=== PATIENT | male | born 1930 | race Caucasian/White ===

== ENCOUNTER → 2016-09-12 | Outpatient (REF) | payer MEDICARE, OTHER ==
[~2016-09-12] MED LIST: /AMIO20TA PO; /FERG32TA PO; /METO25TAB PO; /MIRT30TA PO; /PANT40TA PO; ACET500T PO; ACET50TA PO; ALLO100T PO; ASPI81CH21 PO; ASPI81TA7 PO; ATOR1TAB19 PO; CLOP75TA2 PO; CORE25TA PO; FOLI1TAB86 PO; IMOD2TAB14 PO; LIPI10TA PO; LISI5TAB PO; METAPKT PO; MULTTAB4 PO; PERC7.5T12 PO; SERT-138 PO; SLOWTAB2 PO; VITA500C24 PO; XARE10TA PO; ZANT150T PO
[2016-09-12 12:13] LABS: MEAN CORPUSCULAR HEMOGLOBIN 29.7 pg (27.0-33.0); MEAN CORPUSCULAR HGB CONC 31.5 g/dl (32.0-36.5); MEAN CORPUSCULAR VOLUME 94.1 fl (80.0-96.0); RED CELL DISTRIBUTION WIDTH 15.1 % (11.5-14.5); WHITE BLOOD COUNT 7.7 K/mm3 (4.0-10.0)
[2016-09-12 12:47] LABS: ALBUMIN 3.5 GM/DL (3.2-5.2); ALBUMIN/GLOBULIN RATIO 1.25 (1.00-1.93); ALKALINE PHOSPHATASE 148 U/L (45-117); ALT/SGPT 27 U/L (12-78); ANION GAP 9 MEQ/L (8-16); AST/SGOT 26 U/L (15-37); BILIRUBIN,TOTAL 0.3 MG/DL (0.2-1.0); BLOOD UREA NITROGEN 22 MG/DL (7-18); CALCIUM LEVEL 8.7 MG/DL (8.8-10.2); CARBON DIOXIDE LEVEL 26 MEQ/L (21-32); CHLORIDE LEVEL 110 MEQ/L (98-107); CHOLESTEROL LEVEL 136 MG/DL (<200); CREATININE FOR GFR 1.07 MG/DL (0.70-1.30); GLOMERULAR FILTRATION RATE > 60.0 (>35); GLUCOSE, FASTING 104 MG/DL (83-110); POTASSIUM SERUM 4.1 MEQ/L (3.5-5.1); SODIUM LEVEL 145 MEQ/L (136-145); TOTAL PROTEIN 6.3 GM/DL (6.4-8.2); TRIGLYCERIDES LEVEL 49 MG/DL (<150)
== END ==
LOC: M SFHCPLAZ 08:05
PROVIDERS: ATTEND Internal Medicine
DX: K21.9 Gastro-esophageal reflux disease without esophagitis (principal); I10 Essential (primary) hypertension; I25.10 Atherosclerotic heart disease of native coronary artery without angina pectoris

== ENCOUNTER → 2016-11-06 | Outpatient (CLI) | payer MEDICARE, OTHER ==
--- NOTE | 2016-11-06 15:10 | REP ---
CHEST X-RAY: Two views. HISTORY: Paroxysmal atrial fibrillation. Comparison radiographs are from June 30, 2015. FINDINGS: The patient is status post prior median sternotomy. Bipolar pacemaker is seen in place. The heart is moderately enlarged with cardiothoracic ratio 17.3 cm/30 2.6 cm. Pulmonary vasculature is not increased. There is calcific pleural plaquing visible on the right as before. Degenerative changes are seen in the thoracic spine. The aorta is somewhat tortuous. No infiltrate is seen. IMPRESSION: Moderate cardiomegaly. This is increased when compared with the June 30, 2015 prior study. Pacemaker, prior sternotomy. Signed by Germán Pozo MD 11/06/2016 03:36 P
[2016-11-06 17:53] LABS: ALBUMIN 3.9 GM/DL (3.2-5.2); ALKALINE PHOSPHATASE 141 U/L (45-117); ALT/SGPT 19 U/L (12-78); ANION GAP 10 MEQ/L (8-16); AST/SGOT 24 U/L (15-37); BILIRUBIN,TOTAL 0.3 MG/DL (0.2-1.0); BLOOD UREA NITROGEN 20 MG/DL (7-18); CALCIUM LEVEL 8.6 MG/DL (8.8-10.2); CARBON DIOXIDE LEVEL 27 MEQ/L (21-32); CHLORIDE LEVEL 106 MEQ/L (98-107); CREATININE FOR GFR 1.04 MG/DL (0.70-1.30); GLOMERULAR FILTRATION RATE > 60.0 (>35); GLUCOSE, FASTING 172 MG/DL (83-110); MAGNESIUM LEVEL 2.1 MG/DL (1.8-2.4); POTASSIUM SERUM 3.9 MEQ/L (3.5-5.1); SODIUM LEVEL 143 MEQ/L (136-145); TOTAL PROTEIN 6.9 GM/DL (6.4-8.2)
== END ==
LOC: M SMT 14:14
PROVIDERS: ATTEND Nurse Practitioner Family
DX: I48.0 Paroxysmal atrial fibrillation (principal); I51.7 Cardiomegaly; Z95.0 Presence of cardiac pacemaker

== ENCOUNTER 2017-01-29 19:57 | Emergency (ER) | payer MEDICARE, OTHER ==
[~2017-01-29] VITALS: Ht 175.3 cm; Wt 68.0 kg
[2017-01-29] MEDS ORDERED: ATOR1TAB19 (20:12)
[2017-01-29] MEDS ORDERED: SERT-138 (20:12)
[2017-01-29] MEDS ORDERED: FLOM5CAP (20:12)
[2017-01-29] MEDS ORDERED: ALLO15TA (20:12)
[2017-01-29] MEDS ORDERED: MIRT30TA3 (20:12)
[2017-01-29] MEDS ORDERED: LEVO100T5 (20:12)
[2017-01-29] MEDS ORDERED: CARV12.5 (20:12)
[2017-01-29] MEDS ORDERED: AMIO20TA (20:12)
[2017-01-29] MEDS ORDERED: RANI300T PO (20:17)
[2017-01-29] MEDS ORDERED: ASPIRIN 81 MG CHEW TABLET PO ONE (20:30)
[2017-01-29 20:32] LABS: EOS # 0.1 K/mm3 (0.0-0.50); EOS % 1.4 % (0.0-3.0); LARGE UNSTAINED CELL # 0.1 K/mm3 (0.0-0.4); LARGE UNSTAINED CELL % 0.9 % (0.0-4.0); MEAN CORPUSCULAR HEMOGLOBIN 30.1 pg (27.0-33.0); MEAN CORPUSCULAR HGB CONC 32.5 g/dl (32.0-36.5); MEAN CORPUSCULAR VOLUME 92.6 fl (80.0-96.0); MONO # 0.5 K/mm3 (0.0-0.8); MONO % 5.6 % (0.0-5.0); NEUTROPHILS # 7.6 K/mm3 (1.8-7.7); PLATELET COUNT, AUTOMATED 241 k/mm3 (150-450); RED CELL DISTRIBUTION WIDTH 14.9 % (11.5-14.5); WHITE BLOOD COUNT 9.2 K/mm3 (4.0-10.0)
[2017-01-29 21:08] LABS: CALCIUM LEVEL 9.1 MG/DL (8.8-10.2); CREATININE FOR GFR 1.35 MG/DL (0.70-1.30); GLOMERULAR FILTRATION RATE 53.5 (>35); POTASSIUM SERUM 4.2 MEQ/L (3.5-5.1)
--- NOTE | 2017-01-29 21:36 | REP ---
Clinical: Chest pain. Comparison: 11/06/2016. Findings: Cardiomegaly is appreciated with evidence for prior sternotomy and pacemaker placement. Lung rodarte demonstrate chronic interstitial changes along with scattered partially calcified pleural plaques. Superimposed atelectasis as well as pulmonary vascular congestion cannot definitively be excluded. No definite effusion. No pneumothorax. Skeletal structures demonstrate age-related changes. Impression: Cardiomegaly and chronic changes. Cannot exclude superimposed atelectasis and/or pulmonary vascular congestion. Signed by Isidro Reyes MD 01/29/2017 09:28 P
--- NOTE | 2017-01-29 21:45 | ECGEPIP ---
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
[2017-01-30 02:01] VITALS: BP 162/78
--- NOTE | 2017-01-31 14:13 | ECGEPIP ---
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
== END 2017-01-30 02:10 | disposition home or self-care (01) ==
LOC: M ED 22:10
DX: R07.89 Other chest pain (principal); I51.7 Cardiomegaly; I25.10 Atherosclerotic heart disease of native coronary artery without angina pectoris; I25.2 Old myocardial infarction; Z82.49 Family history of ischemic heart disease and other diseases of the circulatory system; Z79.82 Long term (current) use of aspirin; Z79.899 Other long term (current) drug therapy; Z88.8 Allergy status to other drugs, medicaments and biological substances

== ENCOUNTER → 2017-03-14 | Outpatient (REF) | payer MEDICARE, OTHER ==
[~2017-03-14] MED LIST changes: +ALLO15TA; +AMIO200T; +ATOR1TAB19; +CARV12.5; +FLOM5CAP; +LEVO100T5; +MIRT30TA3; +RANI300T PO; +SERT-138
[2017-03-14 11:08] LABS: MEAN CORPUSCULAR HEMOGLOBIN 30.2 pg (27.0-33.0); MEAN CORPUSCULAR HGB CONC 32.3 g/dl (32.0-36.5); MEAN CORPUSCULAR VOLUME 93.4 fl (80.0-96.0); RED CELL DISTRIBUTION WIDTH 14.7 % (11.5-14.5)
[2017-03-14 11:37] LABS: ALBUMIN 3.7 GM/DL (3.2-5.2); ALBUMIN/GLOBULIN RATIO 1.23 (1.00-1.93); ALKALINE PHOSPHATASE 131 U/L (45-117); ALT/SGPT 22 U/L (12-78); ANION GAP 7 MEQ/L (8-16); AST/SGOT 24 U/L (15-37); BILIRUBIN,TOTAL 0.5 MG/DL (0.2-1.0); BLOOD UREA NITROGEN 18 MG/DL (7-18); CALCIUM LEVEL 9.2 MG/DL (8.8-10.2); CARBON DIOXIDE LEVEL 27 MEQ/L (21-32); CHLORIDE LEVEL 110 MEQ/L (98-107); CREATININE FOR GFR 0.96 MG/DL (0.70-1.30); GLOMERULAR FILTRATION RATE > 60.0 (>35); GLUCOSE, FASTING 97 MG/DL (83-110); SODIUM LEVEL 144 MEQ/L (136-145); TOTAL PROTEIN 6.7 GM/DL (6.4-8.2)
== END ==
LOC: M SFHCPLAZ 08:15
PROVIDERS: ATTEND Internal Medicine
DX: K21.9 Gastro-esophageal reflux disease without esophagitis (principal); I10 Essential (primary) hypertension; E03.9 Hypothyroidism, unspecified

== ENCOUNTER → 2017-09-12 | Outpatient (REF) | payer MEDICARE, OTHER ==
[2017-09-12 13:57] LABS: HEMATOCRIT 38.6 % (42.0-52.0); HEMOGLOBIN 12.4 g/dl (14.0-18.0); MEAN CORPUSCULAR HEMOGLOBIN 29.7 pg (27.0-33.0); MEAN CORPUSCULAR HGB CONC 32.1 g/dl (32.0-36.5); MEAN CORPUSCULAR VOLUME 92.6 fl (80.0-96.0); RED BLOOD COUNT 4.17 10^6/uL (4.30-6.10); RED CELL DISTRIBUTION WIDTH 14.3 % (11.5-14.5); WHITE BLOOD COUNT 7.5 10^3/uL (4.0-10.0)
[2017-09-12 14:16] LABS: ALBUMIN 3.9 GM/DL (3.2-5.2); ALBUMIN/GLOBULIN RATIO 1.44 (1.00-1.93); ALKALINE PHOSPHATASE 146 U/L (45-117); ALT/SGPT 20 U/L (12-78); ANION GAP 7 MEQ/L (8-16); AST/SGOT 25 U/L (7-37); BILIRUBIN,TOTAL 0.3 MG/DL (0.2-1.0); BLOOD UREA NITROGEN 24 MG/DL (7-18); CALCIUM LEVEL 8.9 MG/DL (8.8-10.2); CARBON DIOXIDE LEVEL 29 MEQ/L (21-32); CHLORIDE LEVEL 107 MEQ/L (98-107); CHOLESTEROL LEVEL 137 MG/DL (<200); CHOLESTEROL RISK RATIO 1.876 (<5); CREATININE FOR GFR 0.98 MG/DL (0.70-1.30); GLOMERULAR FILTRATION RATE > 60.0 (>35); GLUCOSE, FASTING 96 MG/DL (83-110); HDL CHOLESTEROL 73 MG/DL (>40); LDL CHOLESTEROL 54.4 MG/DL (<100); MAGNESIUM LEVEL 2.1 MG/DL (1.8-2.4); NON-HDL-C 64 MG/DL; POTASSIUM SERUM 4.1 MEQ/L (3.5-5.1); SODIUM LEVEL 143 MEQ/L (136-145); TOTAL PROTEIN 6.6 GM/DL (6.4-8.2); TRIGLYCERIDES LEVEL 48 MG/DL (<150)
[2017-09-12 14:35] LABS: PLT CLUMPS? POS FLAG; POS COUNT POS FLAG
[2017-09-12 14:36] LABS: PLATELET COUNT, AUTOMATED 137 10^3/uL (150-450)
== END ==
LOC: M SFHCPLAZ 10:08
DX: K21.9 Gastro-esophageal reflux disease without esophagitis (principal); I10 Essential (primary) hypertension; I25.10 Atherosclerotic heart disease of native coronary artery without angina pectoris; E78.00 Pure hypercholesterolemia, unspecified; E03.9 Hypothyroidism, unspecified
CPT/HCPCS: 83735

== ENCOUNTER 2017-11-15 11:24 | Observation (INO) | payer MEDICARE, OTHER ==
[2017-11-15 11:56] LABS: BASO % 0.2 % (0.0-1.0); EOS # 0.1 10^3/uL (0.0-0.50); EOS % 1.3 % (0.0-3.0); HEMATOCRIT 37.7 % (42.0-52.0); HEMOGLOBIN 12.3 g/dl (14.0-18.0); IMMATURE GRANULOCYTE % 0.5 % (0-3.0); LYMPH # 1.1 10^3/uL (1.5-4.5); LYMPH % 12.7 % (24.0-44.0); MEAN CORPUSCULAR HEMOGLOBIN 29.8 pg (27.0-33.0); MEAN CORPUSCULAR HGB CONC 32.6 g/dl (32.0-36.5); MEAN CORPUSCULAR VOLUME 91.3 fl (80.0-96.0); MONO # 0.7 10^3/uL (0.0-0.8); MONO % 7.8 % (0.0-5.0); NEUTROPHILS # 6.6 10^3/uL (1.8-7.7); NEUTROPHILS % 77.5 % (36.0-66.0); PLATELET COUNT, AUTOMATED 182 10^3/uL (150-450); RED BLOOD COUNT 4.13 10^6/uL (4.30-6.10); RED CELL DISTRIBUTION WIDTH 14.9 % (11.5-14.5); WHITE BLOOD COUNT 8.6 10^3/uL (4.0-10.0)
[2017-11-15 12:09] LABS: INR 1.03; PROTHROMBIN TIME 13.6 SECONDS (12.4-14.5)
[2017-11-15 12:21] LABS: ALBUMIN 3.6 GM/DL (3.2-5.2); ALBUMIN/GLOBULIN RATIO 0.95 (1.00-1.93); ALKALINE PHOSPHATASE 160 U/L (45-117); ALT/SGPT 22 U/L (12-78); ANION GAP 7 MEQ/L (8-16); AST/SGOT 25 U/L (7-37); BILIRUBIN,DIRECT 0.1 MG/DL (0.0-0.2); BILIRUBIN,TOTAL 0.5 MG/DL (0.2-1.0); BLOOD UREA NITROGEN 19 MG/DL (7-18); CALCIUM LEVEL 9.1 MG/DL (8.8-10.2); CARBON DIOXIDE LEVEL 29 MEQ/L (21-32); CHLORIDE LEVEL 105 MEQ/L (98-107); CREATININE FOR GFR 0.91 MG/DL (0.70-1.30); GLOMERULAR FILTRATION RATE > 60.0 (>35); GLUCOSE, FASTING 94 MG/DL (70-100); LIPASE 148 U/L (73-393); POTASSIUM SERUM 4.3 MEQ/L (3.5-5.1); SODIUM LEVEL 141 MEQ/L (136-145); TOTAL PROTEIN 7.4 GM/DL (6.4-8.2)
[2017-11-15] MEDS: PANTOPRAZOLE 40MG INJ (PROTONIX) (C9113) IV ×2 (12:45)
[2017-11-15] MEDS ORDERED: GASTROGRAFIN SOLUTION 30ML (Q9963) As Ordered ×2 (13:41)
[2017-11-15] MEDS ORDERED: PANTOPRAZOLE 40MG TAB (PROTONIX) PO ×2 (13:45)
[2017-11-15] MEDS: GASTROGRAFIN SOLUTION 30ML (Q9963) PO ×4 (13:55→14:25)
[2017-11-15 19:11] LABS: HEMATOCRIT 34.1 % (42.0-52.0); HEMOGLOBIN 11.2 g/dl (14.0-18.0)
[2017-11-15 19:31] LABS: CK-MB VALUE MASS 2.2 NG/ML (0.0-3.6); CPK CREATINE PHOSPHOKINASE 103 U/L (39-308); MB/CK RELATIVE INDEX 2.13 (< OR =4); TROPONIN I < 0.02 NG/ML (< 0.10)
[2017-11-15] MEDS: CARVedilol 6.25 MG TAB PO ×2 (22:04)
[2017-11-15] MEDS: ANUSOL HC 25MG SUPP PR ×2 (22:05)
[2017-11-15] MEDS: MIRTAZAPINE 15 MG TAB PO ×2 (22:05)
[2017-11-16 00:27] LABS: HEMATOCRIT 34.2 % (42.0-52.0); HEMOGLOBIN 11.2 g/dl (14.0-18.0)
[2017-11-16 00:56] LABS: CK-MB VALUE MASS 1.9 NG/ML (0.0-3.6); CPK CREATINE PHOSPHOKINASE 85 U/L (39-308); MB/CK RELATIVE INDEX 2.23 (< OR =4); TROPONIN I < 0.02 NG/ML (< 0.10)
[2017-11-16] MEDS: LEVOTHYROXINE 100MCG TABLET (0.1MG) PO ×2 (05:44)
[2017-11-16 05:53] LABS: BASO % 0.1 % (0.0-1.0); EOS # 0.1 10^3/uL (0.0-0.50); EOS % 1.8 % (0.0-3.0); HEMATOCRIT 34.2 % (42.0-52.0); HEMOGLOBIN 11.2 g/dl (14.0-18.0); IMMATURE GRANULOCYTE % 0.3 % (0-3.0); LYMPH # 0.7 10^3/uL (1.5-4.5); LYMPH % 9.3 % (24.0-44.0); MEAN CORPUSCULAR HEMOGLOBIN 29.7 pg (27.0-33.0); MEAN CORPUSCULAR HGB CONC 32.7 g/dl (32.0-36.5); MEAN CORPUSCULAR VOLUME 90.7 fl (80.0-96.0); MONO # 0.7 10^3/uL (0.0-0.8); MONO % 9.2 % (0.0-5.0); NEUTROPHILS # 5.8 10^3/uL (1.8-7.7); NEUTROPHILS % 79.3 % (36.0-66.0); PLATELET COUNT, AUTOMATED 165 10^3/uL (150-450); RED BLOOD COUNT 3.77 10^6/uL (4.30-6.10); WHITE BLOOD COUNT 7.3 10^3/uL (4.0-10.0)
[2017-11-16 06:13] LABS: ANION GAP 8 MEQ/L (8-16); BLOOD UREA NITROGEN 14 MG/DL (7-18); CALCIUM LEVEL 8.6 MG/DL (8.8-10.2); CARBON DIOXIDE LEVEL 29 MEQ/L (21-32); CHLORIDE LEVEL 108 MEQ/L (98-107); CREATININE FOR GFR 0.79 MG/DL (0.70-1.30); GLOMERULAR FILTRATION RATE > 60.0 (>35); GLUCOSE, FASTING 93 MG/DL (70-100); POTASSIUM SERUM 3.7 MEQ/L (3.5-5.1); SODIUM LEVEL 145 MEQ/L (136-145)
[2017-11-16 06:17] LABS: CK-MB VALUE MASS 1.7 NG/ML (0.0-3.6); CPK CREATINE PHOSPHOKINASE 80 U/L (39-308); MB/CK RELATIVE INDEX 2.12 (< OR =4); TROPONIN I 0.02 NG/ML (< 0.10)
[2017-11-16] MEDS: TAMSULOSIN 0.4 MG CAP PO ×2 (09:06)
[2017-11-16] MEDS: ALLOPURINOL 100 MG TAB PO ×2 (09:06)
[2017-11-16] MEDS: MULTIVITAMINS/MINERALS THERAP 1 TAB PO ×2 (09:06)
[2017-11-16] MEDS: SERTRALINE 100 MG TAB PO ×2 (09:07)
[2017-11-16] MEDS: ATORVASTATIN 10 MG TAB PO ×2 (09:07)
[2017-11-16] MEDS: PANTOPRAZOLE 40MG TAB (PROTONIX) PO ×2 (09:07)
[2017-11-16] MEDS: ANUSOL HC 25MG SUPP PR ×2 (09:07)
[2017-11-16] MEDS: AMIODARONE 200 MG TAB (PACERONE) PO ×2 (09:11)
[2017-11-16] MEDS: CARVedilol 6.25 MG TAB PO ×2 (09:14)
[2017-11-16 10:06] LABS: FREE T4 1.36 NG/DL (0.76-1.46)
[2017-11-16 12:38] LABS: HEMATOCRIT 37.3 % (42.0-52.0); HEMOGLOBIN 12.1 g/dl (14.0-18.0)
[2017-11-16 18:18] LABS: HEMATOCRIT 36.2 % (42.0-52.0); HEMOGLOBIN 11.9 g/dl (14.0-18.0)
[2017-11-16 18:24] LABS: POS COUNT POS FLAG
== END 2017-11-16 18:48 | disposition home or self-care (01) ==
LOC: M ED 11:24 → M ED INP 12:59 → M MSPAV 15:43
DX: K92.2 Gastrointestinal hemorrhage, unspecified (principal); K62.3 Rectal prolapse; I25.10 Atherosclerotic heart disease of native coronary artery without angina pectoris; I48.91 Unspecified atrial fibrillation; I11.9 Hypertensive heart disease without heart failure; E03.9 Hypothyroidism, unspecified; N40.0 Benign prostatic hyperplasia without lower urinary tract symptoms; F41.9 Anxiety disorder, unspecified; F32.9 Major depressive disorder, single episode, unspecified; K21.9 Gastro-esophageal reflux disease without esophagitis; M10.9 Gout, unspecified; I49.5 Sick sinus syndrome; E78.5 Hyperlipidemia, unspecified; R93.5 Abnormal findings on diagnostic imaging of other abdominal regions, including retroperitoneum; K57.30 Diverticulosis of large intestine without perforation or abscess without bleeding; K52.9 Noninfective gastroenteritis and colitis, unspecified; Z95.1 Presence of aortocoronary bypass graft; Z95.0 Presence of cardiac pacemaker; Z79.899 Other long term (current) drug therapy; Z79.82 Long term (current) use of aspirin; Z88.8 Allergy status to other drugs, medicaments and biological substances
CPT/HCPCS: C9113

== ENCOUNTER → 2018-03-14 | Outpatient (REF) | payer MEDICARE, OTHER ==
[2018-03-14 12:37] LABS: ALBUMIN 3.6 GM/DL (3.2-5.2); ALBUMIN/GLOBULIN RATIO 1.24 (1.00-1.93); ALKALINE PHOSPHATASE 150 U/L (45-117); ALT/SGPT 21 U/L (12-78); ANION GAP 7 MEQ/L (8-16); AST/SGOT 25 U/L (7-37); BILIRUBIN,TOTAL 0.3 MG/DL (0.2-1.0); BLOOD UREA NITROGEN 24 MG/DL (7-18); CALCIUM LEVEL 8.5 MG/DL (8.8-10.2); CARBON DIOXIDE LEVEL 27 MEQ/L (21-32); CHLORIDE LEVEL 111 MEQ/L (98-107); CREATININE FOR GFR 1.06 MG/DL (0.70-1.30); GLOMERULAR FILTRATION RATE > 60.0 (>35); GLUCOSE, FASTING 103 MG/DL (70-100); MAGNESIUM LEVEL 2.1 MG/DL (1.8-2.4); POTASSIUM SERUM 4.3 MEQ/L (3.5-5.1); SODIUM LEVEL 145 MEQ/L (136-145); TOTAL PROTEIN 6.5 GM/DL (6.4-8.2)
[2018-03-14 12:38] LABS: HEMATOCRIT 38.3 % (42.0-52.0); HEMOGLOBIN 12.4 g/dl (13.5-17.5); MEAN CORPUSCULAR HGB CONC 32.4 g/dl (32.0-36.5); MEAN CORPUSCULAR VOLUME 92.7 fl (80.0-96.0); RED BLOOD COUNT 4.13 10^6/uL (4.30-6.10); RED CELL DISTRIBUTION WIDTH 15.3 % (11.5-14.5); WHITE BLOOD COUNT 8.4 10^3/uL (4.0-10.0)
[2018-03-14 13:22] LABS: POS COUNT POS FLAG
== END ==
LOC: M SFHCPLAZ 08:54
DX: K21.9 Gastro-esophageal reflux disease without esophagitis (principal); I10 Essential (primary) hypertension; E03.9 Hypothyroidism, unspecified
CPT/HCPCS: 83735

== ENCOUNTER 2018-06-09 16:20 | Inpatient (IN) | payer MEDICARE, OTHER ==
[2018-06-09] MEDS: NS 500 ML IV (16:45)
[2018-06-09] MEDS: IPRATROPIUM 0.5MG/ALBUTEROL 2.5MG INH SOL UD 3ML (DUONEB)(J7620) NEB (16:51)
[2018-06-09] MEDS: LevoFLOXacin IV 750 MG in APPROPRIATE DILUENT 1 EA IV (17:02)
[2018-06-09 17:09] LABS: BASO % 0.1 % (0.0-1.0); EOS # 0.1 10^3/uL (0.0-0.50); EOS % 0.3 % (0.0-3.0); HEMATOCRIT 34.3 % (42.0-52.0); HEMOGLOBIN 11.1 g/dl (13.5-17.5); IMMATURE GRANULOCYTE % 1.1 % (0-3.0); LYMPH # 0.6 10^3/uL (1.5-4.5); LYMPH % 4.1 % (24.0-44.0); MEAN CORPUSCULAR HEMOGLOBIN 30.1 pg (27.0-33.0); MEAN CORPUSCULAR HGB CONC 32.4 g/dl (32.0-36.5); MONO # 0.8 10^3/uL (0.0-0.8); MONO % 5.5 % (0.0-5.0); NEUTROPHILS # 13.2 10^3/uL (1.8-7.7); NEUTROPHILS % 88.9 % (36.0-66.0); PLATELET COUNT, AUTOMATED 297 10^3/uL (150-450); RED BLOOD COUNT 3.69 10^6/uL (4.30-6.10); RED CELL DISTRIBUTION WIDTH 13.9 % (11.5-14.5); WHITE BLOOD COUNT 14.8 10^3/uL (4.0-10.0)
[2018-06-09 17:40] LABS: LACTIC ACID SEPSIS PROTOCOL 1.2 MMOL/L (0.4-2.0)
[2018-06-09 17:42] LABS: INFLUENZA A AMPLIFICATION NEGATIVE (NEGATIVE); INFLUENZA B AMPLIFICATION NEGATIVE (NEGATIVE)
[2018-06-09 17:43] LABS: ABG BASE EXCESS 3.3 (-2.0-2.0); ABG HCO3 28.2 MEQ/L (22.0-26.0); ABG O2 SATURATION 97.4 % (95.0-99.0); ABG PARTIAL PRESSURE CO2 44.6 mmHg (35.0-45.0); ABG PARTIAL PRESSURE O2 93.2 mmHg (75.0-100.0); ABG STANDARD HCO3 27.4 MEQ/L (22.0-26.0); ABG TOTAL CO2 29.6 MEQ/L (23.0-31.0); ABG pH (ARTERIAL) 7.419 UNITS (7.350-7.450)
[2018-06-09 17:45] LABS: ALBUMIN 2.8 GM/DL (3.2-5.2); ALBUMIN/GLOBULIN RATIO 0.68 (1.00-1.93); ALKALINE PHOSPHATASE 121 U/L (45-117); ALT/SGPT 28 U/L (12-78); ANION GAP 10 MEQ/L (8-16); AST/SGOT 24 U/L (7-37); BILIRUBIN,DIRECT 0.3 MG/DL (0.0-0.2); BILIRUBIN,TOTAL 0.5 MG/DL (0.2-1.0); BLOOD UREA NITROGEN 16 MG/DL (7-18); CALCIUM LEVEL 8.6 MG/DL (8.8-10.2); CARBON DIOXIDE LEVEL 28 MEQ/L (21-32); CHLORIDE LEVEL 105 MEQ/L (98-107); CPK CREATINE PHOSPHOKINASE 97 U/L (39-308); CREATININE FOR GFR 0.97 MG/DL (0.70-1.30); GLOMERULAR FILTRATION RATE > 60.0 (>35); GLUCOSE, FASTING 105 MG/DL (70-100); MB/CK RELATIVE INDEX 2.47 (< OR =4); NT-PRO BNP 3041 PG/ML (<450); POTASSIUM SERUM 3.8 MEQ/L (3.5-5.1); SODIUM LEVEL 143 MEQ/L (136-145); THYROXINE (T4) 11.7 UG/DL (4.5-12.0); TOTAL PROTEIN 6.9 GM/DL (6.4-8.2); TROPONIN I 0.04 NG/ML (< 0.10)
[2018-06-09 18:15] LABS: INR 1.11; PROTHROMBIN TIME 14.4 SECONDS (12.1-14.4)
[2018-06-09] MEDS ORDERED: ISOVUE-370 76% 100ML VIAL (Q9967) As Ordered (19:04)
[2018-06-09] MEDS ORDERED: ACETAMINOPHEN TAB 650MG DOSE (2X325MG) PO (20:00)
[2018-06-09] MEDS: FUROSEMIDE 20 MG/2 ML VIAL (J1940) IV (20:05)
[2018-06-09 20:32] LABS: CPK CREATINE PHOSPHOKINASE 82 U/L (39-308); MB/CK RELATIVE INDEX 2.93 (< OR =4); TROPONIN I 0.03 NG/ML (< 0.10)
[2018-06-09] MEDS ORDERED: HEPARIN SOD (PORCINE) 5000 UNITS/ML VIAL SC (22:00)
[2018-06-10] MEDS: guaiFENesin ER 600 MG TAB PO ×3 (00:55→20:58)
[2018-06-10] MEDS: HEPARIN SOD (PORCINE) 5000 UNITS/ML VIAL SC ×3 (00:55→21:04)
[2018-06-10] MEDS: FAMOTIDINE 20 MG TAB PO ×2 (00:55→20:58)
[2018-06-10] MEDS: cefTRIAXone SOD 2 GM in D5W MINI-BAG PLUS 50 ML IV ×2 (00:55→21:05)
[2018-06-10] MEDS: MIRTAZAPINE 15 MG TAB PO ×2 (00:56→20:58)
[2018-06-10] MEDS: CARVedilol 12.5 MG TAB PO ×3 (00:56→20:58)
[2018-06-10] MEDS: IPRATROPIUM 0.5MG/ALBUTEROL 2.5MG INH SOL UD 3ML (DUONEB)(J7620) NEB ×3 (02:00→14:21)
[2018-06-10] MEDS: FLUTICASONE PROP 0.05% NASAL SPRAY 16 GM (FLONASE) ×3 (02:20→20:58)
[2018-06-10] MEDS: DOXYCYCLINE HYCLATE 100 MG in D5W MINI-BAG PLUS 100 ML IV ×3 (02:20→22:29)
[2018-06-10 05:26] LABS: HEMATOCRIT 32.4 % (42.0-52.0); HEMOGLOBIN 10.7 g/dl (13.5-17.5); MEAN CORPUSCULAR HEMOGLOBIN 29.8 pg (27.0-33.0); MEAN CORPUSCULAR VOLUME 90.3 fl (80.0-96.0); PLATELET COUNT, AUTOMATED 267 10^3/uL (150-450); RED BLOOD COUNT 3.59 10^6/uL (4.30-6.10); RED CELL DISTRIBUTION WIDTH 13.6 % (11.5-14.5); WHITE BLOOD COUNT 14.7 10^3/uL (4.0-10.0)
[2018-06-10 05:48] LABS: ALBUMIN 2.6 GM/DL (3.2-5.2); ALBUMIN/GLOBULIN RATIO 0.67 (1.00-1.93); ALKALINE PHOSPHATASE 108 U/L (45-117); ALT/SGPT 23 U/L (12-78); ANION GAP 10 MEQ/L (8-16); AST/SGOT 21 U/L (7-37); BILIRUBIN,TOTAL 0.3 MG/DL (0.2-1.0); BLOOD UREA NITROGEN 15 MG/DL (7-18); CALCIUM LEVEL 8.6 MG/DL (8.8-10.2); CARBON DIOXIDE LEVEL 29 MEQ/L (21-32); CHLORIDE LEVEL 104 MEQ/L (98-107); CREATININE FOR GFR 0.84 MG/DL (0.70-1.30); GLOMERULAR FILTRATION RATE > 60.0 (>35); GLUCOSE, FASTING 103 MG/DL (70-100); MAGNESIUM LEVEL 2.1 MG/DL (1.8-2.4); POTASSIUM SERUM 3.5 MEQ/L (3.5-5.1); SODIUM LEVEL 143 MEQ/L (136-145); TOTAL PROTEIN 6.5 GM/DL (6.4-8.2)
[2018-06-10] MEDS: ALBUTEROL SULFATE 2.5 MG/0.5 ML INH NEB SOLN NEB ×3 (07:16→20:28)
[2018-06-10] MEDS: ATORVASTATIN 10 MG TAB PO (09:37)
[2018-06-10] MEDS: TAMSULOSIN 0.4 MG CAP PO (09:38)
[2018-06-10] MEDS: ALLOPURINOL 300 MG TAB PO (09:38)
[2018-06-10] MEDS: OMEGA-3 1000MG CAPSULE PO (09:38)
[2018-06-10] MEDS: MULTIVITAMINS/MINERALS THERAP 1 TAB PO (09:39)
[2018-06-10] MEDS: SERTRALINE 100 MG TAB PO (09:39)
[2018-06-10] MEDS: LEVOTHYROXINE 100MCG TABLET (0.1MG) PO (09:39)
[2018-06-10] MEDS: AMIODARONE 200 MG TAB (PACERONE) PO (09:39)
[2018-06-10] MEDS: FUROSEMIDE 20 MG/2 ML VIAL (J1940) IV ×2 (09:40→17:01)
[2018-06-10] MEDS: INFLUENZA VIRUS VACCINE HIGH DOSE 0.5 ML SYRINGE (90662) IM (09:43)
[2018-06-10] MEDS ORDERED: PILL CRUSHER/CUTTER 1 EACH XX (11:30)
[2018-06-10] MEDS: ASPIRIN 81 MG ENTERIC TAB PO (20:58)
[2018-06-11] MEDS: ALBUTEROL SULFATE 2.5 MG/0.5 ML INH NEB SOLN NEB ×4 (01:56→20:22)
[2018-06-11 05:36] LABS: HEMATOCRIT 32.3 % (42.0-52.0); HEMOGLOBIN 10.7 g/dl (13.5-17.5); MEAN CORPUSCULAR HEMOGLOBIN 30.7 pg (27.0-33.0); MEAN CORPUSCULAR HGB CONC 33.1 g/dl (32.0-36.5); MEAN CORPUSCULAR VOLUME 92.6 fl (80.0-96.0); PLATELET COUNT, AUTOMATED 256 10^3/uL (150-450); RED BLOOD COUNT 3.49 10^6/uL (4.30-6.10); WHITE BLOOD COUNT 15.7 10^3/uL (4.0-10.0)
[2018-06-11 06:02] LABS: ALBUMIN 2.4 GM/DL (3.2-5.2); ALBUMIN/GLOBULIN RATIO 0.67 (1.00-1.93); ALKALINE PHOSPHATASE 99 U/L (45-117); ALT/SGPT 21 U/L (12-78); ANION GAP 9 MEQ/L (8-16); AST/SGOT 18 U/L (7-37); BILIRUBIN,TOTAL 0.2 MG/DL (0.2-1.0); BLOOD UREA NITROGEN 18 MG/DL (7-18); C REACTIVE PROTEIN QUANTITATIV 9.03 MG/DL (0.00-0.30); CALCIUM LEVEL 8.3 MG/DL (8.8-10.2); CARBON DIOXIDE LEVEL 29 MEQ/L (21-32); CHLORIDE LEVEL 104 MEQ/L (98-107); CREATININE FOR GFR 0.94 MG/DL (0.70-1.30); GLOMERULAR FILTRATION RATE > 60.0 (>35); GLUCOSE, FASTING 112 MG/DL (70-100); MAGNESIUM LEVEL 1.9 MG/DL (1.8-2.4); POTASSIUM SERUM 3.1 MEQ/L (3.5-5.1); SODIUM LEVEL 142 MEQ/L (136-145)
[2018-06-11] MEDS: POTASSIUM CHLORIDE 10 MEQ SR TABLET PO (06:30)
[2018-06-11] MEDS: KCL 10MEQ/100ML SWI (KRUN) 10 MEQ in APPROPRIATE DILUENT 1 EA IV ×2 (06:56→10:02)
[2018-06-11] MEDS: OMEGA-3 1000MG CAPSULE PO (08:42)
[2018-06-11] MEDS: MULTIVITAMINS/MINERALS THERAP 1 TAB PO (08:42)
[2018-06-11] MEDS: ALLOPURINOL 300 MG TAB PO (08:42)
[2018-06-11] MEDS: SERTRALINE 100 MG TAB PO (08:42)
[2018-06-11] MEDS: AMIODARONE 200 MG TAB (PACERONE) PO (08:42)
[2018-06-11] MEDS: guaiFENesin ER 600 MG TAB PO ×2 (08:42→21:33)
[2018-06-11] MEDS: TAMSULOSIN 0.4 MG CAP PO (08:42)
[2018-06-11] MEDS: LEVOTHYROXINE 100MCG TABLET (0.1MG) PO (08:42)
[2018-06-11] MEDS: ATORVASTATIN 10 MG TAB PO (08:42)
[2018-06-11] MEDS: FLUTICASONE PROP 0.05% NASAL SPRAY 16 GM (FLONASE) ×2 (08:43→21:34)
[2018-06-11] MEDS: CARVedilol 12.5 MG TAB PO ×2 (08:46→21:33)
[2018-06-11] MEDS: FUROSEMIDE 20 MG/2 ML VIAL (J1940) IV ×2 (09:19→16:59)
[2018-06-11] MEDS: HEPARIN SOD (PORCINE) 5000 UNITS/ML VIAL SC ×2 (09:20→21:34)
[2018-06-11] MEDS: DOXYCYCLINE HYCLATE 100 MG in D5W MINI-BAG PLUS 100 ML IV (11:16)
[2018-06-11] MEDS: FAMOTIDINE 20 MG TAB PO (21:33)
[2018-06-11] MEDS: ASPIRIN 81 MG ENTERIC TAB PO (21:33)
[2018-06-11] MEDS: MIRTAZAPINE 15 MG TAB PO (21:33)
[2018-06-11] MEDS: cefTRIAXone SOD 2 GM in D5W MINI-BAG PLUS 50 ML IV (21:34)
[2018-06-12] MEDS: ALBUTEROL SULFATE 2.5 MG/0.5 ML INH NEB SOLN NEB ×3 (02:00→13:18)
[2018-06-12 06:00] LABS: HEMATOCRIT 34.5 % (42.0-52.0); MEAN CORPUSCULAR HEMOGLOBIN 30.1 pg (27.0-33.0); MEAN CORPUSCULAR HGB CONC 31.9 g/dl (32.0-36.5); MEAN CORPUSCULAR VOLUME 94.3 fl (80.0-96.0); PLATELET COUNT, AUTOMATED 266 10^3/uL (150-450); RED BLOOD COUNT 3.66 10^6/uL (4.30-6.10); RED CELL DISTRIBUTION WIDTH 13.7 % (11.5-14.5); WHITE BLOOD COUNT 12.6 10^3/uL (4.0-10.0)
[2018-06-12 06:20] LABS: ALBUMIN 2.5 GM/DL (3.2-5.2); ALBUMIN/GLOBULIN RATIO 0.66 (1.00-1.93); ALKALINE PHOSPHATASE 103 U/L (45-117); ALT/SGPT 20 U/L (12-78); ANION GAP 6 MEQ/L (8-16); AST/SGOT 19 U/L (7-37); BILIRUBIN,TOTAL 0.2 MG/DL (0.2-1.0); BLOOD UREA NITROGEN 20 MG/DL (7-18); C REACTIVE PROTEIN QUANTITATIV 6.43 MG/DL (0.00-0.30); CALCIUM LEVEL 8.4 MG/DL (8.8-10.2); CARBON DIOXIDE LEVEL 31 MEQ/L (21-32); CHLORIDE LEVEL 107 MEQ/L (98-107); GLOMERULAR FILTRATION RATE > 60.0 (>35); GLUCOSE, FASTING 115 MG/DL (70-100); POTASSIUM SERUM 3.5 MEQ/L (3.5-5.1); SODIUM LEVEL 144 MEQ/L (136-145); TOTAL PROTEIN 6.3 GM/DL (6.4-8.2)
[2018-06-12] MEDS ORDERED: SLF 3 ML SYR IV ×2 (09:00→14:00)
[2018-06-12] MEDS: FLUTICASONE PROP 0.05% NASAL SPRAY 16 GM (FLONASE) (09:00)
[2018-06-12] MEDS: HEPARIN SOD (PORCINE) 5000 UNITS/ML VIAL SC (09:21)
[2018-06-12] MEDS: FUROSEMIDE 20 MG/2 ML VIAL (J1940) IV (09:21)
[2018-06-12] MEDS: LEVOTHYROXINE 100MCG TABLET (0.1MG) PO (09:21)
[2018-06-12] MEDS: SERTRALINE 100 MG TAB PO (09:22)
[2018-06-12] MEDS: AMIODARONE 200 MG TAB (PACERONE) PO (09:22)
[2018-06-12] MEDS: OMEGA-3 1000MG CAPSULE PO (09:22)
[2018-06-12] MEDS: TAMSULOSIN 0.4 MG CAP PO (09:22)
[2018-06-12] MEDS: ATORVASTATIN 10 MG TAB PO (09:22)
[2018-06-12] MEDS: MULTIVITAMINS/MINERALS THERAP 1 TAB PO (09:22)
[2018-06-12] MEDS: guaiFENesin ER 600 MG TAB PO (09:22)
[2018-06-12] MEDS: ALLOPURINOL 300 MG TAB PO (09:22)
[2018-06-12] MEDS: POTASSIUM CHLORIDE 10 MEQ SR TABLET PO (09:23)
[2018-06-12] MEDS: CARVedilol 12.5 MG TAB PO (09:23)
== END 2018-06-12 14:00 | disposition home or self-care (01) | DRG 193 ==
LOC: M ED 16:20 → M ED INP 19:50 → M PCU 23:26
DX: J15.9 Unspecified bacterial pneumonia (principal); I50.31 Acute diastolic (congestive) heart failure; A04.0 Enteropathogenic Escherichia coli infection; J00 Acute nasopharyngitis [common cold]; I25.10 Atherosclerotic heart disease of native coronary artery without angina pectoris; M10.9 Gout, unspecified; K21.9 Gastro-esophageal reflux disease without esophagitis; I48.0 Paroxysmal atrial fibrillation; H10.9 Unspecified conjunctivitis; I27.20 Pulmonary hypertension, unspecified; I11.0 Hypertensive heart disease with heart failure; I50.810 Right heart failure, unspecified; N40.0 Benign prostatic hyperplasia without lower urinary tract symptoms; E78.5 Hyperlipidemia, unspecified; F41.9 Anxiety disorder, unspecified; F32.9 Major depressive disorder, single episode, unspecified; I49.5 Sick sinus syndrome; Z77.090 Contact with and (suspected) exposure to asbestos; Z88.8 Allergy status to other drugs, medicaments and biological substances; Z96.651 Presence of right artificial knee joint; Z98.42 Cataract extraction status, left eye; Z98.41 Cataract extraction status, right eye; Z95.1 Presence of aortocoronary bypass graft; Z79.82 Long term (current) use of aspirin; Z79.899 Other long term (current) drug therapy; Z95.0 Presence of cardiac pacemaker

== ENCOUNTER → 2018-09-18 | Outpatient (REF) | payer MEDICARE, OTHER ==
[~2018-09-18] MED LIST changes: +AMIO200T PO; +ANUSHCSU PR; +ASPI1TAB PO; +CARV12.5 PO; +CEFD1CAP8 PO; +FISH1000 PO; +FLOM0.4C39; +FLOM0.4C39 PO; -FLOM5CAP; +FLON1SPR; +IMOD2TAB16 PO; +MIRT30TA3 PO; +NITR4TASL SL; +OSTETAB2 PO; +PANT40TA3 PO; +REFR0.5D8 OU; +UNIT1TAB5 PO; +VITMTA PO; +ZYLO300T6 PO
[2018-09-18 12:18] LABS: HEMATOCRIT 36.7 % (42.0-52.0); HEMOGLOBIN 11.5 g/dl (13.5-17.5); MEAN CORPUSCULAR HEMOGLOBIN 28.6 pg (27.0-33.0); MEAN CORPUSCULAR HGB CONC 31.3 g/dl (32.0-36.5); MEAN CORPUSCULAR VOLUME 91.3 fl (80.0-96.0); PLATELET COUNT, AUTOMATED 145 10^3/uL (150-450); RED BLOOD COUNT 4.02 10^6/uL (4.30-6.10); WHITE BLOOD COUNT 7.5 10^3/uL (4.0-10.0)
[2018-09-18 12:28] LABS: ALBUMIN 3.6 GM/DL (3.2-5.2); ALT/SGPT 25 U/L (12-78); BILIRUBIN,TOTAL 0.4 MG/DL (0.2-1.0); BLOOD UREA NITROGEN 17 MG/DL (7-18); CALCIUM LEVEL 8.8 MG/DL (8.8-10.2); CARBON DIOXIDE LEVEL 28 MEQ/L (21-32); CHLORIDE LEVEL 107 MEQ/L (98-107); CHOLESTEROL LEVEL 135 MG/DL (<200); CHOLESTEROL RISK RATIO 1.875 (<5); CREATININE FOR GFR 1.09 MG/DL (0.70-1.30); GLOMERULAR FILTRATION RATE > 60.0 (>35); GLUCOSE, FASTING 99 MG/DL (70-100); HDL CHOLESTEROL 72 MG/DL (>40); LDL CHOLESTEROL 53 MG/DL (<100); MAGNESIUM LEVEL 2.1 MG/DL (1.8-2.4); NON-HDL-C 63 MG/DL; POTASSIUM SERUM 4.5 MEQ/L (3.5-5.1); SODIUM LEVEL 141 MEQ/L (136-145); TOTAL PROTEIN 6.5 GM/DL (6.4-8.2); TRIGLYCERIDES LEVEL 50 MG/DL (<150)
[2018-09-18 12:30] LABS: VITAMIN B12 LEVEL 700 PG/ML
[2018-09-18 12:31] LABS: FOLATE 16.1 NG/ML
== END ==
LOC: M SFHCPLAZ 08:54
PROVIDERS: ATTEND Internal Medicine
DX: E78.00 Pure hypercholesterolemia, unspecified (principal); Z87.19 Personal history of other diseases of the digestive system; I10 Essential (primary) hypertension; E03.9 Hypothyroidism, unspecified; F09 Unspecified mental disorder due to known physiological condition

== ENCOUNTER 2019-03-12 13:11 | Inpatient (IN) | payer MEDICARE, OTHER ==
[2019-03-12] VITALS (8 sets, daily range): BP systolic 149–182; BP diastolic 78–94
[~2019-03-12 13:11] MED LIST changes: -/AMIO20TA PO; -/FERG32TA PO; -/METO25TAB PO; -/MIRT30TA PO; -/PANT40TA PO; -ACET50TA PO; -ALLO15TA; +ALLO300T2; +AMIO1TAB PO; -ASPI1TAB PO; +ASPI81TA26 PO; +FERR1TAB6 PO; +KONS100P4 PO; +MAPA500T17 PO; -METAPKT PO; +METO1TAB87 PO; +MIRT1TAB21 PO; +PROT1TAB2 PO
[2019-03-12] MEDS ORDERED: ASPI81TA26 PO (13:57)
[2019-03-12] MEDS ORDERED: SYST1SOL4 OU (13:57)
[2019-03-12] MEDS ORDERED: ASPI81TA21 PO (13:57)
[2019-03-12 14:26] LABS: BASO % 0.1 % (0.0-1.0); EOS # 0.1 10^3/uL (0.0-0.50); EOS % 0.9 % (0.0-3.0); HEMATOCRIT 29.4 % (42.0-52.0); HEMOGLOBIN 9.5 g/dl (13.5-17.5); LYMPH # 0.6 10^3/uL (1.5-4.5); LYMPH % 9.4 % (24.0-44.0); MEAN CORPUSCULAR HEMOGLOBIN 29.7 pg (27.0-33.0); MEAN CORPUSCULAR HGB CONC 32.3 g/dl (32.0-36.5); MEAN CORPUSCULAR VOLUME 91.9 fl (80.0-96.0); MONO # 0.5 10^3/uL (0.0-0.8); MONO % 7.3 % (0.0-5.0); NEUTROPHILS # 5.5 10^3/uL (1.8-7.7); NEUTROPHILS % 81.9 % (36.0-66.0); PLATELET COUNT, AUTOMATED 194 10^3/uL (150-450); WHITE BLOOD COUNT 6.7 10^3/uL (4.0-10.0)
[2019-03-12 14:51] LABS: BLOOD UREA NITROGEN 21 MG/DL (7-18); CARBON DIOXIDE LEVEL 24 MEQ/L (21-32); CHLORIDE LEVEL 111 MEQ/L (98-107); CREATININE FOR GFR 1.02 MG/DL (0.70-1.30); GLOMERULAR FILTRATION RATE > 60.0 (>35); GLUCOSE, FASTING 175 MG/DL (70-100); POTASSIUM SERUM 3.6 MEQ/L (3.5-5.1); SODIUM LEVEL 144 MEQ/L (136-145)
[2019-03-12 14:52] LABS: CALCIUM LEVEL 8.1 MG/DL (8.8-10.2)
[2019-03-12] MEDS ORDERED: SYNT125T PO (15:42)
[2019-03-12] MEDS ORDERED: LOPE2TAB11 PO (15:42)
[2019-03-12] MEDS ORDERED: REME30TA PO (15:42)
[2019-03-12] MEDS ORDERED: NITROGLYCERIN 0.4 MG SUBL TABLET SL PRN (16:15)
--- NOTE | 2019-03-12 16:19 | HPEPDOC ---
General Date of Admission 03/12/2019 Date of Service: Mar 12, 2019 Chief Complaint The patient is a 89-year-old male Who presented to the emergency room with complaints of rectal bleeding History of Present Illness Patient is an 89-year-old male with a past medical history of CAD, A. fib (not on anticoagulation), Tachybrady syndrome s/p PM, HTN, DLP, BPH, Gout, Hx of Rectal prolapse s/p repair, Hx of rectal bleeding while on Xarelto, Anxiety / Depression, GERD who presented to the emergency room with complaints of rectal bleeding for 1 day duration. Family has noted, that he has been falling more frequently at home. Patient denies any blacking out or losing consciousness. He does report some episode of dizziness. Denies shortness of breath, chest pain, palpitations, cough, nausea, vomiting, abdominal pain or constipation. Patients family does report that he experiences chronic diarrhea. Patient denies any discomfort with urination. Has not expense any fevers or chills in the last 2 weeks. Patients family has also reported that his blood pressure adjusts different positions they have noted that when patient moves from a sitting to a standing position his blood pressure drops. He has followed with his client project coordinator as an outpatient and was advised to stop taking carvedilol. Home Medications Scheduled Allopurinol (Zyloprim) 300 Mg Tab, 150 MG PO DAILY, (Reported) Amiodarone HCl (Amiodarone HCl) 200 Mg Tab, 200 MG PO DAILY, (Reported) Aspirin (Aspirin EC) 81 Mg Tablet.dr, 81 MG PO DAILY, (Reported) Atorvastatin Calcium (Atorvastatin Calcium) 10 Mg Tab, 10 MG PO DAILY, (Reported) Fluticasone Propionate (Flonase Allergy Relief) 50 Mcg/Act Spr, 1 SPRAY NA DAILY, (Reported) Glucosam/Liang-Msm1/C/Tobin/Bosw (Osteo Bi-Flex Caplet) 1 Tab Tab, 1 TAB PO DAILY, (Reported) Levothyroxine Sodium (Synthroid) 125 Mcg Tablet, 125 MCG PO DAILY, (Reported) Mirtazapine (Remeron) 30 Mg Tablet, 30 MG PO QHS, (Reported) Multivitamins (Thera M Plus Tablet) 1 Tab Tab, 1 TAB PO DAILY, (Reported) [place]-3 Fatty Acids/Fish Oil (Fish Oil 1,000 mg Capsule) 1,000 Mg Cap, 1,000 MG PO DAILY, (Reported) Ranitidine HCl (Ranitidine HCl) 300 Mg Tab, 1 TAB PO QHS, (Reported) Sertraline HCl (Sertraline HCl) 100 Mg Tab, 100 MG PO DAILY, (Reported) Tamsulosin HCl (Flomax) 0.4 Mg Cap, 0.4 MG PO DAILY, (Reported) Scheduled PRN Loperamide HCl (Imodium A-D) 2 Mg Tablet, 2 MG PO for DIARRHEA, (Reported) Nitroglycerin (Nitrostat) 0.4 Mg Subl, 0.4 MG SL NITRO PRN for CHEST PAIN, (Reported) Propylene Glycol/Peg 400/Pf (Systane 0.3-0.4% Eye Drop) 1 Each Droperette, 1 DROP OU QID PRN for DRY EYES, (Reported) Allergies Coded Allergies: iron (Verified Allergy, Unknown, 03/12/19) Past Medical History Medical History CAD, A. fib (not on anticoagulation), Tachybrady syndrome s/p PM, HTN, DLP, BPH, Gout, Hx of Rectal prolapse s/p repair, Hx of rectal bleeding while on Xarelto, Anxiety / Depression, GERD Surgical History Left arm fracture 1970 Right inguinal hernia repair 1972 Left inguinal hernia repair 1975 Prostate biopsy 1982 Right knee replacement 2004 Bilateral cataract surgery 2006 Bilateral inguinal hernia repair with mesh 2007 Robotic rectal procedure for rectal prolapse 2010 and 2012 Pacemaker placement 2013 Coronary artery bypass grafting 2013 Right and Left carpal tunnel surgery 2014 Family History - Mother with a history of liver cancer - Father with a history of lung cancer Social History - Denies the use of tobacco or illicit drugs; patient reports that he drinks alcohol socially - Denies recent travel or sick contacts - Lives with - 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; 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 Review of Systems Other systems 10 point review of systems complete, all negative otherwise stated in HPI Vital Signs - Vitals: BP 103/55, HR 74, RR 16, Sat 95%RA, Temp 98.3F - General: Lying in bed, No acute distress, Speaking in full sentences, AAOx3 - HEENT: NC, AT, PERRLA, EOMI - CVS: RRR, +S1S2 - Lungs: Fair air entry bilaterally, No appreciable wheezing / rales / rhonchi - Abdomen: Soft, Non-distended, Non-tender - Extremities: 2+ pitting edema bilaterally, No calf tenderness - Neuro: No focal motor or sensory deficit - Skin: No visible rashes Laboratory Data Labs 24H Laboratory Tests 2 03/12/19 14:09: Immature Granulocyte % (Auto) 0.4, White Blood Count 6.7, Red Blood Count 3.20L, Hemoglobin 9.5L, Hematocrit 29.4L, Mean Corpuscular Volume 91.9, Mean Corpuscular Hemoglobin 29.7, Mean Corpuscular Hemoglobin Concent 32.3, Red Cell Distribution Width 15.4H, Platelet Count 194, Neutrophils (%) (Auto) 81.9H, Lymphocytes (%) (Auto) 9.4L, Monocytes (%) (Auto) 7.3H, Eosinophils (%) (Auto) 0.9, Basophils (%) (Auto) 0.1, Neutrophils # (Auto) 5.5, Lymphocytes # (Auto) 0.6L, Monocytes # (Auto) 0.5, Eosinophils # (Auto) 0.1, Basophils # (Auto) 0.0, Nucleated Red Blood Cells % (auto) 0.0, Anion Gap 9, Glomerular Filtration Rate > 60.0, Blood Urea Nitrogen 21H, Creatinine 1.02, Sodium Level 144, Potassium Level 3.6, Chloride Level 111H, Carbon Dioxide Level 24, Calcium Level 8.1L CBC/BMP Laboratory Tests 03/12/19 14:09 Red Blood Count 3.20 L, Mean Corpuscular Volume 91.9, Mean Corpuscular Hemoglobin 29.7, Mean Corpuscular Hemoglobin Concent 32.3, Red Cell Distribution Width 15.4 H, Neutrophils (%) (Auto) 81.9 H, Lymphocytes (%) (Auto) 9.4 L, Monocytes (%) (Auto) 7.3 H, Eosinophils (%) (Auto) 0.9, Basophils (%) (Auto) 0.1, Neutrophils # (Auto) 5.5, Lymphocytes # (Auto) 0.6 L, Monocytes # (Auto) 0.5, Eosinophils # (Auto) 0.1, Basophils # (Auto) 0.0, Calcium Level 8.1 L Plan / VTE VTE Prophylaxis Ordered?: Yes Plan Plan Painless rectal bleeding - possibly 2/2 lower GI bleeding - Presented to the emergency room with a one-day episode of painless rectal bleeding - Hx of Rectal prolapse s/p repair and rectal bleeding while on Xarelto - Patients hemoglobin baseline is approximately 11. Currently on admission is 19.5 - Will transfuse patient 2 units of PRBC; will provide Furosemide between units - Will check iron panel, B12 / Folate, reticulocyte count - Will hold ASA 81 - Will check H&H q6h - Consult general surgery for possible colonoscopy CAD - Will hold ASA 81 - c/w Atorvastatin A. fib - c/w rhythm control with Amiodarone - Currently not on full anticoagulation; will hold ASA 81 Tachy-asha syndrome s/p PM HTN / Recent history of orthostatic hypotension - s/p Carvedilol; was discontinued by Cardiology for orthostatic hypotension - Will discontinue Tamsulosin for evaluation or orthostatic vital signs DLP - c/w Atorvastatin Hypothyroidism - c/w Levothyroxine BPH - Will hold Tamsulosin Gout - c/w Allopurinol Anxiety / Depression - c/w Sertraline GERD - c/w Ranitidine DVT prophylaxis - Will start ANKIT / SURY Hodge MD Mar 12, 2019 16:19
[2019-03-12] MEDS ORDERED: FUROSEMIDE 20 MG/2 ML VIAL (J1940) IV ONE (16:30)
[2019-03-12 18:25] LABS: HEMATOCRIT 30.6 % (42.0-52.0); HEMOGLOBIN 9.7 g/dl (13.5-17.5)
[2019-03-12 18:47] LABS: PERCENT SATURATION 7.3 % (19.7-50.0)
[2019-03-12 18:55] LABS: FOLATE 20.1 NG/ML (>5.4)
[2019-03-12] MEDS: FAMOTIDINE 20 MG TAB PO SCH (22:09)
[2019-03-12] MEDS: MIRTAZAPINE 15 MG TAB PO SCH (22:09)
[2019-03-12] MEDS: CARVedilol 3.125 MG TAB PO SCH (23:49)
[2019-03-13] VITALS (12 sets, daily range): BP systolic 124–189; BP diastolic 70–102
[2019-03-13 00:42] LABS: HEMATOCRIT 37.1 % (42.0-52.0)
[2019-03-13 00:45] LABS: HEMOGLOBIN 12.3 g/dl (13.5-17.5)
[2019-03-13 06:09] LABS: BASO % 0.1 % (0.0-1.0); EOS # 0.1 10^3/uL (0.0-0.50); EOS % 1.5 % (0.0-3.0); HEMATOCRIT 37.6 % (42.0-52.0); HEMOGLOBIN 12.1 g/dl (13.5-17.5); LYMPH # 0.5 10^3/uL (1.5-4.5); LYMPH % 6.1 % (24.0-44.0); MEAN CORPUSCULAR HEMOGLOBIN 28.5 pg (27.0-33.0); MEAN CORPUSCULAR HGB CONC 32.2 g/dl (32.0-36.5); MEAN CORPUSCULAR VOLUME 88.5 fl (80.0-96.0); MONO # 0.6 10^3/uL (0.0-0.8); MONO % 7.3 % (0.0-5.0); NEUTROPHILS # 6.8 10^3/uL (1.8-7.7); NEUTROPHILS % 84.5 % (36.0-66.0); PLATELET COUNT, AUTOMATED 201 10^3/uL (150-450); RED BLOOD COUNT 4.25 10^6/uL (4.30-6.10); WHITE BLOOD COUNT 8.1 10^3/uL (4.0-10.0)
[2019-03-13] MEDS: LEVOTHYROXINE 125MCG TABLET (0.125MG) PO SCH (06:19)
[2019-03-13 06:24] LABS: BLOOD UREA NITROGEN 17 MG/DL (7-18); CALCIUM LEVEL 8.6 MG/DL (8.8-10.2); CARBON DIOXIDE LEVEL 27 MEQ/L (21-32); CHLORIDE LEVEL 109 MEQ/L (98-107); CREATININE FOR GFR 0.92 MG/DL (0.70-1.30); GLOMERULAR FILTRATION RATE > 60.0 (>35); GLUCOSE, FASTING 101 MG/DL (70-100); MAGNESIUM LEVEL 1.9 MG/DL (1.8-2.4); POTASSIUM SERUM 3.6 MEQ/L (3.5-5.1); SODIUM LEVEL 144 MEQ/L (136-145)
[2019-03-13] MEDS ORDERED: FUROSEMIDE 20 MG/2 ML VIAL (J1940) IV ONE (07:15)
[2019-03-13] MEDS: CARVedilol 3.125 MG TAB PO SCH ×2 (08:22→20:18)
[2019-03-13] MEDS: AMIODARONE 200 MG TAB (PACERONE) PO SCH (08:22)
[2019-03-13] MEDS: ATORVASTATIN 10 MG TAB PO SCH (08:23)
[2019-03-13] MEDS: SERTRALINE 100 MG TAB PO SCH (08:23)
[2019-03-13] MEDS: ALLOPURINOL 300 MG TAB PO SCH (08:23)
--- NOTE | 2019-03-13 10:35 | IPNPDOC ---
Text Note Date of Service The patient was seen on 03/13/19. NOTE No acute events overnight. Denies any more blood or BMs since admission. He has only had the bleeding for one day prior to admission. Denies any nausea, emesis, abd pains, SOB, or weakness. VSSAF NAD abd - soft, nt, nd labs - hgb stable, labs below A) 89y/o male with one day history of rectal bleeding likely due to diverticular bleed vs. hemorrhoids. P) reg diet monitor hgb d/c after a regular BM Ang Maikel DO VS,Fishbone, I+O VS, Fishbone, I+O Laboratory Tests 03/12/19 14:09 Red Blood Count 3.20 L, Mean Corpuscular Volume 91.9, Mean Corpuscular Hemoglobin 29.7, Mean Corpuscular Hemoglobin Concent 32.3, Red Cell Distribution Width 15.4 H, Neutrophils (%) (Auto) 81.9 H, Lymphocytes (%) (Auto) 9.4 L, Monocytes (%) (Auto) 7.3 H, Eosinophils (%) (Auto) 0.9, Basophils (%) (Auto) 0.1, Neutrophils # (Auto) 5.5, Lymphocytes # (Auto) 0.6 L, Monocytes # (Auto) 0.5, Eosinophils # (Auto) 0.1, Basophils # (Auto) 0.0, Calcium Level 8.1 L 03/12/19 18:07 03/13/19 00:31 03/13/19 05:43 Red Blood Count 4.25 L, Mean Corpuscular Volume 88.5, Mean Corpuscular Hemoglobin 28.5, Mean Corpuscular Hemoglobin Concent 32.2, Red Cell Distribution Width 16.0 H, Neutrophils (%) (Auto) 84.5 H, Lymphocytes (%) (Auto) 6.1 L, Monocytes (%) (Auto) 7.3 H, Eosinophils (%) (Auto) 1.5, Basophils (%) (Auto) 0.1, Neutrophils # (Auto) 6.8, Lymphocytes # (Auto) 0.5 L, Monocytes # (Auto) 0.6, Eosinophils # (Auto) 0.1, Basophils # (Auto) 0.0, Calcium Level 8.6 L Vital Signs Date Time Temp Pulse Resp B/P (MAP) Pulse Ox O2 Delivery O2 Flow Rate FiO2 03/13/19 08:22 104 170/96 03/13/19 08:00 96.2 18 95 03/12/19 14:45 Room Air I&O- Last 24 Hours up to 6 AM 03/13/19 06:00 Intake Total 983 ml Output Total 3050 ml Balance -2067 ml GRISELDA GONZALEZ DO Mar 13, 2019 10:35
[2019-03-13] MEDS ORDERED: SLF 3 ML SYR IV PRN (10:45)
--- NOTE | 2019-03-13 11:08 | IPNPDOC ---
Text Note Date of Service The patient was seen on 03/13/19. NOTE Subjective: Patient is an 89-year-old male with a past medical history of CAD, A. fib (not on anticoagulation), Tachybrady syndrome s/p PM, HTN, DLP, BPH, Gout, Hx of Rectal prolapse s/p repair, Hx of rectal bleeding while on Xarelto, Anxiety / Depression, GERD who presented to the emergency room with complaints of rectal bleeding for 1 day duration. Family has noted, that he has been falling more frequently at home. Patient denies any blacking out or losing consciousness. He does report some episode of dizziness. Patient was admitted to hospital service for further evaluation and treatment Patient was seen and examined at the bedside. . Currently, patient reports that he has not had a bowel movement since admission. Patient denies nausea, vom iting, abdominal pain or chest pain, shortness of breath or palpitations. Objective: Vitals (See below) General: Lying in bed, no acute distress, comfortable, AAOx3 HEENT: NC, AT CVS: RRR, +S1S2 Lungs: Fair air entry b/l, auscultation does reveal bilateral rales, no rhonchi or wheezing Abdomen: Soft, ND, nontender Extremities: 2+ pitting edema bilaterally, - Calf tenderness Assessment and plan: Painless rectal bleeding / Symptomatic anemia - possibly 2/2 lower GI bleeding - Presented to the ER with a one-day episode of painless rectal bleeding - Hx of Rectal prolapse s/p repair and rectal bleeding while on Xarelto - Patients hemoglobin baseline is approximately 11, on admission is 9.5 - has improved - s/p 2 units of PRBC - Hg improved appropriately - Iron panel, B12 / Folate, reticulocyte count - noted - Will restart ASA 81 - Will start Ferrous sulfate - General surgery on consultation CAD - Will hold ASA 81 - c/w Atorvastatin A. fib - c/w rhythm control with Amiodarone - Currently not on full anticoagulation; will hold ASA 81 Tachy-asha syndrome s/p PM HTN / Recent history of orthostatic hypotension / Bilateral LE edema - Will check ECHO - Will c/w dosing of Furosemide - c/w Carvedilol - Will discontinue Tamsulosin for evaluation or orthostatic vital signs DLP - c/w Atorvastatin Hypothyroidism - c/w Levothyroxine BPH - Will hold Tamsulosin Gout - c/w Allopurinol Anxiety / Depression - c/w Sertraline GERD - c/w Ranitidine DVT prophylaxis - c/w start ANKIT / Sequentials Disposition: - Will check orthostatic vital signs - Will start physical therapy VS,Fishbone, I+O VS, Fishbone, I+O Laboratory Tests 03/12/19 14:09 Red Blood Count 3.20 L, Mean Corpuscular Volume 91.9, Mean Corpuscular Hemoglobin 29.7, Mean Corpuscular Hemoglobin Concent 32.3, Red Cell Distribution Width 15.4 H, Neutrophils (%) (Auto) 81.9 H, Lymphocytes (%) (Auto) 9.4 L, Monocytes (%) (Auto) 7.3 H, Eosinophils (%) (Auto) 0.9, Basophils (%) (Auto) 0.1, Neutrophils # (Auto) 5.5, Lymphocytes # (Auto) 0.6 L, Monocytes # (Auto) 0.5, Eosinophils # (Auto) 0.1, Basophils # (Auto) 0.0, Calcium Level 8.1 L 03/12/19 18:07 03/13/19 00:31 03/13/19 05:43 Red Blood Count 4.25 L, Mean Corpuscular Volume 88.5, Mean Corpuscular Hemoglo bin 28.5, Mean Corpuscular Hemoglobin Concent 32.2, Red Cell Distribution Width 16.0 H, Neutrophils (%) (Auto) 84.5 H, Lymphocytes (%) (Auto) 6.1 L, Monocytes (%) (Auto) 7.3 H, Eosinophils (%) (Auto) 1.5, Basophils (%) (Auto) 0.1, Neutrophils # (Auto) 6.8, Lymphocytes # (Auto) 0.5 L, Monocytes # (Auto) 0.6, Eosinophils # (Auto) 0.1, Basophils # (Auto) 0.0, Calcium Level 8.6 L Vital Signs Date Time Temp Pulse Resp B/P (MAP) Pulse Ox O2 Delivery O2 Flow Rate FiO2 03/13/19 08:22 104 170/96 03/13/19 08:00 96.2 18 95 03/12/19 14:45 Room Air I&O- Last 24 Hours up to 6 AM 7/4/19 06:00 Intake Total 983 ml Output Total 3050 ml Balance -2067 ml SURY COOK MD Mar 13, 2019 11:08
[2019-03-13] MEDS: SLF 3 ML SYR IV SCH ×2 (11:23→20:19)
[2019-03-13] MEDS: FERROUS SULFATE 325MG TAB PO SCH ×2 (11:23→20:18)
[2019-03-13] MEDS: ASPIRIN 81 MG ENTERIC TAB PO SCH (11:23)
[2019-03-13 12:13] LABS: HEMATOCRIT 41.8 % (42.0-52.0); HEMOGLOBIN 13.4 g/dl (13.5-17.5)
--- NOTE | 2019-03-13 14:47 | ECHO ---
TWO-DIMENSIONAL ECHOCARDIOGRAM REPORT DATE: 03/13/2019 REFERRING PHYSICIAN: Dr. Scott Rice INDICATION: Edema. HEIGHT: 175 cm. WEIGHT: 72 kg. MEASUREMENTS: IVS 1.5 LV 4.6 LVPW 1.3 LA 5.1 Aorta 3.1 RV 4.0 IVC 2.0 Mitral E wave velocity 72 E prime septal 4.5 E prime lateral 9.3 LAUREN 44 FINDINGS: This study is of fair technical quality with rather limited visualization. The patient is in sinus rhythm with wide QRS complex and first degree AV block. Left ventricle is of normal size. Mild to moderate left ventricular hypertrophy is noted. There is a septal wall motion abnormality that I suspect is due to underlying conductive system disease. There is severe hypokinesis to distal septum apex and distal anterior wall. Overall left ventricular ejection fraction (LVEF) was computer calculated as 58%, I would estimate it in 50-55% range. Right ventricle appears grossly normal. Left atrium is severely enlarged, right atrium was poorly visualized. Aortic valve is heavily sclerotic but the visualization was limited and I cannot comment much on the structure. Based on available views I do not estimate worse than mild aortic stenosis. Mitral and tricuspid valves appear normal. Pulmonic valve was not well seen. No pericardial effusion is noted. Inferior vena cava is mildly enlarged. Aortic root is normal. Aortic arch and abdominal aorta were not well seen. Doppler interrogation of aortic valve reveals no insufficiency and mild stenosis with mean gradient only 7 mmHg. There is mild mitral and mild tricuspid insufficiency. Calculated pulmonary artery pressure is in 40s corresponding to moderate pulmonary hypertension. Evaluation of diastolic function is inconclusive because there is fusion of E and A-wave on mitral inflow. Tissue Doppler velocities are markedly reduced indicative of likely at least moderate diastolic dysfunction. CONCLUSIONS: 1. Study is of fair technical quality. 2. Normal left ventricle (LV) size with mild to moderate left ventricular hypertrophy, distal septal anterior and apical wall motion abnormality and overall mildly reduced left ventricular systolic function. 3. Likely at least grade 2 diastolic dysfunction. 4. Aortic sclerosis resulting in mild stenosis. 5. Mild mitral and tricuspid insufficiency. 6. Elevated central venous pressure and at least moderate pulmonary hypertension. COMMENT: Subacute bacterial endocarditis (SBE) prophylaxis is not recommended. Compared to echocardiogram from June 2018 the wall motion abnormality was not appreciated on prior study.
[2019-03-13] MEDS: FUROSEMIDE 20 MG/2 ML VIAL (J1940) IV SCH (16:26)
[2019-03-13 18:46] LABS: HEMATOCRIT 41.5 % (42.0-52.0); HEMOGLOBIN 13.4 g/dl (13.5-17.5)
[2019-03-13] MEDS: FAMOTIDINE 20 MG TAB PO SCH (20:18)
[2019-03-13] MEDS: MIRTAZAPINE 15 MG TAB PO SCH (20:19)
[2019-03-14 00:12] LABS: HEMATOCRIT 41.7 % (42.0-52.0); HEMOGLOBIN 13.7 g/dl (13.5-17.5)
[2019-03-14 04:00] VITALS: BP 159/92
[2019-03-14] MEDS: LEVOTHYROXINE 125MCG TABLET (0.125MG) PO SCH (05:16)
[2019-03-14] MEDS: SLF 3 ML SYR IV SCH ×2 (05:17→14:00)
[2019-03-14 05:19] LABS: BASO % 0.1 % (0.0-1.0); EOS # 0.1 10^3/uL (0.0-0.50); HEMATOCRIT 39.7 % (42.0-52.0); HEMOGLOBIN 12.7 g/dl (13.5-17.5); LYMPH # 0.7 10^3/uL (1.5-4.5); LYMPH % 8.5 % (24.0-44.0); MEAN CORPUSCULAR HEMOGLOBIN 29.1 pg (27.0-33.0); MEAN CORPUSCULAR VOLUME 90.8 fl (80.0-96.0); MONO # 0.6 10^3/uL (0.0-0.8); NEUTROPHILS # 6.3 10^3/uL (1.8-7.7); NEUTROPHILS % 82.1 % (36.0-66.0); PLATELET COUNT, AUTOMATED 212 10^3/uL (150-450); RED BLOOD COUNT 4.37 10^6/uL (4.30-6.10); WHITE BLOOD COUNT 7.7 10^3/uL (4.0-10.0)
[2019-03-14 05:44] LABS: BLOOD UREA NITROGEN 12 MG/DL (7-18); CALCIUM LEVEL 8.4 MG/DL (8.8-10.2); CARBON DIOXIDE LEVEL 30 MEQ/L (21-32); CHLORIDE LEVEL 105 MEQ/L (98-107); CREATININE FOR GFR 0.82 MG/DL (0.70-1.30); GLOMERULAR FILTRATION RATE > 60.0 (>35); GLUCOSE, FASTING 103 MG/DL (70-100); MAGNESIUM LEVEL 1.9 MG/DL (1.8-2.4); POTASSIUM SERUM 3.3 MEQ/L (3.5-5.1); SODIUM LEVEL 142 MEQ/L (136-145)
[2019-03-14] MEDS ORDERED: POTASSIUM CHLORIDE 10 MEQ SR TABLET PO ONE (07:30)
[2019-03-14 08:00] VITALS: BP 164/88
[2019-03-14] MEDS: FUROSEMIDE 20 MG/2 ML VIAL (J1940) IV SCH (09:17)
[2019-03-14] MEDS: ALLOPURINOL 300 MG TAB PO SCH (09:18)
[2019-03-14] MEDS: AMIODARONE 200 MG TAB (PACERONE) PO SCH (09:18)
[2019-03-14] MEDS: SERTRALINE 100 MG TAB PO SCH (09:18)
[2019-03-14] MEDS: ATORVASTATIN 10 MG TAB PO SCH (09:18)
[2019-03-14] MEDS: FERROUS SULFATE 325MG TAB PO SCH (09:18)
[2019-03-14] MEDS: ASPIRIN 81 MG ENTERIC TAB PO SCH (09:18)
[2019-03-14 09:19] VITALS: BP 164/88
[2019-03-14] MEDS: CARVedilol 3.125 MG TAB PO SCH (09:19)
[2019-03-14] MEDS ORDERED: FURO20TA2 PO (09:39)
[2019-03-14] MEDS ORDERED: CARV3.12 PO (09:39)
[2019-03-14] MEDS ORDERED: FERR325T18 PO (09:39)
--- NOTE | 2019-03-14 10:54 | DS.PDOC ---
Discharge Summary General Date of Admission Mar 12, 2019 at 16:09 Date of Discharge 03/14/2019 Discharge Summary PROCEDURES PERFORMED DURING STAY: [None]. ADMITTING DIAGNOSES / DISCHARGE DIAGNOSES: Painless rectal bleeding / Symptomatic anemia / Acute blood loss anemia - possibly 2/2 lower GI bleeding CAD A. fib Tachy-asha syndrome s/p PM HTN / Recent history of orthostatic hypotension / Bilateral LE edema DLP Hypothyroidism BPH Gout Anxiety / Depression GERD DVT prophylaxis COMPLICATIONS/CHIEF COMPLAINT: Shortness of breath / Rectal bleed HISTORY OF PRESENT ILLNESS: Patient is an 89-year-old male with a past medical history of CAD, A. fib (not on anticoagulation), Tachybrady syndrome s/p PM, HTN, DLP, BPH, Gout, Hx of Rectal prolapse s/p repair, Hx of rectal bleeding while on Xarelto, Anxiety / Depression, GERD who presented to the emergency room with complaints of rectal bleeding for 1 day duration. Family has noted, that he has been falling more frequently at home. Patient denies any blacking out or losing consciousness. He does report some episode of dizziness. Patient was admitted to hospital service for further evaluation and treatment HOSPITAL COURSE: Painless rectal bleeding / Symptomatic anemia / Acute blood loss anemia - possibly 2/2 lower GI bleeding - Presented to the ER with a one-day episode of painless rectal bleeding - Hx of Rectal prolapse s/p repair and rectal bleeding while on Xarelto - Patient has not experienced any rectal bleeding and has regular bowel movements - Patients hemoglobin baseline is approximately 11, on admission is 9.5 - has improved appropriately - s/p 2 units of PRBC - Hg improved appropriately - Iron panel, B12 / Folate, reticulocyte count - noted - c/w ASA 81 and Ferrous sulfate - General surgery on consultation - Has cleared physical therapy for discharge home CAD - Will hold ASA 81 - c/w Atorvastatin A. fib - c/w rhythm control with Amiodarone - Currently not on full anticoagulation; will hold ASA 81 Tachy-asha syndrome s/p PM HTN / Recent history of orthostatic hypotension / Bilateral LE edema - ECHO 03/13/2019: G2DD, EF of 50-55%, Mild , Mild DC & TI, Elevated CVP, Moderate Pulmonary HTN - Will c/w Furosemide for 5 days - c/w Carvedilol - Will discontinue Tamsulosin for evaluation or orthostatic vital signs - Will have outpatient follow up with Dr. Rasmussen DLP - c/w Atorvastatin Hypothyroidism - c/w Levothyroxine BPH - Will hold Tamsulosin Gout - c/w Allopurinol Anxiety / Depression - c/w Sertraline GERD - c/w Ranitidine DVT prophylaxis - c/w start ANKIT / Sequentials DISCHARGE MEDICATIONS: Please see below. ALLERGIES: Please see below. PHYSICAL EXAMINATION ON DISCHARGE: Vitals (See below) General: Lying in bed, no acute distress, comfortable, AAOx3 HEENT: NC, AT CVS: RRR, +S1S2 Lungs: Fair air entry b/l, no appreciable wheezing, rhonchi or rales Abdomen: Soft, nondistended and nontender Extremities: 1+ pitting edema bilaterally, - Calf tenderness LABORATORY DATA: Please see below. ACTIVITY: [As tolerated]. DISCHARGE PLAN: Follow up with Dr. Goyo Adams, Dr. Rasmussen and Dr. Ko within 7 days. Remain compliant with treatment plan and medications Return to the ER if you experience any problems DISPOSITION: Home with services DISCHARGE CONDITION: [Stable]. TIME SPENT ON DISCHARGE: 40 minutes Vital Signs/I&Os Vital Signs Date Time Temp Pulse Resp B/P (MAP) Pulse Ox O2 Delivery O2 Flow Rate FiO2 03/14/19 09:19 82 164/88 03/14/19 08:00 96.8 18 96 03/12/19 14:45 Room Air I&O- Last 24 Hours up to 6 AM 03/14/19 06:00 Intake Total 1720 ml Output Total 1600 ml Balance 120 ml Laboratory Data Labs 24H Laboratory Tests 2 03/14/19 05:01: Immature Granulocyte % (Auto) 0.3, White Blood Count 7.7, Red Blood Count 4.37, Hemoglobin 12.7L, Hematocrit 39.7L, Mean Corpuscular Volume 90.8, Mean Dany uscular Hemoglobin 29.1, Mean Corpuscular Hemoglobin Concent 32.0, Red Cell Distribution Width 15.8H, Platelet Count 212, Neutrophils (%) (Auto) 82.1H, Lymphocytes (%) (Auto) 8.5L, Monocytes (%) (Auto) 8.0H, Eosinophils (%) (Auto) 1.0, Basophils (%) (Auto) 0.1, Neutrophils # (Auto) 6.3, Lymphocytes # (Auto) 0.7L, Monocytes # (Auto) 0.6, Eosinophils # (Auto) 0.1, Basophils # (Auto) 0.0, Nucleated Red Blood Cells % (auto) 0.0, Anion Gap 7L, Glomerular Filtration Rate > 60.0, Blood Urea Nitrogen 12, Creatinine 0.82, Sodium Level 142, Potassium Level 3.3L, Chloride Level 105, Carbon Dioxide Level 30, Calcium Level 8.4L, Magnesium Level 1.9 CBC/BMP Laboratory Tests 03/13/19 12:04 03/13/19 18:20 03/14/19 00:06 03/14/19 05:01 Red Blood Count 4.37, Mean Corpuscular Volume 90.8, Mean Corpuscular Hemoglobin 29.1, Mean Corpuscular Hemoglobin Concent 32.0, Red Cell Distribution Width 15.8 H, Neutrophils (%) (Auto) 82.1 H, Lymphocytes (%) (Auto) 8.5 L, Monocytes (%) (Auto) 8.0 H, Eosinophils (%) (Auto) 1.0, Basophils (%) (Auto) 0.1, Neutrophils # (Auto) 6.3, Lymphocytes # (Auto) 0.7 L, Monocytes # (Auto) 0.6, Eosinophils # (Auto) 0.1, Basophils # (Auto) 0.0, Calcium Level 8.4 L Discharge Medications Scheduled Allopurinol (Zyloprim) 300 Mg Tab, 150 MG PO DAILY, (Reported) Amiodarone HCl (Amiodarone HCl) 200 Mg Tab, 200 MG PO DAILY, (Reported) Aspirin (Aspirin EC) 81 Mg Tablet.dr, 81 MG PO DAILY, (Reported) Atorvastatin Calcium (Atorvastatin Calcium) 10 Mg Tab, 10 MG PO DAILY, (Reported) Carvedilol (Carvedilol) 3.125 Mg Tablet, 3.125 MG PO BID Ferrous Sulfate (Ferrous Sulfate) 325 Mg Tablet, 325 MG PO BID Furosemide (Furosemide) 20 Mg Tablet, 1 TAB PO DAILY Levothyroxine Sodium (Synthroid) 125 Mcg Tablet, 125 MCG PO DAILY, (Reported) Mirtazapine (Remeron) 30 Mg Tablet, 30 MG PO QHS, (Reported) Multivitamins (Thera M Plus Tablet) 1 Tab Tab, 1 TAB PO DAILY, (Reported) [place]-3 Fatty Acids/Fish Oil (Fish Oil 1,000 mg Capsule) 1,000 Mg Cap, 2,000 MG PO DAILY, (Reported) Ranitidine HCl (Ranitidine HCl) 300 Mg Tab, 1 TAB PO QHS, (Reported) Sertraline HCl (Sertraline HCl) 100 Mg Tab, 100 MG PO DAILY, (Reported) Scheduled PRN Fluticasone Propionate (Flonase Allergy Relief) 50 Mcg/Act Spr, 1 SPRAY NA DAILY PRN for CONGESTION, (Reported) Loperamide HCl (Imodium A-D) 2 Mg Tablet, 2 MG PO for DIARRHEA, (Reported) Nitroglycerin (Nitrostat) 0.4 Mg Subl, 0.4 MG SL NITRO PRN for CHEST PAIN, (Reported) Propylene Glycol/Peg 400/Pf (Systane 0.3-0.4% Eye Drop) 1 Each Droperette, 1 DROP OU QID PRN for DRY EYES, (Reported) Allergies Coded Allergies: No Known Allergies (Verified Allergy, Unknown, 03/12/19) SURY COOK MD Mar 14, 2019 10:54
[2019-03-14 12:00] VITALS: BP 110/70
--- NOTE | 2019-03-14 13:48 | REP ---
Clinical: Altered mental status and confusion Comparison: 06/24/2013 . Findings: Age-related atrophy and microvascular ischemic changes are appreciated. The ventricles and sulci are symmetric. Peck-white differentiation is maintained. There is no evidence for acute intracranial hemorrhage, mass/mass effect, pathology or infarction. No extra-axial fluid collection. Calvarium is intact. Paranasal sinuses and mastoid air cells are clear. Impression: Age related atrophy and microvascular ischemic changes. No acute intracranial hemorrhage, infarction, or mass/mass effect. Electronically Signed by Isidro Reyes MD 03/14/2019 01:40 P
--- NOTE | 2019-03-18 09:31 | CR ---
DATE OF CONSULTATION: 03/12/2019 CHIEF COMPLAINT: Rectal bleeding. HISTORY OF PRESENT ILLNESS: Who presents to the ER with a 1-day history of bright red rectal bleeding. His main complaint at the time was weakness. In the emergency room, he had a hemoglobin that was 6.7 so he was transfused and admitted to medicine service and I was consulted. He denies any current blood in his stool. He only had a couple episodes of bright red bleeding prior to entering the emergency room and no new symptoms since. No nausea or vomiting. No fevers or chills, recent change in diet. No recent colonoscopy. He is able to tell me exactly when his last one was but he does feel like he has had one before with polyps. No known family history of colon cancer or diseases. No known history of hemorrhoid problems. He has had the blood in his stool but no throwing up any blood or coughing up any blood and no recent bloody noses. Also denies acid reflux or heartburn. No changes in medication and no recent illnesses. PAST MEDICAL HISTORY: Coronary artery disease. Atrial fibrillation. Tachybrady syndrome. Hypertension. Dyslipidemia. Benign prostatic hypertrophy (BPH). Gout. Rectal prolapse status post repair. Anxiety. Depression. Gastroesophageal reflux disease (GERD). PAST SURGICAL HISTORY: Left arm fracture repair. Bilateral inguinal hernias repaired. Prostate biopsies. Right knee replacement. Cataract surgery. Robotic rectal prolapse surgery. Pacemaker placement. Coronary artery bypass graft (CABG). Right and left carpal tunnel. FAMILY HISTORY: Noncontributory. SOCIAL HISTORY: Denies drug, alcohol, tobacco abuse. REVIEW OF SYSTEMS: Pertinent positives and negatives as stated in history of present illness. PHYSICAL EXAMINATION: General: Patient is awake and alert, oriented times three. Vitals: Temperature 97.2, pulse 80, respirations 17, blood pressure 149/78, pulse ox 96. HEENT: Pupils equal, round, react to light and accommodation. Heart: S1, S2, irregularly irregular rate and rhythm. Lungs: Clear to auscultation bilaterally. Abdomen: Soft, nontender, nondistended. Extremities: No clubbing, cyanosis or edema. LABORATORY DATA: Hemoglobin 9.5, hematocrit 29.4, platelets 194. GYNECOLOGIC HISTORY: Potassium 3.6, creatinine 1.02. ASSESSMENT/PLAN: The patient is an 89-year-old male with lower GI bleed and weakness. This is likely secondary to diverticular bleed versus internal hemorrhoids. However, all of the bleeding has ceased at this point. He was slightly weak on admission. He is feeling comfortable now after receiving some IV fluids and he has already been started receiving some blood as well. Recommend continue with transfusions and monitor him overnight, on a clear liquid diet and evaluate for any further bowel movements. If he has a couple bowel movements that are nonbloody, he can be discharged home. Otherwise as long as his hemoglobin remains stable for the next 24-48 hours, he can be discharged and can followup outpatient as needed if the bleeding returns. No indication for urgent endoscopy at this time.
== END 2019-03-14 16:17 | disposition home health service (06) | DRG 378 ==
LOC: EDBD 13:11 → M ED 13:11 → M ED INP 16:09 → M PCU 18:44
PROVIDERS: ADMIT Internal Medicine; ATTEND Internal Medicine
PROC: 30233N1 Transfusion of Nonautologous Red Blood Cells into Peripheral Vein, Percutaneous Approach (ICD-10-PCS; principal; 2019-03-12)
DX: K57.91 Diverticulosis of intestine, part unspecified, without perforation or abscess with bleeding (principal); D62 Acute posthemorrhagic anemia; I25.10 Atherosclerotic heart disease of native coronary artery without angina pectoris; I48.91 Unspecified atrial fibrillation; I10 Essential (primary) hypertension; E78.5 Hyperlipidemia, unspecified; N40.0 Benign prostatic hyperplasia without lower urinary tract symptoms; M10.9 Gout, unspecified; F41.9 Anxiety disorder, unspecified; F32.9 Major depressive disorder, single episode, unspecified; Z95.0 Presence of cardiac pacemaker; Z79.82 Long term (current) use of aspirin; Z88.8 Allergy status to other drugs, medicaments and biological substances; Z96.651 Presence of right artificial knee joint; Z98.41 Cataract extraction status, right eye; Z98.42 Cataract extraction status, left eye; Z95.1 Presence of aortocoronary bypass graft

== ENCOUNTER → 2019-04-02 | Outpatient (REF) | payer MEDICARE, OTHER ==
[~2019-04-02] MED LIST changes: +ASPI81TA21 PO; +CARV3.12 PO; +FERR325T18 PO; +FURO20TA2 PO; +LOPE2TAB11 PO; +REME30TA PO; +SYNT125T PO; +SYST1SOL4 OU
== END ==
LOC: M SFHCPLAZ 10:25
PROVIDERS: ATTEND Internal Medicine
DX: Z53.9 Procedure and treatment not carried out, unspecified reason (principal); J30.9 Allergic rhinitis, unspecified; Z79.899 Other long term (current) drug therapy; I11.9 Hypertensive heart disease without heart failure; E03.9 Hypothyroidism, unspecified; M10.9 Gout, unspecified

== ENCOUNTER → 2019-12-17 | Outpatient (REF) | payer MEDICARE, OTHER ==
[~2019-12-17] MED LIST changes: -LOPE2TAB11 PO; +LOPE2TAB12 PO
[2019-12-17 10:11] LABS: BASO % 0.3 % (0.0-1.0); EOS # 0.2 10^3/uL (0.0-0.5); EOS % 2.1 % (0.0-3.0); HEMATOCRIT 35.3 % (42.0-52.0); HEMOGLOBIN 11.3 g/dl (13.5-17.5); LYMPH # 0.7 10^3/uL (1.5-5.0); LYMPH % 9.8 % (24.0-44.0); MEAN CORPUSCULAR VOLUME 90.5 fl (80.0-96.0); MONO # 0.6 10^3/uL (0.0-0.8); NEUTROPHILS % 79.4 % (36.0-66.0); PLATELET COUNT, AUTOMATED 205 10^3/uL (150-450); WHITE BLOOD COUNT 7.5 10^3/uL (4.0-10.0)
[2019-12-17 10:41] LABS: ALBUMIN 3.2 GM/DL (3.2-5.2); ALT/SGPT 19 U/L (12-78); BILIRUBIN,TOTAL 0.3 MG/DL (0.2-1.0); BLOOD UREA NITROGEN 24 MG/DL (7-18); CALCIUM LEVEL 8.6 MG/DL (8.8-10.2); CARBON DIOXIDE LEVEL 28 MEQ/L (21-32); CHLORIDE LEVEL 107 MEQ/L (98-107); CREATININE FOR GFR 1.04 MG/DL (0.70-1.30); GLOMERULAR FILTRATION RATE > 60.0 (>35); GLUCOSE, FASTING 93 MG/DL (70-100); MAGNESIUM LEVEL 2.4 MG/DL (1.8-2.4); POTASSIUM SERUM 4.4 MEQ/L (3.5-5.1); SODIUM LEVEL 141 MEQ/L (136-145); TOTAL PROTEIN 6.3 GM/DL (6.4-8.2); URIC ACID 4.4 MG/DL (3.5-7.2)
== END ==
PROVIDERS: ATTEND Internal Medicine
DX: I11.9 Hypertensive heart disease without heart failure (principal); E03.9 Hypothyroidism, unspecified; M10.9 Gout, unspecified; J30.9 Allergic rhinitis, unspecified

== ENCOUNTER → 2020-04-12 | Outpatient (REF) | payer MEDICARE, OTHER, MEDICAID ==
[~2020-04-12] MED LIST changes: -AMIO200T; -AMIO200T PO; +AMIO200T3; +AMIO200T3 PO; +FAMO20TA PO; +PANT40TA29 PO; -PANT40TA3 PO
[2020-06-23 13:13] LABS: HEMATOCRIT 36.3 % (42.0-52.0); HEMOGLOBIN 11.3 g/dl (13.5-17.5); MEAN CORPUSCULAR HEMOGLOBIN 28.6 pg (27.0-33.0); MEAN CORPUSCULAR HGB CONC 31.1 g/dl (32.0-36.5); MEAN CORPUSCULAR VOLUME 91.9 fl (80.0-96.0); PLATELET COUNT, AUTOMATED 141 10^3/uL (150-450); RED BLOOD COUNT 3.95 10^6/uL (4.30-6.10); WHITE BLOOD COUNT 7.4 10^3/uL (4.0-10.0)
[2020-07-06 09:31] LABS: ALBUMIN 3.3 GM/DL (3.2-5.2); ALT/SGPT 18 U/L (12-78); BILIRUBIN,TOTAL 0.3 MG/DL (0.2-1.0); BLOOD UREA NITROGEN 24 MG/DL (7-18); CARBON DIOXIDE LEVEL 32 MEQ/L (21-32); CHLORIDE LEVEL 107 MEQ/L (98-107); CREATININE FOR GFR 1.04 MG/DL (0.70-1.30); GLOMERULAR FILTRATION RATE > 60.0 (>35); GLUCOSE, FASTING 88 MG/DL (70-100); MAGNESIUM LEVEL 2.2 MG/DL (1.8-2.4); POTASSIUM SERUM 4.3 MEQ/L (3.5-5.1); SODIUM LEVEL 143 MEQ/L (136-145); TOTAL PROTEIN 6.4 GM/DL (6.4-8.2)
== END ==
PROVIDERS: ATTEND Internal Medicine
DX: I11.9 Hypertensive heart disease without heart failure (principal); Z79.899 Other long term (current) drug therapy

== ENCOUNTER → 2020-05-09 | Outpatient (CLI) | payer MEDICARE, OTHER, MEDICAID | LOC: M LABSMTC 11:18 | PROVIDERS: ATTEND Anesthesiology | DX: Z01.812 Encounter for preprocedural laboratory examination (principal); Z20.828 Contact with and (suspected) exposure to other viral communicable diseases | CPT/HCPCS: C9803; U0003 ==

== ENCOUNTER 2020-05-14 06:14 | Day surgery (SDC) | payer MEDICARE, OTHER, MEDICAID ==
[~2020-05-14] VITALS: Ht 160 cm; Wt 73.5 kg
[2020-05-14] MEDS ORDERED: ceFAZolin SOD 2 GM in IV 1 EA IV ONE (06:30)
[2020-05-14] MEDS ORDERED: MIDAZOLAM INJ 2MG/2ML VIAL (J2250 PER 1MG) As Ordered ONE (06:57)
[2020-05-14] MEDS ORDERED: fentaNYL 100 MCG/2 ML INJECTION (J3010) As Ordered ONE (06:58)
[2020-05-14] MEDS ORDERED: propofoL 500 MG/50 ML VIAL As Ordered ONE (06:58)
[2020-05-14] MEDS ORDERED: dexameTHASONE 4 MG/ML 1ML VIAL (J1100 PER 1MG) As Ordered ONE (07:14)
[2020-05-14] MEDS ORDERED: BUPIVACAINE HCL 0.5% 10ML VIAL As Ordered ONE (07:14)
[2020-05-14] MEDS ORDERED: LIDOCAINE 2% MDV 20ML VIAL As Ordered ONE (07:15)
[2020-05-14] MEDS ORDERED: LIDOCAINE 2% 100MG/5ML SDV (FOR ANES.) As Ordered ONE (07:15)
[2020-05-14] MEDS ORDERED: NEOSPORIN GU IRRIG 20 ML VIAL As Ordered ONE (07:48)
[2020-05-14] MEDS ORDERED: BACITRACIN PWD 50,000 UNITS VIAL As Ordered ONE (07:48)
[2020-05-14] MEDS: NEOSPORIN GU IRRIG 20 ML VIAL As Ordered ONE (08:00)
[2020-05-14] MEDS: BACITRACIN PWD 50,000 UNITS VIAL As Ordered ONE (08:00)
[2020-05-14 09:20] VITALS: BP 171/85
--- NOTE | 2020-06-03 16:09 | RO ---
DATE OF OPERATION: 05/14/2020 PREOPERATIVE DIAGNOSIS: Severe hammertoe deformity with stage IV ulceration, proximal interphalangeal joint, second toe right foot. POSTOPERATIVE DIAGNOSIS: Severe hammertoe deformity with stage IV ulceration, proximal interphalangeal joint, second toe right foot. SURGERY PERFORMED: Second toe amputation, second toe right foot. IRRIGATION: Dilute bacitracin, neomycin, and polymyxin B solution. HEMOSTASIS: None. ESTIMATED BLOOD LOSS: 2 mL. IMPLANTABLES: None. ANESTHESIA: Local monitored anesthesia care (MAC). SURGEON: Fox Williamson DPM DESCRIPTION OF OPERATION PROCEDURE: On 05/14/2020, this 89-year-old white male was taken from his hospital room to the operating room and placed in the supine position. Following the induction of IV sedation, local and regional anesthesia, the right lower extremity was prepped and draped in the usual aseptic manner. Attention was directed to the patient's second toe. There was noted to be a stage IV ulceration at the proximal interphalangeal joint. A fishmouth incision was placed proximal to the ulcer at the base of the second toe. Incision was carried straight to bone. All bleeders encountered were electrocoagulated. Utilizing a power saw, an osteotomy was performed at the proximal metaphyseal- diaphyseal junction of the proximal phalanx from [id number], [id number]. The toe was removed. Any remaining bleeders were electrocoagulated. The wound was flushed with copious amounts of dilute Bacitracin, neomycin, and polymyxin B solution. The wound was closed with 3-0 nylon in a simple interrupted type fashion. Compressive sterile dressing was applied consisting of Adaptic, 4 x 4's, 4 x 4 sponge, Mary, Kerlix, and Coban. The patient, having apparently tolerated the surgical procedure well, was taken from the OR to the recovery room for further monitoring by the anesthesia department. Postoperative instructions were given upon discharge. FRANKY
--- NOTE | 2020-06-07 11:47 | REP ---
RIGHT FOOT RADIOGRAPHS CLINICAL: Status post second toe amputation. TECHNIQUE: AP, lateral, and oblique views of the right foot. FINDINGS: Amputation noted at the MTP (metatarsophalangeal) level. Osseous structures demonstrate osteopenia and age-related degenerative changes. Evidence for peripheral vascular disease noted. IMPRESSION: Advanced osteopenia and degenerative changes with peripheral vascular disease. 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 [facility]
== END 2020-05-14 09:23 | disposition home or self-care (01) ==
LOC: M SDC 06:14
PROVIDERS: ATTEND Podiatrist
DX: M86.9 Osteomyelitis, unspecified (principal)
CPT/HCPCS: 28820; 73630; 88305; 88311; J0690; J3010

== ENCOUNTER → 2020-08-20 | Outpatient (REF) | payer MEDICARE, OTHER, MEDICAID ==
[~2020-08-20] MED LIST changes: +MIRT-60 PO; -REME30TA PO
== END ==
PROVIDERS: ATTEND Internal Medicine
DX: Z20.828 Contact with and (suspected) exposure to other viral communicable diseases (principal)

== ENCOUNTER → 2020-08-25 | Outpatient (REF) | payer MEDICARE, OTHER, MEDICAID ==
[2020-08-25 17:28] LABS: INFLUENZA A AMPLIFICATION NEGATIVE (NEGATIVE); INFLUENZA B AMPLIFICATION NEGATIVE (NEGATIVE)
== END ==
PROVIDERS: ATTEND Internal Medicine
DX: Z20.828 Contact with and (suspected) exposure to other viral communicable diseases (principal)
CPT/HCPCS: 87502; U0003

== ENCOUNTER 2020-08-29 11:15 | Outpatient (CLI) | payer MEDICARE, OTHER, MEDICAID ==
[~2020-08-29 11:15] MED LIST changes: +ACETAMINOPHEN TAB 650MG DOSE (2X325MG) PO ONE; +ALBUTEROL SULFATE 2.5 MG/0.5 ML INH NEB SOLN INH PRN; +EPINEPHrine INJ 1 MG/ML 1ML AMP IM PRN; +NS 1,000 ML IV SCH; +diphenhydrAMINE 50MG/ML VIAL (J1200) IV PRN; +methylPREDNISolone 125MG 2ML VIAL IV ONE; +methylPREDNISolone 125MG 2ML VIAL IV PRN
[2020-08-29 11:30] VITALS: BP 118/82
[2020-08-29 12:00] VITALS: BP 120/82
[2020-08-29] MEDS ORDERED: BAMLANIVIMAB 700 MG in NS 180 ML IV ONE (12:00)
[2020-08-29 12:02] VITALS: BP 120/82
[2020-08-29 12:30] VITALS: BP 120/82
[2020-08-29 13:20] VITALS: BP 116/88
[2020-08-29 14:28] VITALS: BP 116/78
== END 2020-08-29 14:30 ==
LOC: M ICU 11:15 → M OPCLIICU 11:15
PROVIDERS: ATTEND Internal Medicine
DX: U07.1 COVID-19 (principal)
CPT/HCPCS: 96374; J2930; M0239

== ENCOUNTER → 2020-08-30 | Outpatient (REF) | payer MEDICARE, OTHER, MEDICAID ==
[~2020-08-30] MED LIST changes: -ACETAMINOPHEN TAB 650MG DOSE (2X325MG) PO ONE; -ALBUTEROL SULFATE 2.5 MG/0.5 ML INH NEB SOLN INH PRN; -EPINEPHrine INJ 1 MG/ML 1ML AMP IM PRN; -NS 1,000 ML IV SCH; -diphenhydrAMINE 50MG/ML VIAL (J1200) IV PRN; -methylPREDNISolone 125MG 2ML VIAL IV ONE; -methylPREDNISolone 125MG 2ML VIAL IV PRN
== END ==
PROVIDERS: ATTEND Internal Medicine
DX: Z20.828 Contact with and (suspected) exposure to other viral communicable diseases (principal)

== ENCOUNTER → 2020-09-06 | Outpatient (REF) | payer MEDICARE, OTHER, MEDICAID | PROVIDERS: ATTEND Internal Medicine | DX: Z20.828 Contact with and (suspected) exposure to other viral communicable diseases (principal) ==

== ENCOUNTER → 2020-09-13 | Outpatient (REF) | payer MEDICARE, OTHER, MEDICAID | PROVIDERS: ATTEND Internal Medicine | DX: Z11.52 Encounter for screening for COVID-19 (principal) ==

== ENCOUNTER → 2020-09-20 | Outpatient (REF) | payer MEDICARE, OTHER, MEDICAID | PROVIDERS: ATTEND Internal Medicine | DX: Z20.822 Contact with and (suspected) exposure to COVID-19 (principal) ==

== ENCOUNTER → 2020-09-27 | Outpatient (REF) | payer MEDICARE, OTHER, MEDICAID | PROVIDERS: ATTEND Internal Medicine | DX: Z53.9 Procedure and treatment not carried out, unspecified reason (principal) ==

== ENCOUNTER → 2020-10-04 | Outpatient (REF) | payer MEDICARE, OTHER, MEDICAID | PROVIDERS: ATTEND Internal Medicine | DX: Z53.9 Procedure and treatment not carried out, unspecified reason (principal) ==

== ENCOUNTER → 2020-10-18 | Outpatient (REF) | payer MEDICARE, OTHER, MEDICAID | PROVIDERS: ATTEND Internal Medicine | DX: Z20.822 Contact with and (suspected) exposure to COVID-19 (principal) ==

== ENCOUNTER → 2020-10-27 | Outpatient (REF) | payer MEDICAID, MEDICARE, OTHER ==
[~2020-10-27] MED LIST changes: +ACET-897 PO; +AMMO12CR7 TOP; +BISA10SU4 PR; +ECOT81TA5 PO; +ENSU1LIQ36 PO; +FERR1TAB8 PO; +FLEEENE12 PR; +LORA-622 PO; +MOM30SS PO; +ZOLO100T PO
== END ==
PROVIDERS: ATTEND Internal Medicine
DX: Z20.822 Contact with and (suspected) exposure to COVID-19 (principal)

== ENCOUNTER → 2020-11-02 | Outpatient (REF) ==
[~2020-11-02] MED LIST changes: -ACET-897 PO; -AMMO12CR7 TOP; -BISA10SU4 PR; -ECOT81TA5 PO; -ENSU1LIQ36 PO; -FERR1TAB8 PO; -FLEEENE12 PR; -LORA-622 PO; -MOM30SS PO; -ZOLO100T PO
[2020-11-02 11:33] LABS: HEMATOCRIT 39.7 % (42.0-52.0); HEMOGLOBIN 12.3 g/dl (13.5-17.5); MEAN CORPUSCULAR HEMOGLOBIN 29.6 pg (27.0-33.0); MEAN CORPUSCULAR VOLUME 95.4 fl (80.0-96.0); RED BLOOD COUNT 4.16 10^6/uL (4.30-6.10); WHITE BLOOD COUNT 8.1 10^3/uL (4.0-10.0)
[2020-11-02 12:26] LABS: BLOOD UREA NITROGEN 35 MG/DL (7-18); CALCIUM LEVEL 9.3 MG/DL (8.8-10.2); CARBON DIOXIDE LEVEL 28 MEQ/L (21-32); CHLORIDE LEVEL 103 MEQ/L (98-107); CREATININE FOR GFR 0.93 MG/DL (0.70-1.30); GLOMERULAR FILTRATION RATE > 60.0 (>35); GLUCOSE, FASTING 95 MG/DL (70-100); POTASSIUM SERUM 4.1 MEQ/L (3.5-5.1); SODIUM LEVEL 140 MEQ/L (136-145)
== END ==
PROVIDERS: ATTEND Internal Medicine
DX: I10 Essential (primary) hypertension (principal)

== ENCOUNTER → 2020-11-03 | Outpatient (REF) | payer MEDICARE, OTHER, MEDICAID | PROVIDERS: ATTEND Internal Medicine | DX: Z20.822 Contact with and (suspected) exposure to COVID-19 (principal) ==

== ENCOUNTER → 2020-11-10 | Outpatient (REF) | payer MEDICARE, OTHER, MEDICAID | PROVIDERS: ATTEND Internal Medicine | DX: Z20.822 Contact with and (suspected) exposure to COVID-19 (principal) ==

== ENCOUNTER → 2020-11-17 | Outpatient (REF) ==
[~2020-11-17] MED LIST changes: +ACET-897 PO; +AMMO12CR7 TOP; +BISA10SU4 PR; +ENSU1LIQ36 PO; +FERR1TAB8 PO; +FLEEENE12 PR; +LORA-622 PO; +MOM30SS PO; +ZOLO100T PO
== END ==
PROVIDERS: ATTEND Internal Medicine
DX: E03.9 Hypothyroidism, unspecified (principal); Z20.822 Contact with and (suspected) exposure to COVID-19

== ENCOUNTER 2020-11-19 00:30 | Inpatient (IN) | payer MEDICARE, OTHER, MEDICAID ==
[2020-11-19] VITALS (9 sets, daily range): BP systolic 101–148; BP diastolic 66–92; O2SAT 93
[~2020-11-19 00:30] MED LIST changes: -ACET-897 PO; -AMMO12CR7 TOP; -BISA10SU4 PR; -ENSU1LIQ36 PO; -FERR1TAB8 PO; -FLEEENE12 PR; -LORA-622 PO; -MOM30SS PO; -ZOLO100T PO
[2020-11-19 00:51] LABS: BASO % 0.1 % (0.0-1.0); EOS # 0.1 10^3/uL (0.0-0.5); EOS % 0.5 % (0.0-3.0); HEMATOCRIT 38.7 % (42.0-52.0); LYMPH # 0.5 10^3/uL (1.5-5.0); LYMPH % 4.7 % (24.0-44.0); MEAN CORPUSCULAR HEMOGLOBIN 29.9 pg (27.0-33.0); MEAN CORPUSCULAR VOLUME 96.3 fl (80.0-96.0); MONO # 0.6 10^3/uL (0.0-0.8); MONO % 5.4 % (2.0-8.0); NEUTROPHILS # 8.9 10^3/uL (1.5-8.5); NEUTROPHILS % 88.5 % (36.0-66.0); PLATELET COUNT, AUTOMATED 193 10^3/uL (150-450); RED BLOOD COUNT 4.02 10^6/uL (4.30-6.10); WHITE BLOOD COUNT 10.1 10^3/uL (4.0-10.0)
[2020-11-19 01:06] LABS: PROTHROMBIN TIME 13.4 SECONDS (12.5-14.3)
[2020-11-19 01:10] LABS: PARTIAL THROMBOPLASTIN TIME 28.4 SECONDS (24.2-38.5)
[2020-11-19] MEDS ORDERED: ACET-897 PO (01:19)
[2020-11-19] MEDS ORDERED: LORA-622 PO (01:19)
[2020-11-19] MEDS ORDERED: BISA10SU4 PR (01:19)
[2020-11-19] MEDS ORDERED: CARV3.12 PO (01:19)
[2020-11-19] MEDS ORDERED: MOM30SS PO (01:19)
[2020-11-19] MEDS ORDERED: FLEEENE12 PR (01:19)
[2020-11-19] MEDS ORDERED: FERR1TAB8 PO (01:19)
[2020-11-19] MEDS ORDERED: ENSU1LIQ36 PO (01:19)
[2020-11-19] MEDS ORDERED: FURO20TA2 PO (01:19)
[2020-11-19] MEDS ORDERED: AMMO12CR7 TOP (01:19)
[2020-11-19] MEDS ORDERED: ZOLO100T PO (01:19)
[2020-11-19 01:24] LABS: ALBUMIN 3.3 GM/DL (3.2-5.2); BILIRUBIN,DIRECT 0.1 MG/DL (0.0-0.2); BILIRUBIN,TOTAL 0.2 MG/DL (0.2-1.0); CALCIUM LEVEL 9.2 MG/DL (8.8-10.2); CK-MB VALUE MASS 1.7 NG/ML (<3.6); CREATININE FOR GFR 1.23 MG/DL (0.70-1.30); FREE T4 1.37 NG/DL (0.76-1.46); MB/CK RELATIVE INDEX 2.79 (< OR =4); POTASSIUM SERUM 4.7 MEQ/L (3.5-5.1); THYROID STIMULATING HORMONE 3.94 uIU/ML (0.358-3.740); TOTAL PROTEIN 6.5 GM/DL (6.4-8.2); TROPONIN I 0.02 NG/ML (< 0.10)
--- NOTE | 2020-11-19 01:31 | REPVR ---
PROCEDURE INFORMATION: Exam: CT Head Without Contrast Exam date and time: 11/19/2020 12:36 AM Age: 89 years old Clinical indication: Injury or trauma; Fall; Concussion/head injury TECHNIQUE: Imaging protocol: Computed tomography of the head without contrast. Radiation optimization: All CT scans at this facility use at least one of these dose optimization techniques: automated exposure control; mA and/or kV adjustment per patient size (includes targeted exams where dose is matched to clinical indication); or iterative reconstruction. COMPARISON: CT Head without contrast 2019-03-14 13:23 FINDINGS: Brain: Severe anterior temporal lobe volume loss. Question Alzheimer's disease. No midline shift, mass, fluid collection, or evidence of acute hemorrhage. Couple small right MCA cerebral sulci vascular calcifications. Adjacent small chronic cortical infarcts. Cerebral ventricles: Ventricular enlargement proportional to volume loss. Bones/joints: Unremarkable. No acute fracture. Paranasal sinuses: Visualized sinuses are unremarkable. No fluid levels. Mastoid air cells: Visualized mastoid air cells are well aerated. Soft tissues: Unremarkable. IMPRESSION: 1. No acute intracranial abnormality. 2. Severe anterior temporal lobe volume loss. Question Alzheimer's disease. 3. Couple small right MCA cerebral sulci vascular calcifications. Adjacent small chronic cortical infarcts. Electronically signed by: Casey Landin On 11/19/2020 01:31:58 AM
--- NOTE | 2020-11-19 01:32 | REPVR ---
PROCEDURE INFORMATION: Exam: CT Cervical Spine Without Contrast Exam date and time: 11/19/2020 12:36 AM Age: 89 years old Clinical indication: Neck pain; Additional info: Trauma TECHNIQUE: Imaging protocol: Computed tomography images of the cervical spine without contrast. Radiation optimization: All CT scans at this facility use at least one of these dose optimization techniques: automated exposure control; mA and/or kV adjustment per patient size (includes targeted exams where dose is matched to clinical indication); or iterative reconstruction. COMPARISON: No relevant prior studies available. FINDINGS: Bones/joints: Minimal degenerative multilevel subluxations. Discs/Spinal canal/Neural foramina: Diffuse degenerative disc space loss with degenerative disc osteophyte complexes, facet arthropathy, and ligamentum flavum thickening causes up to moderate spinal and foraminal stenosis greatest at C4-C6. Thyroid: 1 cm hypodense right thyroid lobe nodule. Lungs: Lung apices are normal. Vasculature: There is mild atherosclerotic calcification of the carotid arteries. Moderate left carotid calcifications. Soft tissues: Unremarkable. IMPRESSION: No acute findings. COMMENTS: Consistent with the [employer]'s Incidental Findings Committee white paper (J Am Benji Radiol 2015): In patients aged 35 years and older with an incidental thyroid nodule equal to or greater than 1.[address], MRI or extrathyroidal US, further evaluation with dedicated thyroid US is recommended for patients with normal life expectancy and without comorbidities. For smaller nodules without suspicious features, no further evaluation or follow up is recommended. Electronically signed by: Casey Landin On 11/19/2020 01:33:28 AM
--- NOTE | 2020-11-19 01:53 | REPVR ---
PROCEDURE INFORMATION: Exam: XR Chest Exam date and time: 11/19/2020 1:43 AM Age: 89 years old Clinical indication: Other: Trauma TECHNIQUE: Imaging protocol: XR of the chest Views: 1 view. COMPARISON: 1. CR Chest, 2 view PA, Lat 2018-06-09 16:[address] ANGIO CHEST 2018-06-09 19:12 3. CR PORTABLE CHEST X-RAY 2017-01-29 20:33 FINDINGS: Tubes, catheters and devices: ICD. Lungs: Suboptimal technique, lungs are washed out and nondiagnostic. Pleural spaces: Unremarkable. No pleural effusion. No pneumothorax. Heart/Mediastinum: Unremarkable. No cardiomegaly. Bones/joints: Sternotomy. IMPRESSION: Suboptimal technique, lungs are washed out and nondiagnostic. Recommend assessing food quality tester, and repeating. Electronically signed by: Casey Landin On 11/19/2020 01:54:15 AM
--- NOTE | 2020-11-19 01:56 | REPVR ---
PROCEDURE INFORMATION: Exam: XR Right Hip Exam date and time: 11/19/2020 1:43 AM Age: 89 years old Clinical indication: Other: Trauma TECHNIQUE: Imaging protocol: XR Right hip. Views: 2 or 3 views hip with pelvis when performed. COMPARISON: CT ABD/PEL W/PO CONTRAST ONLY 2017-11-15 15:06 FINDINGS: Bones/joints: Acute displaced right femoral neck fracture. Moderate degenerative joint disease throughout. Soft tissues: Unremarkable. IMPRESSION: Acute displaced right femoral neck fracture. Electronically signed by: Casey Landin On 11/19/2020 01:57:34 AM
--- NOTE | 2020-11-19 02:06 | REPVR ---
PROCEDURE INFORMATION: Exam: XR Right Femur Exam date and time: 11/19/2020 1:43 AM Age: 89 years old Clinical indication: Other: Trauma TECHNIQUE: Imaging protocol: XR Right femur. Views: 2 views. COMPARISON: No relevant prior studies available. FINDINGS: Bones/joints: Knee arthroplasty hardware. Chronic patellar deformity. Soft tissues: Unremarkable. Vasculature: Mild arterial calcifications. IMPRESSION: No acute abnormality. Electronically signed by: Casey Landin On 11/19/2020 02:06:34 AM
[2020-11-19] MEDS ORDERED: NS 1,000 ML IV SCH (02:54)
[2020-11-19] MEDS ORDERED: MORPHINE 2 MG/ML 1ML VIAL (J2270) IV ONE (02:55)
[2020-11-19] MEDS ORDERED: PERCOCET 5MG/325MG TAB PO ONE (02:55)
--- NOTE | 2020-11-19 03:14 | HPEPDOC ---
[facility] Medical History & Physical Date of Admission Nov 19, 2020 Date of Service: Nov 19, 2020 Attending Physician: ESTRELLITA THOMPSON MD History and Physical CHIEF COMPLAINT: R hip pain after fall HISTORY OF PRESENT ILLNESS: 89 year old male with PMHx detailed below presented to the ED after an unwitnessed fall at [facility] where the patient resides. Patient states he was walking in the [place] with his walker and went to turn around. He states that he fell while turning. He states he tried to get himself up but could not get up due to the pain in his right hip. He denies hitting his head. He denies loss of consciousness. He states he had been feeling well in the past few days leading up to this event. He denies lightheadedness or dizziness prior to the fall. He denies any feeling of nausea, vomiting, abdominal discomfort, feeling cold, sweating, or blurred vision before falling. During my interview with the patient, he does have some difficulty answering my questions and recalling recent events. Patient is a poor historian and most of the history is obtain by chart review. PAST MEDICAL HISTORY: CAD CHF with grade 2 diastolic dysfunction A. fib (not on anticoagulation) Tachybrady syndrome s/p PM HTN DLP BPH Gout Hx of Rectal prolapse s/p repair Hx of rectal bleeding while on Xarelto Anxiety/Depression GERD PAST SURGICAL HISTORY: Left arm fracture 1971 Right inguinal hernia repair 1973 Left inguinal hernia repair 1976 Prostate biopsy 1982 Right knee replacement 2005 Bilateral cataract surgery 2007 Bilateral inguinal hernia repair with mesh 2007 Robotic rectal procedure for rectal prolapse 2010 and 2011 Pacemaker placement 2012 Coronary artery bypass grafting 2012 Right and Left carpal tunnel surgery 2013 SOCIAL HISTORY: No history of tobacco use. No alcohol use. 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 REVIEW OF SYSTEMS: CONSTITUTIONAL: Denies fevers, chills, night sweats, fatigue, unexpected change in weight. HEENT: Denies change in vision, change in hearing. CARDIOVASCULAR: Denies chest pain, palpitations, lightheadedness. RESPIRATORY: Denies dyspnea, cough, wheezing. GASTROINTESTINAL: Denies nausea, vomiting, abdominal pain, diarrhea, constipation, blood in stool. GENITOURINARY: Denies dysuria, urinary frequency, urinary urgency. SKIN: Denies rash, lesions. MUSCULOSKELETAL: Positive per HPI. NEUROLOGICAL: Denies headache, dizziness. PSYCHIATRIC: Denies change in mood. HOME MEDICATIONS: Please see below. PHYSICAL EXAMINATION: VITAL SIGNS: See below GENERAL: Alert, somewhat uncomfortable, in no acute distress HEENT: Normocephalic, atraumatic, sclera anicteric, moist mucous membranes NECK: Supple, trachea midline, JVP does not appear elevated CARDIOVASCULAR: Regular rate and rhythm, normal S1 and S2. RESPIRATORY: Clear to auscultation bilaterally with equal air entry bilaterally. No wheezing, rhonchi, or rales ABDOMEN: Soft, nontender, nondistended, bowel sounds present EXTREMITIES: Trace edema in bilateral lower extremities Pulses 2+/4 in bilateral upper and lower extremities SKIN: [place], warm, dry NEUROLOGIC: Alert and oriented x1 to person. He is not oriented to place or time. He has some difficulty with answering questions due to his memory. No focal deficits appreciated PSYCHIATRIC: Mood and affect appropriate LABORATORY DATA: See below. IMAGING: (impression per radiologist report) - R Hip/pelvis XR Acute displaced right femoral neck fracture. - R Femur XR No acute abnormality. - CXR Suboptimal technique, lungs are washed out and nondiagnostic. Recommend assessing fiberglass quality technician, and repeating. - Head CT 1. No acute intracranial abnormality. 2. Severe anterior temporal lobe volume loss. Question Alzheimer's disease. 3. Couple small right MCA cerebral sulci vascular calcifications. Adjacent small chronic cortical infarcts. - CT cervical spine No acute findings. MICROBIOLOGY: Please see below. ASSESSMENT: 89 year old male with PMHx of CAD, atrial fibrillation not on antic oagulation, tachybrady syndrome s/p pacemaker, and CHF, who presented to the ED after an unwitnessed fall at [facility] found to have right femoral neck fracture on xray admitted for further evaluation by orthopedic surgery. PLAN: 1. Right femoral neck fracture secondary to mechanical fall - Orthopedic surgery to evaluate the patient for possible surgical intervention - Will keep patient NPO overnight in case of surgery - plan for PT/OT eval at some point during admission - Pain control currently with IV morphine 2. Fall, likely mechanical - Pt denies any symptoms preceding the fall - Workup shows mild elevation in WBC, H/H at baseline, elevated alk phos, and mildly elevated TSH - pt is hypoxic and requiring supplemental oxygen, discussed below 3. Hypoxia - Unclear why patient is requiring supplemental oxygen - may be secondary to pain causing respiratory splinting, although this would be less likely as his fracture is in his hip - exacerbation of CHF possible, but patient does not look fluid overloaded on exam - will repeat CXR due to poor quality. if hypoxia does not improve consider c hest CT 4. Dementia - Unclear if this is his baseline. May also be worse due to his acute pain. - Head CT shows no acute changes 5. Atrial fibrillation with tachy-asha syndrome s/p pacemaker - hold amiodarone while npo - Currently not on full anticoagulation due to hx of GI bleedsr - EKG shows ventricular pacing 6. Diastolic CHF - hold carvedilol and furosemide while NPO - hold off on maintenance fluid for now to avoid fluid overload 7. CAD - hold atorvastatin while NPO 8. Hypothyroidism - hold levothyroxine while NPO 9. BPH - hold tamsulosin while NPO 10. Gout - hold allopurinol while NPO 11. Anxiety/Depression - hold sertraline and mirtazapine while NPO 12. GERD - hold ranitidine while NPO DVT prophylaxis: TEDs/Sequentials while pending possible surgery Disposition: admitted inpatient to med/surg, expect greater than two midnights stay Vital Signs Vital Signs Date Time Temp Pulse Resp B/P (MAP) Pulse Ox O2 Delivery O2 Flow Rate FiO2 11/19/20 01:40 97.7 11/19/20 00:54 80 20 140/77 (98) 97 Nasal Cannula 3.0 Laboratory Data Labs 24H Laboratory Tests 2 11/19/20 00:41: Prothrombin Time 13.4, Prothromb Time International Ratio 1.00, Activated Partial Thromboplast Time 28.4 11/19/20 00:42: Immature Granulocyte % (Auto) 0.8, Neutrophils (%) (Auto) 88.5H, Lymphocytes (%) (Auto) 4.7L, Monocytes (%) (Auto) 5.4, Eosinophils (%) (Auto) 0.5, Basophils (%) (Auto) 0.1, Neutrophils # (Auto) 8.9H, Lymphocytes # (Auto) 0.5L, Monocytes # (Auto) 0.6, Eosinophils # (Auto) 0.1, Basophils # (Auto) 0.0, Nucleated Red Blood Cells % (auto) 0.0, Anion Gap 7L, Glomerular Filtration Rate 59.0, Calcium Level 9.2, Total Bilirubin 0.2, Direct Bilirubin 0.1, Aspartate Amino Transf (AST/SGOT) 37, Alanine Aminotransferase (ALT/SGPT) 37, Alkaline Phosphatase 175H, Total Creatine Kinase 61, Creatine Kinase MB 1.7, Creatine Kinase MB Relative Index 2.79, Troponin I 0.02, Total Protein 6.5, Albumin 3.3, Albumin/Globulin Ratio 1.0, Thyroid Stimulating Hormone (TSH) 3.940H, Free Thyroxine 1.37 CBC/BMP Laboratory Tests 11/19/20 00:42 Home Medications Scheduled Allopurinol (Zyloprim) 300 Mg Tab, 150 MG PO DAILY Amiodarone HCl (Amiodarone HCl) 200 Mg Tab, 200 MG PO DAILY Atorvastatin Calcium (Atorvastatin Calcium) 10 Mg Tab, 10 MG PO QHS Carvedilol (Carvedilol) 3.125 Mg Tablet, 3.125 MG PO BID Famotidine (Famotidine) 20 Mg Tablet, 40 MG PO DAILY Ferrous Sulfate (Ferrous Sulfate) 325 Mg Tablet, 325 MG PO DAILY Furosemide (Furosemide) 20 Mg Tablet, 20 MG PO DAILY Lactose-Reduced Food (Ensure Enlive) 237 Ml Liquid, 120 ML PO BID Levothyroxine Sodium (Synthroid) 125 Mcg Tablet, 125 MCG PO DAILY Loratadine (Loratadine) 10 Mg Tablet, 10 MG PO QHS Mirtazapine (Remeron) 30 Mg Tablet, 30 MG PO DAILY Multivitamins (Thera M Plus Tablet) 1 Tab Tab, 1 TAB PO DAILY Propylene Glycol/Peg 400/Pf (Systane 0.3-0.4% Eye Drop) 1 Each Droperette, 1 DROP OU QID Sertraline Hcl (Zoloft) 100 Mg Tablet, 100 MG PO DAILY Tamsulosin HCl (Flomax) 0.4 Mg Capsule, 0.4 MG PO QHS Scheduled PRN Acetaminophen (Tylenol Extra Strength) 500 Mg Tablet, 1,000 MG PO Q8H PRN for PAIN Ammonium Lactate (Ammonium Lactate) 12% Cream..g., 1 DOSE TOP BID PRN for RASH Bisacodyl (Bisacodyl) 10 Mg Supp.rect, 10 MG IA DAILY PRN for CONSTIPATION Fluticasone Propionate (Flonase Allergy Relief) 50 Mcg/Act Spr, 1 SPRAY NA DAILY PRN for RHINITIS Loperamide HCl (Imodium A-D) 2 Mg Tablet, 2 MG PO QID PRN for DIARRHEA Milk Of Magnesia (Milk of Magnesia) 2,400 Mg/10 Ml Oral.susp, 10 ML PO DAILY PRN for CONSTIPATION Nitroglycerin (Nitrostat) 0.4 Mg Subl, 0.4 MG SL NITRO PRN for CHEST PAIN Sodium Phosphate,[place]-Dibasic (Fleet Enema) 133 Ml Enema, 1 BERNABE IA DAILY PRN for CONSTIPATION Allergies Coded Allergies: No Known Allergies (Verified Allergy, Unknown, 03/12/19) A-FIB/CHADSVASC A-FIB History Current/History of A-Fib/PAF?: Yes Current PO Anticoag Therapy: No Treatment Treatment ordered: NONE Other reason anticoagulant not: Hx GI bleeding causing symptomatic anemia GME ATTESTATION GME ATTESTATION My faculty preceptor for this patient encounter was physically present during the encounter and was fully available. All aspects of the patient interview, ex amination, medical decision making process, and medical care plan development were reviewed and approved by the faculty preceptor. The faculty preceptor is aware and concurs with the plan as stated in the body of this note and will attest to such by his/her cosignature. ATTENDING NOTE IMamta, have independently examined this patient and performed my own physical exam, as well as reviewed the documentation and edited where necessary. I have discussed in detail with the resident / student the findings and plan of treatment as documented by the resident / student and edited their note. I agree with their findings and treatment plan and have edited their documentation. I will continue to follow the patient during this hospital stay. YESY MCCULLOUGH D.O. Nov 19, 2020 03:14 ESTRELLITA THOMPSON MD Nov 20, 2020 05:55
[2020-11-19] MEDS ORDERED: MORPHINE 2 MG/ML 1ML VIAL (J2270) IV PRN ×2 (03:15→23:55)
--- NOTE | 2020-11-19 04:06 | REPVR ---
PROCEDURE INFORMATION: Exam: XR Chest Exam date and time: 11/19/2020 3:47 AM Age: 89 years old Clinical indication: Other: Hypoxia TECHNIQUE: Imaging protocol: XR of the chest Views: 1 view. COMPARISON: 1. CR Chest, 1 view 2020-11-19 00:57 2. CR Chest, 2 view PA, Lat 2018-06-09 16:[address] ANGIO CHEST 2018-06-09 19:12 4. CR PORTABLE CHEST X-RAY 2017-01-29 20:33 FINDINGS: Tubes, catheters and devices: AICD/Pacemaker device is present, and its leads are in appropriate position. There are sternal wires consistent with a previous sternotomy incision. Lungs: Dependent subsegmental pulmonary atelectasis. Bibasilar atelectasis or infiltrate. Pleural spaces: Numerous regions of a spasticity related pleural plaques. Heart/Mediastinum: Cardiomegaly. Cardiomegaly. Bones/joints: Unremarkable. IMPRESSION: 1. Numerous regions of a spasticity related pleural plaques. 2. Bibasilar atelectasis or infiltrate. Electronically signed by: Casey Landin On 11/19/2020 04:07:24 AM
[2020-11-19] MEDS: MORPHINE 2 MG/ML 1ML VIAL (J2270) IV PRN ×4 (04:23→22:14)
[2020-11-19] MEDS: FERROUS SULFATE 325MG TAB PO SCH (09:00)
[2020-11-19] MEDS: MIRTAZAPINE 15 MG TAB PO SCH (09:00)
[2020-11-19] MEDS: AMIODARONE 200 MG TAB (PACERONE) PO SCH (09:00)
[2020-11-19] MEDS: MULTIVITAMINS/MINERALS THERAP 1 TAB PO SCH (09:00)
[2020-11-19] MEDS: FAMOTIDINE 20 MG TAB PO SCH (09:00)
[2020-11-19] MEDS ORDERED: KETAMINE HCL 200 MG/20 ML VIAL As Ordered ONE (14:09)
[2020-11-19] MEDS ORDERED: fentaNYL 100 MCG/2 ML INJECTION (J3010) As Ordered ONE (14:10)
[2020-11-19] MEDS ORDERED: propofoL 500 MG/50 ML VIAL As Ordered ONE (14:10)
[2020-11-19] MEDS ORDERED: MIDAZOLAM INJ 2MG/2ML VIAL (J2250 PER 1MG) As Ordered ONE (14:10)
[2020-11-19] MEDS ORDERED: ceFAZolin 1GM VIAL (J0690 PER 500MG) As Ordered ONE (14:10)
[2020-11-19] MEDS ORDERED: ONDANSETRON 4MG/2ML VIAL As Ordered ONE (14:15)
[2020-11-19] MEDS ORDERED: PHENYLEPHRINE 10MG/ML 1ML VIAL (J2370 PER 1) As Ordered ONE (14:16)
--- NOTE | 2020-11-19 14:51 | IPNPDOC ---
Subjective Date Seen The patient was seen on 11/19/20. Subjective Chief Complaint/HPI Mr. Orozco is an 89 year old male from [facility] who had a mechanical fall and had subsequent right femoral neck fracture. He was seen this morning prior to going down to surgery. He is a mouth breather and was put on a Ventimask. Denies dyspnea, chest pain, or abdominal pain. Planning to go down to the OR today. Objective Physical Examination General Exam: Positive: Cooperative Eye Exam: Positive: EOMI; Negative: Sclera icteric ENT Exam: Positive: Atraumatic Chest Exam: Positive: Clear to auscultation Heart Exam: Positive: Rate Normal, Regular Rhythm Abdomen Exam: Positive: Normal bowel sounds, Soft; Negative: Tenderness Extremity Exam: Positive: Edema (mild bilateral pitting edema) Neuro Exam: Positive: Normal Speech Psych Exam: Positive: Mental status NL, Mood NL Assessment /Plan Assessment Mr. Orozco is an 89 year old male from [facility] who had a mechanical fall and had subsequent right femoral neck fracture. Orthopedic surgery, Dr. Connelly was contacted downstairs in the ED. Planning to go to the OR today. Plan/VTE VTE Prophylaxis Ordered?: Yes Plan 1. Right femoral neck fracture -Secondary to mechanical fall -Orthopedic surgery consulted, recommendations appreciated -Planning to go to the OR today 2. Atrial fibrillation, tachy asha syndrome s/p pacemaker -Amiodarone held, restart after surgery -Not on anticoagulation due to GI bleed 3. Diastolic CHF -Not grossly fluid overloaded at this time -Restart diuretics after surgery 4. CAD s/p CABG -Restart Coreg and atorvastatin after surgery 5. Hypothyroidism -Restart levothyroxine after surgery 6. BPH -Restart tamsulosin after surgery 7. Gout -Restart allopurinol after surgery 8. Anxiety/depression -Mirtazapine and Sertraline after surgery 9. GERD -Restart famotidine after surgery 10. DVT ppx -SCD and TEDs Disposition: Pending surgery and subsequent PT/OT evaluation VS, I&O, 24H, Fishbone Vital Signs/I&O Vital Signs Date Time Temp Pulse Resp B/P (MAP) Pulse Ox O2 Delivery O2 Flow Rate FiO2 11/19/20 12:35 16 11/19/20 08:39 94 Venturi Mask 6.0 28 11/19/20 06:00 96.8 80 137/86 (103) I&O- Last 24 Hours up to 6 AM 11/19/20 06:00 Intake Total 0 ml Output Total 200 ml Balance -200 ml Laboratory Data 24H LABS Laboratory Tests 2 11/19/20 00:41: Prothrombin Time 13.4, Prothromb Time International Ratio 1.00, Activated Partial Thromboplast Time 28.4 11/19/20 00:42: Immature Granulocyte % (Auto) 0.8, Neutrophils (%) (Auto) 88.5H, Lymphocytes (%) (Auto) 4.7L, Monocytes (%) (Auto) 5.4, Eosinophils (%) (Auto) 0.5, Basophils (%) (Auto) 0.1, Neutrophils # (Auto) 8.9H, Lymphocytes # (Auto) 0.5L, Monocytes # (Auto) 0.6, Eosinophils # (Auto) 0.1, Basophils # (Auto) 0.0, Nucleated Red Blood Cells % (auto) 0.0, Anion Gap 7L, Glomerular Filtration Rate 59.0, Calcium Level 9.2, Total Bilirubin 0.2, Direct Bilirubin 0.1, Aspartate Amino Transf (AST/SGOT) 37, Alanine Aminotransferase (ALT/SGPT) 37, Alkaline Phosphatase 175H, Total Creatine Kinase 61, Creatine Kinase MB 1.7, Creatine Kinase MB Relative Index 2.79, Troponin I 0.02, Total Protein 6.5, Albumin 3.3, Albumin/Globulin Ratio 1.0, Thyroid Stimulating Hormone (TSH) 3.940H, Free Thy roxine 1.37 11/19/20 05:45: Bedside Glucose (Misc Panel) 125H 11/19/20 11:53: Bedside Glucose (Misc Panel) 114H CBC/BMP Laboratory Tests 11/19/20 00:42 SAMMI MANCERA 12, 2021 14:51
[2020-11-19] MEDS ORDERED: ceFAZolin 2 GM/D5W 50 ML IV BAG (J0690 PER 500MG) As Ordered ONE (15:50)
--- NOTE | 2020-11-19 16:19 | CR ---
CONSULTATION DATE: 11/19/2020 CHIEF COMPLAINT: Right femoral neck fracture. HISTORY OF PRESENT ILLNESS: This 89-year-old [place] [address]. He had a fall while walking with his walker. These details are from the hospitalist consultation. The patient is confused at baseline and a poor historian. He denied loss of consciousness. PAST MEDICAL HISTORY: Includes: 1. Coronary artery disease (CAD). 2. Congestive heart failure (CHF). 3. Atrial fibrillation. 4. Tachycardia/bradycardia syndrome. 5. Hypertension. 6. Dyslipidemia (DLP). 7. Benign prostatic hypertrophy (BPH). 8. Gout. 9. Rectal prolapse. 10. Rectal bleeding while on Xarelto. 11. Anxiety/depression. 12. Gastroesophageal reflux disease (GERD). MEDICATIONS: - allopurinol - amiodarone - atorvastatin - carvedilol - famotidine - ferrous sulfate - furosemide - Ensure - Synthroid - loratadine - Remeron - multivitamins - percutaneous endoscopic gastrostomy (PEG) - sertraline - tamsulosin ALLERGIES: No known drug allergies. SURGICAL HISTORY: 1. Left arm fracture. 2. Right inguinal hernia. 3. Left inguinal hernia. 4. Prostate biopsy. 5. Right total knee arthroplasty. 6. Bilateral cataract surgeries. 7. Inguinal hernia repair. 8. Rectal prolapse. 9. Pacemaker. 10. Coronary artery bypass graft. 11. Right and left carpal tunnel surgery. SOCIAL HISTORY: No history of tobacco use. Uses a walker. 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 PHYSICAL EXAMINATION: This is an 89-year-old man. Thin overall. He is a little bit confused. He has difficulty answering my questions. VITAL SIGNS: His vital signs appear stable; however, he is in oxygen, nasal cannula at 6 liters. RIGHT LOWER EXTREMITY: Closed injury. No obvious overlying skin lesions or tears. He is able to dorsiflex and plantarflex. He states there is normal sensation in his foot, although he is a difficult historian. Foot is warm and well-perfused. Reasonable posterior tibialis pulse. IMAGING DATA: Radiographs were reviewed. This showed displaced right femoral neck fracture. No obvious abnormalities of the femur on x-ray. There is a total knee arthroplasty in situ. LABORATORY DATA: Hemoglobin 12. Normal coagulation studies. COVID negative. ASSESSMENT AND PLAN: This is an 89-year-old man with a displaced right femoral neck fracture with baseline confusion, I have spoken to his healthcare proxy on the phone this morning at approximately 7:15 a.m. This was Matthew Orozco and his . I discussed the pros and cons, risks and benefits of no treatment versus surgical management of this problem, which would be hemiarthroplasty. Pros and cons, risks and benefits of surgical management were discussed which include, but not limited to infection, pain, stiffness, weakness, limb instability, fracture, component disassociation, dislocation, component problems, component wear, osteoarthritis, neurovascular injury, damage to surrounding structures, need for further surgery or revision, as well as anesthetic complications, blood clots, and other risks not listed. They wished to go ahead, and we did two person consent witnessed by nurse, who was also present. They also signed consent form for possible need for blood products and risks for that include, but are not to limited to fever, allergic reaction, transmission of bacteria or viruses. They signed tenderness consent form for that as well, two person over the phone consent. We marked the right lower extremity and we will keep the patient nothing by mouth in preparation for surgery within the next 48 hours, ideally. It will be controversial as to after surgery what anticoagulation to choose, as the patient does have a history of rectal bleeding while placed on Xarelto for atrial fibrillation, so that will have to be a discussion made with myself and the hospitalist service to come unremarkable with the most ideal deep venous thrombosis (DVT) prophylaxis post surgery for this patient.
[2020-11-19] MEDS ORDERED: TRANEXAMIC ACID 100 MG/ML 10ML VIAL As Ordered ONE (16:22)
[2020-11-19] MEDS: EPINEPHrine INJ 1 MG/ML 1ML AMP As Ordered ONE ×2 (16:43→17:45)
[2020-11-19] MEDS ORDERED: ACETAMINOPHEN 1000MG 100ML IV BTL (OFIRMEV) (J0131 PER 10MG) As Ordered ONE (17:45)
--- NOTE | 2020-11-19 18:39 | REP ---
INDICATION: POST OP EVAL IN PACU COMPARISON: None. TECHNIQUE: Single portable AP view of the right hip. FINDINGS: Patient is status post satisfactory right hip replacement for fracture. Normal appearance to the orthopedic hardware. Overlying postsurgical changes noted. IMPRESSION: Status post right hip replacement. <Electronically signed by Isidro Reyes > 11/19/20 [id number]
--- NOTE | 2020-11-19 18:47 | ECGEPIP ---
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
--- NOTE | 2020-11-19 19:01 | ROOPDOC ---
[facility] Report Of Operation Report of Operation DATE OF PROCEDURE: 11/19/20 PREPROCEDURE DIAGNOSES: Right femoral neck fracture. POSTPROCEDURE DIAGNOSES: Right femoral neck fracture. PROCEDURE: Right hip cemented hemiarthroplasty. SURGEON: Jluis Parmar MD CLIENT SOLUTIONS DIRECTOR: Not applicable ANESTHESIA: Spinal anesthetic Dr Gage. ESTIMATED BLOOD LOSS: Approximately 100 mL. COMPLICATIONS: None. REMARKS: Patient had a rectal prolapse after the spinal went in PROCEDURE NOTE: This 89-year-old man had a fall and sustained a displaced right femoral neck fracture. I talked to his medical decision maker and they consented for right hip hemiarthroplasty. I marked the right lower extremity and we proceeded to surgery. DESCRIPTION OF PROCEDURE: Patient was brought to the operating theater. They were administered a spinal anesthetic. Placed right lateral decubitus with the [facility]. All bony prominences were padded. Axillary roll was used. SCD used on the down leg. Limb was prepped and draped in the usual sterile fashion with chlorhexidine-based prep solution allowing over 3 minutes preparatory solution drying time prior to draping. 2 g of IV Ancef was administered prior to the start of the case as well as 1 g of IV tranexamic acid. Preoperative timeout was performed confirming the site the patient and the surgery. Began by making a standard lateral incision over the proximal femur. I carried this dissection down through skin and subcutaneous tissue achieved meticulous hemostasis. I incised the tensor fascia shon in line with the skin incision. I sharply excised the anterior one third of the abductors off the greater trochanter. I made a T-shaped capsulotomy. I tagged each limb with #1 Vicryl sutures. I delivered the femoral head through the incision using the corkscrew instrument. I made my femoral neck cut approximately 1 cm above the level of the lesser trochanter. I used the lateralizing instruments and then sequentially broached up to a size 6. I trialed with a -3 mm taper with a size 50 mm head. This appeared stable and solid in flexion and internal rotation as well as extension and external rotation. Leg lengths are equal. Shuck test was normal. I removed the trial components. I prepared the femoral canal using pulse lavage. I placed a #4 distal cement restrictor. I tapped this into place. I mixed cement using third-generation cement mixing techniques. I pressurize the canal with the cement. Patient was stable through cement pressurization. I inserted the size 6 Synthes Otoe stem. I allowed the cement to fully cure. I cleaned the trunnion with the pulse lavage followed by application of the -3 mm taper size 50 mm final head. I tapped this into place Romero taper was stable. I reduced the hip. Again stability was checked and found to be normal. No impingement. Leg lengths equal. I closed the capsule with #1 Vicryl sutures. I repaired the abductors using transosseous holes with #2 FiberWire suture. I repaired the tensor fascia shon with running #1 strata fix suture. I closed the subcutaneous tissue with 2-0 Vicryl sutures after thoroughly irrigating the wounds. I then placed Prineo wo und care dressing with Dermabond allowed this to fully dry. Patient was transferred out of the hip positioner off the operating room table and taken to postanesthetic care unit in stable condition. All sponge, needle, instrument counts were correct. No complications. Estimated blood loss 100 mL. The patient is to be weightbearing as tolerated. VTE prophylaxis I will further discuss with the hospitalist service as the patient did have bleeding complications after being on Xarelto for atrial fibrillation in the past. I will order Ancef IV 2 g every 8 hours for 2 doses postoperatively for antibiotic prophylaxis. X-ray of the right hip in the postanesthetic care unit. Follow-up in the clinic in 2 weeks' time. I spoke with the patient's family after the surgery as well. JLUIS PARMAR MD Nov 19, 2020 19:01
[2020-11-19] MEDS: ATORVASTATIN 10 MG TAB PO SCH (21:00)
[2020-11-19] MEDS: TAMSULOSIN 0.4 MG CAP PO SCH (21:00)
[2020-11-19] MEDS: CARVedilol 3.125 MG TAB PO SCH (21:00)
[2020-11-19] MEDS: POLYVINYL ALCOHOL OPHTH SOLN 15 ML(LIQUITEARS) OU SCH (21:00)
[2020-11-19] MEDS: LORATADINE 10 MG TAB PO SCH (21:00)
[2020-11-19] MEDS: ONDANSETRON 4MG/2ML VIAL IV PRN (22:13)
[2020-11-19] MEDS ORDERED: LR 1,000 ML IV SCH (23:55)
[2020-11-20] VITALS (9 sets, daily range): BP systolic 95–130; BP diastolic 57–89; O2SAT 93–98
[2020-11-20] MEDS: ceFAZolin SOD 2 GM in IV 1 EA IV SCH ×2 (00:14→08:39)
[2020-11-20] MEDS: PERCOCET 5MG/325MG TAB PO PRN ×3 (01:48→15:36)
[2020-11-20] MEDS: LEVOTHYROXINE 125MCG TABLET (0.125MG) PO SCH (05:36)
[2020-11-20] MEDS: ONDANSETRON 4MG/2ML VIAL IV PRN (05:37)
[2020-11-20 06:41] LABS: HEMATOCRIT 36.7 % (42.0-52.0); HEMOGLOBIN 11.3 g/dl (13.5-17.5); MEAN CORPUSCULAR HEMOGLOBIN 30.5 pg (27.0-33.0); MEAN CORPUSCULAR HGB CONC 30.8 g/dl (32.0-36.5); MEAN CORPUSCULAR VOLUME 98.9 fl (80.0-96.0); PLATELET COUNT, AUTOMATED 165 10^3/uL (150-450); RED BLOOD COUNT 3.71 10^6/uL (4.30-6.10); WHITE BLOOD COUNT 13.1 10^3/uL (4.0-10.0)
[2020-11-20 06:58] LABS: BLOOD UREA NITROGEN 23 MG/DL (7-18); CALCIUM LEVEL 8.4 MG/DL (8.8-10.2); CARBON DIOXIDE LEVEL 26 MEQ/L (21-32); CHLORIDE LEVEL 109 MEQ/L (98-107); CREATININE FOR GFR 0.93 MG/DL (0.70-1.30); GLOMERULAR FILTRATION RATE > 60.0 (>35); GLUCOSE, FASTING 124 MG/DL (70-100); POTASSIUM SERUM 4.1 MEQ/L (3.5-5.1); SODIUM LEVEL 141 MEQ/L (136-145)
[2020-11-20] MEDS: FERROUS SULFATE 325MG TAB PO SCH (08:39)
[2020-11-20] MEDS: SERTRALINE 100 MG TAB PO SCH (08:39)
[2020-11-20] MEDS: AMIODARONE 200 MG TAB (PACERONE) PO SCH (08:39)
[2020-11-20] MEDS: FAMOTIDINE 20 MG TAB PO SCH (08:39)
[2020-11-20] MEDS: allopurinoL 300 MG TAB PO SCH (08:39)
[2020-11-20] MEDS: MULTIVITAMINS/MINERALS THERAP 1 TAB PO SCH (08:39)
[2020-11-20] MEDS: POLYVINYL ALCOHOL OPHTH SOLN 15 ML(LIQUITEARS) OU SCH ×3 (08:40→22:09)
[2020-11-20] MEDS: MIRTAZAPINE 15 MG TAB PO SCH (08:41)
--- NOTE | 2020-11-20 10:24 | IPN ---
PROGRESS NOTE DATE: 11/20/2020 CHIEF COMPLAINT: Postoperative day 1 right hip hemiarthroplasty for femoral neck fracture. SUBJECTIVE: This 89-year-old male had a mechanical fall. I performed right hip cemented hemiarthroplasty for him last evening. He is doing well this morning. No overnight concerns from nursing staff. OBJECTIVE: Well appearing 89-year-old man. He has confusion at baseline but he appears brighter this morning. He answers questions reasonably well but is not oriented to time or place. His vital signs are stable. He is still on oxygen. The wound appears normal. Clean and dry, no drainage. Normal sensation and motor function, the foot is warm and well perfused. Postop radiograph taken of the right hip reveals the implant to be well fixed, well positioned, appropriate size with joint well reduced. Laboratory examination reveals hemoglobin 11.3 from 12.0 preoperatively. ASSESSMENT/PLAN: This 89-year-old man is doing well postoperative day 1 from right hip hemiarthroplasty. He will be mobilized as tolerated. For VTE prophylaxis I will discuss this with the Hospitalist as the patient has history of bleeding on Xarelto in the past.
--- NOTE | 2020-11-20 13:33 | IPNPDOC ---
Subjective Date Seen The patient was seen on 11/20/20. Subjective Chief Complaint/HPI Mr. Orozco is an 89 year old male from [facility] who had a mechanical fall and had subsequent right femoral neck fracture. He was taken to the OR for right hip hemiarthroplasty on 11/19/2020. He was seen this morning. Denies chest pain or dyspnea. He has dementia and poor memory, currently at baseline per nursing. Spoke with Orthopedic surgery. Recommended speaking with General surgery about rectal prolapse. Spoke with General surgery, recommending outpatient follow up. In the mean time, I will start the patient on short term Xarelto and plan to switch to Aspirin on discharge. Unable to do senior living Xarelto due to rectal bleeding. Will need to monitor for bleeding here. Otherwise, nursing noted he had trouble taking his pills and had trouble using utensils. Placed speech therapy eval and OT eval. Objective Physical Examination General Exam: Positive: Cooperative Eye Exam: Positive: EOMI; Negative: Sclera icteric ENT Exam: Positive: Atraumatic Chest Exam: Positive: Clear to auscultation Heart Exam: Positive: Rate Normal, Regular Rhythm Abdomen Exam: Positive: Normal bowel sounds, Soft; Negative: Tenderness Extremity Exam: Positive: Edema (mild bilateral pitting edema) Neuro Exam: Positive: Normal Speech Psych Exam: Positive: Mental status NL, Mood NL Assessment /Plan Assessment Mr. Orozco is an 89 year old male from [facility] who had a mechanical fall and had subsequent right femoral neck fracture. Orthopedic surgery, Dr. Connelly was contacted downstairs in the ED. Patient went to the OR on 11/19/2020 for right hip hemiarthroplasty. Will do short term Xarelto here and then switch to aspirin on discharge. Will need to monitor for GI bleed while here. Otherwise, spoke with General surgery about rectal prolapse. Recommending outpatient follow up. Plan/VTE VTE Prophylaxis Ordered?: Yes Plan 1. Right femoral neck fracture -Secondary to mechanical fall -Orthopedic surgery consulted, recommendations appreciated -Went to OR for right hip hemiarthroplasty on 11/19/2020 2. Atrial fibrillation, tachy asha syndrome s/p pacemaker -Amiodarone held, restart after surgery -Not on intermission coordinator anticoagulation due to GI bleed -Short term Xarelto while here, then transition to aspirin 3. Diastolic CHF -Not grossly fluid overloaded at this time -Holding diuretics due to poor oral intake and low blood pressure 4. CAD s/p CABG -Restart Coreg and atorvastatin after surgery 5. Hypothyroidism -Restart levothyroxine after surgery 6. BPH -Restart tamsulosin after surgery 7. Gout -Restart allopurinol after surgery 8. Anxiety/depression -Mirtazapine and Sertraline after surgery 9. GERD -Restart famotidine after surgery 10. DVT ppx -SCD and TEDs Disposition: Pending PT/OT evaluation VS, I&O, 24H, Fishbone Vital Signs/I&O Vital Signs Date Time Temp Pulse Resp B/P (MAP) Pulse Ox O2 Delivery O2 Flow Rate FiO2 11/20/20 10:00 98.3 80 17 107/58 (74) 97 Nasal Cannula 4.0 11/20/20 06:00 31 I&O- Last 24 Hours up to 6 AM 11/20/20 05:59 Intake Total 2402 ml Output Total 775 ml Balance 1627 ml Laboratory Data 24H LABS Laboratory Tests 2 11/20/20 06:22: Nucleated Red Blood Cells % (auto) 0.0, Anion Gap 6L, Glomerular Filtration Rate > 60.0, Calcium Level 8.4L CBC/BMP Laboratory Tests 11/20/20 06:22 SAMMI MANCERA 13, 2021 13:33
[2020-11-20] MEDS: RIVAROXABAN 10 MG TAB (XARELTO) PO SCH (17:11)
[2020-11-20] MEDS: ATORVASTATIN 10 MG TAB PO SCH (22:09)
[2020-11-20] MEDS: LORATADINE 10 MG TAB PO SCH (22:09)
[2020-11-20] MEDS: TAMSULOSIN 0.4 MG CAP PO SCH (22:09)
[2020-11-21] VITALS (7 sets, daily range): BP systolic 115–121; BP diastolic 64–66; O2SAT 93–97
[2020-11-21] MEDS: PERCOCET 5MG/325MG TAB PO PRN ×3 (04:08→17:28)
[2020-11-21] MEDS: LEVOTHYROXINE 125MCG TABLET (0.125MG) PO SCH (05:28)
[2020-11-21 06:57] LABS: HEMATOCRIT 34.3 % (42.0-52.0); MEAN CORPUSCULAR HEMOGLOBIN 30.8 pg (27.0-33.0); MEAN CORPUSCULAR HGB CONC 32.1 g/dl (32.0-36.5); MEAN CORPUSCULAR VOLUME 96.1 fl (80.0-96.0); RED BLOOD COUNT 3.57 10^6/uL (4.30-6.10); WHITE BLOOD COUNT 14.6 10^3/uL (4.0-10.0)
[2020-11-21 07:18] LABS: BLOOD UREA NITROGEN 29 MG/DL (7-18); CALCIUM LEVEL 8.8 MG/DL (8.8-10.2); CARBON DIOXIDE LEVEL 26 MEQ/L (21-32); CHLORIDE LEVEL 106 MEQ/L (98-107); CREATININE FOR GFR 1.01 MG/DL (0.70-1.30); GLOMERULAR FILTRATION RATE > 60.0 (>35); GLUCOSE, FASTING 148 MG/DL (70-100); POTASSIUM SERUM 4.5 MEQ/L (3.5-5.1); SODIUM LEVEL 139 MEQ/L (136-145)
[2020-11-21] MEDS: CARVedilol 3.125 MG TAB PO SCH ×2 (09:02→20:27)
[2020-11-21] MEDS: POLYVINYL ALCOHOL OPHTH SOLN 15 ML(LIQUITEARS) OU SCH ×3 (09:02→20:27)
[2020-11-21] MEDS: FAMOTIDINE 20 MG TAB PO SCH (09:03)
[2020-11-21] MEDS: AMIODARONE 200 MG TAB (PACERONE) PO SCH (09:03)
[2020-11-21] MEDS: SERTRALINE 100 MG TAB PO SCH (09:03)
[2020-11-21] MEDS: MULTIVITAMINS/MINERALS THERAP 1 TAB PO SCH (09:03)
[2020-11-21] MEDS: MIRTAZAPINE 15 MG TAB PO SCH (09:03)
[2020-11-21] MEDS: FERROUS SULFATE 325MG TAB PO SCH (09:03)
[2020-11-21] MEDS: allopurinoL 300 MG TAB PO SCH (09:03)
[2020-11-21] MEDS ORDERED: MIRALAX *UNIT DOSE* 17GM PACKET PO PRN (11:05)
[2020-11-21] MEDS ORDERED: MOM 30ML SUSPENSION UDC PO PRN (11:05)
[2020-11-21] MEDS: DOCUSATE SODIUM 100MG CAPSULE PO SCH ×2 (11:39→20:26)
--- NOTE | 2020-11-21 12:05 | IPNPDOC ---
Subjective Date Seen The patient was seen on 11/21/20. Subjective Chief Complaint/HPI Mr. Orozco is an 89 year old male from [facility] who had a mechanical fall and had subsequent right femoral neck fracture. He was taken to the OR for right hip hemiarthroplasty on 11/19/2020. This morning, he denies any chest pain or dyspnea. He was interested in sitting up for lunch. Nurse and physical therapy working to have him sit up for lunch. Objective Physical Examination General Exam: Positive: Cooperative Eye Exam: Positive: EOMI; Negative: Sclera icteric ENT Exam: Positive: Atraumatic Chest Exam: Positive: Clear to auscultation Heart Exam: Positive: Rate Normal, Regular Rhythm Abdomen Exam: Positive: Normal bowel sounds, Soft; Negative: Tenderness Extremity Exam: Positive: Edema (mild bilateral pitting edema) Neuro Exam: Positive: Normal Speech Psych Exam: Positive: Mental status NL, Mood NL Assessment /Plan Assessment Mr. Orozco is an 89 year old male from [facility] who had a mechanical fall and had subsequent right femoral neck fracture. Orthopedic surgery, Dr. Connelly was contacted downstairs in the ED. Patient went to the OR on 11/19/2020 for right hip hemiarthroplasty. Will do short term Xarelto here and then switch to aspirin on discharge. Will need to monitor for GI bleed while here. Otherwise, spoke with General surgery about rectal prolapse. Recommending outpatient follow up. Plan/VTE VTE Prophylaxis Ordered?: Yes Plan 1. Right femoral neck fracture -Secondary to mechanical fall -Orthopedic surgery consulted, recommendations appreciated -Went to OR for right hip hemiarthroplasty on 11/19/2020 2. Atrial fibrillation, tachy asha syndrome s/p pacemaker -Amiodarone held, restart after surgery -Not on assisted anticoagulation due to GI bleed -Short term Xarelto while here, then transition to aspirin 3. Diastolic CHF -Not grossly fluid overloaded at this time -Holding diuretics due to poor oral intake and low blood pressure 4. CAD s/p CABG -Restart Coreg and atorvastatin after surgery 5. Hypothyroidism -Restart levothyroxine after surgery 6. BPH -Restart tamsulosin after surgery 7. Gout -Restart allopurinol after surgery 8. Anxiety/depression -Mirtazapine and Sertraline after surgery 9. GERD -Restart famotidine after surgery 10. DVT ppx -SCD and TEDs Disposition: Possible return back to [facility] on Sunday VS, I&O, 24H, Fishbone Vital Signs/I&O Vital Signs Date Time Temp Pulse Resp B/P (MAP) Pulse Ox O2 Delivery O2 Flow Rate FiO2 11/21/20 11:23 16 11/21/20 09:02 83 118/65 11/21/20 09:00 3.0 11/21/20 09:00 96 Nasal Cannula 11/21/20 06:00 97.7 31 I&O- Last 24 Hours up to 6 AM 11/21/20 06:00 Intake Total 1700 ml Output Total 850 ml Balance 850 ml Laboratory Data 24H LABS Laboratory Tests 2 11/21/20 06:12: Nucleated Red Blood Cells % (auto) 0.0, Anion Gap 7L, Glomerular Filtration Rate > 60.0, Calcium Level 8.8 CBC/BMP Laboratory Tests 11/21/20 06:12 SAMMI MANCERA 14, 2021 12:05
[2020-11-21] MEDS: RIVAROXABAN 10 MG TAB (XARELTO) PO SCH (17:28)
[2020-11-21] MEDS: ACETAMINOPHEN TAB 650MG DOSE (2X325MG) PO PRN (20:26)
[2020-11-21] MEDS: LORATADINE 10 MG TAB PO SCH (20:27)
[2020-11-21] MEDS: TAMSULOSIN 0.4 MG CAP PO SCH (20:27)
[2020-11-21] MEDS: ATORVASTATIN 10 MG TAB PO SCH (20:27)
[2020-11-22] VITALS (7 sets, daily range): BP systolic 106–129; BP diastolic 57–69; O2SAT 94–96
[2020-11-22] MEDS: LEVOTHYROXINE 125MCG TABLET (0.125MG) PO SCH (05:33)
[2020-11-22 06:51] LABS: HEMATOCRIT 34.5 % (42.0-52.0); HEMOGLOBIN 11.1 g/dl (13.5-17.5); MEAN CORPUSCULAR HEMOGLOBIN 30.6 pg (27.0-33.0); MEAN CORPUSCULAR HGB CONC 32.2 g/dl (32.0-36.5); RED BLOOD COUNT 3.63 10^6/uL (4.30-6.10); WHITE BLOOD COUNT 12.6 10^3/uL (4.0-10.0)
[2020-11-22 07:17] LABS: BLOOD UREA NITROGEN 42 MG/DL (7-18); CALCIUM LEVEL 9.3 MG/DL (8.8-10.2); CARBON DIOXIDE LEVEL 31 MEQ/L (21-32); CHLORIDE LEVEL 101 MEQ/L (98-107); CREATININE FOR GFR 1.07 MG/DL (0.70-1.30); GLOMERULAR FILTRATION RATE > 60.0 (>35); GLUCOSE, FASTING 130 MG/DL (70-100); POTASSIUM SERUM 4.2 MEQ/L (3.5-5.1); SODIUM LEVEL 137 MEQ/L (136-145)
[2020-11-22] MEDS: PERCOCET 5MG/325MG TAB PO PRN (09:29)
[2020-11-22] MEDS: MULTIVITAMINS/MINERALS THERAP 1 TAB PO SCH (09:29)
[2020-11-22] MEDS: MIRTAZAPINE 15 MG TAB PO SCH (09:29)
[2020-11-22] MEDS: DOCUSATE SODIUM 100MG CAPSULE PO SCH ×2 (09:29→20:33)
[2020-11-22] MEDS: SERTRALINE 100 MG TAB PO SCH (09:29)
[2020-11-22] MEDS: AMIODARONE 200 MG TAB (PACERONE) PO SCH (09:29)
[2020-11-22] MEDS: POLYVINYL ALCOHOL OPHTH SOLN 15 ML(LIQUITEARS) OU SCH ×3 (09:30→20:35)
[2020-11-22] MEDS: CARVedilol 3.125 MG TAB PO SCH ×2 (09:30→20:34)
[2020-11-22] MEDS: FERROUS SULFATE 325MG TAB PO SCH (09:30)
[2020-11-22] MEDS: FAMOTIDINE 20 MG TAB PO SCH (09:30)
[2020-11-22] MEDS: MOM 30ML SUSPENSION UDC PO SCH (09:30)
[2020-11-22] MEDS: allopurinoL 300 MG TAB PO SCH (09:31)
--- NOTE | 2020-11-22 10:14 | IPN ---
PROGRESS NOTE DATE: 11/21/2020 CHIEF COMPLAINT: Post update to right hip hemiarthroplasty. HISTORY OF PRESENT ILLNESS: This 89-year-old man underwent right hip cemented hemiarthroplasty two days ago. [place] staying [place], [address]. No concerns from the nursing staff overnight. PHYSICAL EXAMINATION: Well-appearing 89-year-old man sitting upright. He appears well. No drainage from the wound. Dressing is in situ. The Prineo dressing. The wound edges look clean, dry, well-opposed. There is some slight ecchymosis. No warmth to the area. ASSESSMENT AND PLAN: This is an 89-year-old man can be weightbearing as tolerated. OK to shower over the top of the incision. Otherwise, keep it clean and dry. Dr. Good, the hospitalist, decided on Xarelto for now. Elected transitioning to a more mild anticoagulant in the long run due to history of rectal bleeding. In terms of the rectal prolapse, rectal surgery has recommended outpatient followup. Will continue to follow the patient while in hospital and appreciate the hospitalist service for their care and guidance. FRANKY
[2020-11-22] MEDS ORDERED: ISOVUE-370 76% 100ML VIAL As Ordered ONE (10:43)
--- NOTE | 2020-11-22 12:06 | REP ---
INDICATION: Hypoxia, recent hip surgery. COMPARISON: None. Chest CT with IV contrast dated 06/09/2018. TECHNIQUE: Chest CT with IV contrast, pulmonary artery CT angiography. FINDINGS: There are no emboli in the pulmonary trunk or central pulmonary arteries. There are no emboli in the pulmonary artery lobar segment branches. There are moderate bilateral pleural effusions. There is compression atelectasis in the lower lobes adjacent to the pleural effusions. Cardiac size is enlarged. There is no pericardial effusion. The thoracic aorta is unremarkable except for occasional calcified atheroma. There are bilateral pleural calcified plaques, as previously, compatible with asbestosis. There are ground-glass densities posteriorly in the right middle lobe and in the lingula compatible with atelectasis/infiltrate. The visualized upper abdominal contents are unremarkable. The 1.9 cm cyst identified laterally in the dome of the liver previously has decreased in size today measuring 0.8 cm. Sternotomy wires are again identified. IMPRESSION: No pulmonary emboli are identified. Moderate bilateral pleural effusions. Compression atelectasis of the lower lobes adjacent to the pleural effusions. Atelectasis posteriorly right middle lobe and lingula. Cardiomegaly. No pericardial effusion. The small hepatic cyst noted in the dome of the liver previously has decreased in size. Bilateral calcified pleural plaques, unchanged, compatible with asbestosis. <Electronically signed by Vladislav Jara > 11/22/20 [id number]
[2020-11-22] MEDS: RIVAROXABAN 10 MG TAB (XARELTO) PO SCH (16:50)
[2020-11-22] MEDS: ACETAMINOPHEN TAB 650MG DOSE (2X325MG) PO PRN (16:50)
[2020-11-22] MEDS ORDERED: FUROSEMIDE 40MG/4ML VIAL (J1940) IV SCH (17:00)
[2020-11-22 17:31] LABS: NT-PRO BNP 7673 PG/ML (<450)
--- NOTE | 2020-11-22 17:47 | IPNPDOC ---
Subjective Date Seen The patient was seen on 11/22/20. Subjective Chief Complaint/HPI Mr. Orozco is an 89 year old male from [facility] who had a mechanical fall and had subsequent right femoral neck fracture. He was taken to the OR for right hip hemiarthroplasty on 11/19/2020. This morning, he denies any chest pain or dyspnea, but he is requiring 3L of oxygen. Ordered CT angio since he had surgery. No PE, but did demonstrate pleural effusions. His lungs sound clear despite the pleural effusions. Ordered BNP which was elevated. Will start diuresis and ordered an echocardiogram. Objective Physical Examination General Exam: Positive: Cooperative Eye Exam: Positive: EOMI; Negative: Sclera icteric ENT Exam: Positive: Atraumatic Chest Exam: Positive: Clear to auscultation Heart Exam: Positive: Rate Normal, Regular Rhythm Abdomen Exam: Positive: Normal bowel sounds, Soft; Negative: Tenderness Extremity Exam: Positive: Edema (mild bilateral pitting edema) Neuro Exam: Positive: Normal Speech Psych Exam: Positive: Mental status NL, Mood NL Assessment /Plan Assessment Mr. Orozco is an 89 year old male from [facility] who had a mechanical fall and had subsequent right femoral neck fracture. Orthopedic surgery, Dr. Connelly was contacted downstairs in the ED. Patient went to the OR on 11/19/2020 for right hip hemiarthroplasty. Will do short term Xarelto here and then switch to aspirin on discharge. Will need to monitor for GI bleed while here. Otherwise, spoke with General surgery about rectal prolapse. Recommending outpatient follow up. Otherwise, patient has hypoxia requiring oxygen. CT chest demonstrates bilateral pleural effusions. Pro BNP elevated. Will start IV Lasix 40mg BID and order an echocardiogram. Plan/VTE VTE Prophylaxis Ordered?: Yes Plan 1. Right femoral neck fracture -Secondary to mechanical fall -Orthopedic surgery consulted, recommendations appreciated -Went to OR for right hip hemiarthroplasty on 11/19/2020 2. Acute decompensated diastolic CHF -Lungs sound clear, but patient requires 3L of oxygen -CT angio negative for clots, but demonstrates pleural effusions -Pro-BNP elevated -Start IV Lasix 40mg BID and ordered for echocardiogram 3. Atrial fibrillation, tachy asha syndrome s/p pacemaker -Continue Amiodarone -Not on long term acute care registered nurse anticoagulation due to GI bleed -Short term Xarelto while here, then transition to aspirin 4. CAD s/p CABG -Continue Coreg and atorvastatin 5. Hypothyroidism -Continue levothyroxine 6. BPH -Continue tamsulosin 7. Gout -Continue allopurinol 8. Anxiety/depression -Continue Mirtazapine and Sertraline 9. GERD -Continue famotidine 10. DVT ppx -Xarelto, then switch to Aspirin on discharge Disposition: Pending clinical improvement and weaning off oxygen. VS, I&O, 24H, Fishbone Vital Signs/I&O Vital Signs Date Time Temp Pulse Resp B/P (MAP) Pulse Ox O2 Delivery O2 Flow Rate FiO2 11/22/20 14:00 97.5 80 22 121/64 (83) 95 Nasal Cannula 2.5 11/21/20 06:00 31 I&O- Last 24 Hours up to 6 AM 11/22/20 06:00 Intake Total 3050 ml Output Total 300 ml Balance 2750 ml Laboratory Data 24H LABS Laboratory Tests 2 11/22/20 06:14: Nucleated Red Blood Cells % (auto) 0.0, Anion Gap 5L, Glomerular Filtration Rate > 60.0, Calcium Level 9.3, UD-Fkx-[id number]-Type Natriuretic Peptide 7673H CBC/BMP Laboratory Tests 11/22/20 06:14 Microbiology Microbiology 11/22/20 Respiratory Virus Panel (PCR) ([facility]) - Final, Complete SAMMI MANCERA 15, 2021 17:47
[2020-11-22] MEDS: TAMSULOSIN 0.4 MG CAP PO SCH (20:33)
[2020-11-22] MEDS: ATORVASTATIN 10 MG TAB PO SCH (20:33)
[2020-11-22] MEDS: LORATADINE 10 MG TAB PO SCH (20:34)
[2020-11-23] MEDS: LEVOTHYROXINE 125MCG TABLET (0.125MG) PO SCH (05:43)
[2020-11-23 06:00] VITALS: BP 112/63
[2020-11-23 06:03] LABS: HEMATOCRIT 31.1 % (42.0-52.0); HEMOGLOBIN 9.9 g/dl (13.5-17.5); MEAN CORPUSCULAR HGB CONC 31.8 g/dl (32.0-36.5); MEAN CORPUSCULAR VOLUME 94.2 fl (80.0-96.0); PLATELET COUNT, AUTOMATED 153 10^3/uL (150-450); WHITE BLOOD COUNT 11.8 10^3/uL (4.0-10.0)
[2020-11-23 06:25] LABS: BLOOD UREA NITROGEN 44 MG/DL (7-18); CALCIUM LEVEL 8.7 MG/DL (8.8-10.2); CARBON DIOXIDE LEVEL 30 MEQ/L (21-32); CHLORIDE LEVEL 100 MEQ/L (98-107); GLOMERULAR FILTRATION RATE > 60.0 (>35); GLUCOSE, FASTING 127 MG/DL (70-100); POTASSIUM SERUM 4.5 MEQ/L (3.5-5.1); SODIUM LEVEL 136 MEQ/L (136-145)
[2020-11-23] MEDS: MOM 30ML SUSPENSION UDC PO SCH (08:35)
[2020-11-23] MEDS: DOCUSATE SODIUM 100MG CAPSULE PO SCH ×2 (08:36→20:22)
[2020-11-23] MEDS: SERTRALINE 100 MG TAB PO SCH (08:36)
[2020-11-23] MEDS: FERROUS SULFATE 325MG TAB PO SCH (08:36)
[2020-11-23] MEDS: MULTIVITAMINS/MINERALS THERAP 1 TAB PO SCH (08:36)
[2020-11-23] MEDS: FAMOTIDINE 20 MG TAB PO SCH (08:36)
[2020-11-23] MEDS: allopurinoL 300 MG TAB PO SCH (08:36)
[2020-11-23] MEDS: MIRTAZAPINE 15 MG TAB PO SCH (08:37)
[2020-11-23] MEDS: POLYVINYL ALCOHOL OPHTH SOLN 15 ML(LIQUITEARS) OU SCH ×3 (08:38→20:22)
[2020-11-23] MEDS: AMIODARONE 200 MG TAB (PACERONE) PO SCH (08:38)
[2020-11-23] MEDS: CARVedilol 3.125 MG TAB PO SCH ×2 (08:40→20:23)
--- NOTE | 2020-11-23 08:52 | IPNPDOC ---
Date Seen The patient was seen on 11/23/20. Progress Note HOSPITALIST PROGRESS NOTE DICTATED If note is needed urgently, pls have community aide call hypertype to stat transcribe Dr. Torres's progress note job #[id number] VS, I&O, 24H, Fishbone Vital Signs/I&O Vital Signs Date Time Temp Pulse Resp B/P (MAP) Pulse Ox O2 Delivery O2 Flow Rate FiO2 11/23/20 06:00 98.4 84 18 112/63 (79) 94 Nasal Cannula 3.0 11/21/20 06:00 31 I&O- Last 24 Hours up to 6 AM 11/23/20 06:00 Intake Total 1000 ml Output Total 1320 ml Balance -320 ml Laboratory Data 24H LABS Laboratory Tests 2 11/23/20 05:45: Nucleated Red Blood Cells % (auto) 0.2H, Anion Gap 6L, Glomerular Filtration Rate > 60.0, Calcium Level 8.7L CBC/BMP Laboratory Tests 11/23/20 05:45 Microbiology Microbiology 11/22/20 Respiratory Virus Panel (PCR) ([facility]) - Final, Complete MEGAN TORRES MD Nov 23, 2020 08:00
[2020-11-23] MEDS: FUROSEMIDE 20MG/2ML VIAL (J1940) IV SCH ×2 (08:53→18:27)
[2020-11-23] MEDS ORDERED: PERCOCET 5MG/325MG TAB PO ONE (09:00)
--- NOTE | 2020-11-23 09:55 | IPN ---
PROGRESS NOTE DATE: 11/23/2020 SUBJECTIVE: Patient complains of pain this morning, but could not give a pain scale. He complains of shortness of breath especially when he takes a deep breath. Without fever or chills or cough, no nausea or vomiting, epigastric pain, feeling of impending doom. He denies any chest tightness, heaviness, pressure. Has not been ambulating yet this morning. No other issues overnight. Patient was on Lasix twice a day, but had been positive balance. Weight has not been checked daily. Admission weight was 70.9 kg and current weight is 72.2 kg. OBJECTIVE: Vitals: Temperature 98.4, pulse 84, respiratory rate 18, blood pressure 112/63, 94% on 3 liters nasal cannula. General: Patient is awake, alert, oriented to self, answers questions appropriately. HEENT: No use of respiratory accessory muscles, no pursed lips, currently at 45 degree angle on head of bed elevation. Anicteric, no jaundice. Slight pallor. Lungs: Clear to auscultation, no wheezing or rales. Heart: S1 and S2 regular rate and rhythm. Abdomen: Soft, nontender, nondistended. Extremities: Post-op right hip, extremities trace edema. LABORATORY DATA: White count 11.8, hemoglobin 9.9, hematocrit 30, platelet count 153. Sodium 136, potassium 4.5, chloride 100, bicarb 30, BUN 44, creatinine 1, glucose 127. Respiratory panel negative for Coronavirus 19. IMAGING STUDIES: CT angio 11/22/2020: No pulmonary embolism, moderate bilateral pleural effusions, compressive atelectasis of the lower lobes adjacent to pleural effusions, atelectasis posteriorly right middle lobe and lingula, cardiomegaly, no pericardial effusion, decreased small hepatic cyst noted in the dome of the liver, bilateral calcified pleural plaques unchanged, compatible with asbestosis. ASSESSMENT AND PLAN: This is an 89-year-old male with history of asbestosis, congestive heart failure, diastolic dysfunction grade 2, CAD, chronic atrial fibrillation was not on anticoagulation, tachybrady syndrome status post pacemaker, rectal prolapse status post repair with rectal bleeding while he had been on Xarelto previously, anxiety/depression, reflux, hypertension, dyslipidemia, BPH and gout admitted on November 19, 2020 after an unwitnessed fall at [facility] where he resides while walking in the hallway with his walker turned around and fell while turning. Patient was found to have a right femoral fracture status post mechanical fall. Active issues are as follows: 1. Mechanical fall status post right femoral fracture, status post right hemiarthroplasty on 11/19/2020, currently on Xarelto despite history of rectal bleeding and rectal prolapse: He does appear to be slightly anemic, but no overt GI bleed. We will transition to aspirin once he is ready for discharge back to the halfway. Patient does not currently require RBC transfusion, but he has been typed and crossed and is A-. He currently does not have symptomatic anemia. 2. Acute decompensated congestive heart failure, diastolic dysfunction with preserved systolic function: Patient has not been on fluid restriction or daily weights. He has been positive balance since admission. His current weight is 72.2 kg from admission weight of 70.91 kg. Patient's Lasix will be changed to 20 mg I.V. q8h with 1.8 liter fluid restriction as well as daily weights to monitor patient's fluid status. Echocardiogram has already been ordered. He does not complain of any signs of acute coronary syndrome. Troponin was 0.02. Patient will be kept on strict I's&O's for now, daily weights. 3. History of chronic atrial fibrillation: Had not been on anticoagulation prior to coming into the hospital. He is status post pacemaker placement. Patient is currently sinus rhythm while on amiodarone, was not on any termite inspector anticoagulation due to history of rectal prolapse and rectal bleed, currently on short term Xarelto to prevent DVT post-operatively and will transition to aspirin after 5 days. After hospital transfer back to the halfway. 4. CAD status post CABG: Continued on atorvastatin and Coreg. Due to current Lasix been used for diuresis his Coreg will be held for systolic pressure less than 140. His amiodarone is continued for chronic atrial fibrillation and currently in sinus rhythm. 5. Hypothyroidism: Stable on Synthroid which has been resumed. 6. History of BPH: On tamsulosin. 7. History of gout: On chronic allopurinol. 8. Anxiety/depression: On mirtazapine and sertraline. 9. History of GERD: On famotidine. 10. History of rectal bleeding and rectal prolapse, currently with slight anemia: We will continue to monitor on Xarelto. May need to discontinue Xarelto and just keep on aspirin if patient continues to be anemic. 11. Disposition: Patient needs to be net negative balance with decreasing weight. We will repeat chest x-ray after diuresis. MTDD
[2020-11-23 14:00] VITALS: BP 111/67
[2020-11-23] MEDS: PERCOCET 5MG/325MG TAB PO PRN (16:09)
[2020-11-23] MEDS: RIVAROXABAN 10 MG TAB (XARELTO) PO SCH (18:27)
[2020-11-23] MEDS: TAMSULOSIN 0.4 MG CAP PO SCH (20:22)
[2020-11-23] MEDS: ATORVASTATIN 10 MG TAB PO SCH (20:22)
[2020-11-23] MEDS: LORATADINE 10 MG TAB PO SCH (20:23)
[2020-11-23 22:00] VITALS: BP 141/70
[2020-11-23 22:10] VITALS: O2SAT 96
[2020-11-23] MEDS: ACETAMINOPHEN TAB 650MG DOSE (2X325MG) PO PRN (23:09)
[2020-11-24] MEDS: FUROSEMIDE 20MG/2ML VIAL (J1940) IV SCH ×3 (01:00→14:03)
[2020-11-24] MEDS: LEVOTHYROXINE 125MCG TABLET (0.125MG) PO SCH (05:52)
[2020-11-24 06:00] VITALS: BP 139/81
[2020-11-24] MEDS ORDERED: PERCOCET 5MG/325MG TAB PO ONE (08:20)
--- NOTE | 2020-11-24 08:46 | REP ---
INDICATION: SOB. COMPARISON: Chest CT dated 11/22/2020 and portable chest dated 11/19/2020. TECHNIQUE: Portable AP chest with the patient semi upright. FINDINGS: There are bilateral pleural effusions. There is mild interstitial coarsening. Cardiac size is upper normal. There are sternotomy wires and dual chamber pacemaker. These are unchanged. The myrtle, mediastinum, and skeletal structures are unremarkable. There are calcific pleural plaques on the right, unchanged. IMPRESSION: Bilateral pleural effusions. Mild interstitial coarsening. Cardiac size upper normal. Sternotomy wires and pacemaker are unchanged. <Electronically signed by Vladislav Jara > 11/24/20 0804
[2020-11-24] MEDS: MULTIVITAMINS/MINERALS THERAP 1 TAB PO SCH (08:48)
[2020-11-24] MEDS: FERROUS SULFATE 325MG TAB PO SCH (08:48)
[2020-11-24] MEDS: allopurinoL 300 MG TAB PO SCH (08:48)
[2020-11-24] MEDS: DOCUSATE SODIUM 100MG CAPSULE PO SCH ×2 (08:48→21:32)
[2020-11-24] MEDS: SERTRALINE 100 MG TAB PO SCH (08:48)
[2020-11-24 08:49] VITALS: BP 93/67
[2020-11-24] MEDS: FAMOTIDINE 20 MG TAB PO SCH (08:49)
[2020-11-24] MEDS: MIRTAZAPINE 15 MG TAB PO SCH (08:49)
[2020-11-24] MEDS: CARVedilol 3.125 MG TAB PO SCH (08:49)
[2020-11-24] MEDS: POLYVINYL ALCOHOL OPHTH SOLN 15 ML(LIQUITEARS) OU SCH ×3 (08:49→21:32)
[2020-11-24] MEDS: AMIODARONE 200 MG TAB (PACERONE) PO SCH (08:49)
[2020-11-24] MEDS: MOM 30ML SUSPENSION UDC PO SCH (08:49)
--- NOTE | 2020-11-24 10:09 | IPNPDOC ---
Date Seen The patient was seen on 11/24/20. Progress Note Hospitalist progress note dictated If needed urgently, pls call hypertype at [phone] to STAT transcribe progress note dictated by Dr. Torres, job #[id number]. VS, I&O, 24H, Fishbone Vital Signs/I&O Vital Signs Date Time Temp Pulse Resp B/P (MAP) Pulse Ox O2 Delivery O2 Flow Rate FiO2 11/24/20 09:21 20 94 Nasal Cannula 2.0 11/24/20 08:49 82 93/67 11/24/20 06:00 98.4 11/21/20 06:00 31 I&O- Last 24 Hours up to 6 AM 11/24/20 06:00 Intake Total 1260 ml Output Total 1250 ml Balance 10 ml Laboratory Data Microbiology Microbiology 11/22/20 Respiratory Virus Panel (PCR) ([facility]) - Final, Complete MEGAN TORRES MD Nov 24, 2020 10:09
--- NOTE | 2020-11-24 10:48 | ECHO ---
DATE OF PROCEDURE: 11/23/2020 Age: 89 Gender: Male Height: 175 cm Weight: 72 kg REFERRING PHYSICIAN: Merlin Good DO. INDICATION: Congestive heart failure. MEASUREMENTS: IVS 1.6 cm LV 4.3 cm LVPW 1.3 cm LA 4.6 cm Aorta 3.3 cm IVC 2.7 cm Mitral E wave velocity 81 A wave 28 E prime septal 3.3 E prime lateral 7.1 FINDINGS: This study is of very limited technical quality with difficult visualization. It appears that patient is in sinus rhythm with wide QRS complex, I cannot rule out ventricular pacing. Left ventricle is normal size. Moderate left ventricular hypertrophy is noted. Overall likely normal systolic function with estimated EF around 60%. I do not appreciate distinct segmental wall motion abnormalities based on limited views. Right ventricle appears at least mildly dilated. There is severe biatrial enlargement. Aortic valve is heavily sclerotic, and there is some restriction of cusp mobility. There are mild degenerative abnormalities of mitral valve with mitral annular calcifications. Tricuspid valve appears normal. Pulmonic valve was also reasonably well seen and appeared normal. There is an echo artifact in the right-sided heart chambers corresponding to pacemaker lead. No pericardial effusion is noted. Inferior vena cava is markedly dilated, and there is no appreciable collapse with inspiration indicative of very high central venous pressure. Doppler interrogation reveals no aortic insufficiency and mild stenosis with mean gradient 12 mmHg. There is mild mitral insufficiency and mild tricuspid insufficiency. Calculated pulmonary artery pressure is minimum in the mid 50s corresponding to moderate to moderately severe pulmonary hypertension. Mild pulmonic insufficiency is seen. Mitral inflow pattern and tissue Doppler imaging of mitral annulus reveals pseudonormal filling pattern indicative of high LVEDP. CONCLUSIONS: 1. Study is of limited technical quality with difficult visualization. Underlying sinus rhythm with wide QRS complex, suspect ventricular pacing. 2. Normal LV size with moderate LVH and grossly preserved LV systolic function. Grade 2 diastolic dysfunction. 3. Dilated right ventricle. 4. Aortic sclerosis resulting in mild stenosis. 5. Mild mitral and tricuspid insufficiency. 6. Very high central venous pressure and at least moderate and probably moderately severe pulmonary hypertension. MTDD
[2020-11-24 11:00] LABS: HEMATOCRIT 32.1 % (42.0-52.0); HEMOGLOBIN 10.1 g/dl (13.5-17.5); MEAN CORPUSCULAR HEMOGLOBIN 29.9 pg (27.0-33.0); MEAN CORPUSCULAR HGB CONC 31.5 g/dl (32.0-36.5); PLATELET COUNT, AUTOMATED 196 10^3/uL (150-450); RED BLOOD COUNT 3.38 10^6/uL (4.30-6.10); WHITE BLOOD COUNT 9.5 10^3/uL (4.0-10.0)
[2020-11-24 11:30] LABS: BLOOD UREA NITROGEN 41 MG/DL (7-18); CALCIUM LEVEL 8.6 MG/DL (8.8-10.2); CARBON DIOXIDE LEVEL 34 MEQ/L (21-32); CHLORIDE LEVEL 100 MEQ/L (98-107); GLOMERULAR FILTRATION RATE > 60.0 (>35); GLUCOSE, FASTING 116 MG/DL (70-100); POTASSIUM SERUM 4.4 MEQ/L (3.5-5.1); SODIUM LEVEL 137 MEQ/L (136-145)
--- NOTE | 2020-11-24 13:11 | IPN ---
PROGRESS NOTE DATE: 11/24/2020 SUBJECTIVE: Patient was seen and examined at the bedside. Chart has been reviewed. Patient says "I don't feel well." Complains of some shortness of breath without chest pain, pressure or tightness, lightheadedness or dizziness. Complains of pain at the right hip status post replacement, generalized weakness. No chest pain, pressure or tightness, lightheadedness or dizziness. Has not ambulated out of bed this morning yet, eating his breakfast at the bedside with no signs of coughing or worsening aspiration. OBJECTIVE: Vital signs: Temperature 98.4, pulse 80, respiratory 20, blood pressure 139/81, 80% on 2 liters nasal cannula. General: Awake, alert, oriented to person and place, able to speak in full sentences, very slow to speak and [id number]. No use of respiratory accessory muscles. HEENT: Moist mucous membranes. Neck: Positive JVD. No cervical lymphadenopathy or thyromegaly. No carotid bruits. Lungs: Diminished, bibasilar crackles at the bases. Heart: S1 and S2 sinus rhythm, no murmurs, rubs or gallops. Abdomen: Soft, nontender, nondistended, positive bowel sounds. Extremities: Trace edema bilateral lower extremities, post-op right hip. Input and output overnight: Input 1320, output 1450, negative 130; from midnight 60 in, output 200, negative 140. LABORATORY DATA: White count 11.8, hemoglobin 9.9, hematocrit 31, platelet count 153 from yesterday; today's labs are still pending. Creatinine is pending. ASSESSMENT: This 89-year-old male with history of chronic afib, diastolic heart failure, CAD, CABG, BPH, hypothyroidism, gout, anxiety/depression, reflux, history of rectal prolapse with rectal bleed presented after a mechanical fall with a right femoral fracture. IMPRESSIONS/PLANS: 1. Right femoral fracture status post right hemiarthroplasty on 11/19/2020, on Xarelto despite history of rectal bleed and rectal prolapse, slightly anemic, but no overt GI bleed: Would change to oral aspirin once patient is ready for hospital discharge. Recheck CBC serially. If continued drop in hemoglobin and requires RBC transfusion we will discontinue patient's Xarelto and start on aspirin. Transfuse as needed. Post-op management per orthopedic surgery. PT/OT has been consulted. Activity as tolerated, fall precautions. 2. Acute decompensated congestive heart failure, diastolic dysfunction with preserved systolic function: Patient had been net negative until yesterday. He is now being transitioned to every 4 hours Lasix with holding parameters for elevated creatinine and hypotension. He remained positive fluid balance previously now we will keep on a fluid restriction, strict I's and O's and monitor for worsening azotemia. Echocardiogram has been completed, but there is currently no report. 3. Chronic atrial fibrillation: Not on anticoagulation due to history of rectal bleed from rectal prolapse. Currently on Xarelto as an inpatient and will transition to aspirin as outpatient. Rate controlled and sinus rhythm on amiodarone. 4. History of CAD, CABG currently with acute decompensate diastolic heart failure: Troponins were unremarkable. No acute ischemic cause for patient's sudden decompensation. Continue on home medications with holding parameters. 5. Hypothyroidism: On Synthroid. 6. BPH: On tamsulosin. 7. Gout: On allopurinol. 8. Anxiety/depression: On mirtazapine and sertraline. 9. Gastroesophageal reflux: On famotidine. 10. History of rectal bleed and rectal prolapse with slight anemia: Monitor for GI bleed. We will need to hold off on Xarelto if patient continues to be anemic with overt GI bleed and transition to aspirin for DVT prophylaxis. 11. Disposition: Patient remains fluid overloaded, will need further diuresis over the next 1-2 days. MTDD
[2020-11-24 14:00] VITALS: BP 146/87
[2020-11-24] MEDS: PERCOCET 5MG/325MG TAB PO PRN (14:48)
[2020-11-24 16:18] LABS: BLOOD UREA NITROGEN 41 MG/DL (7-18); CALCIUM LEVEL 8.6 MG/DL (8.8-10.2); CARBON DIOXIDE LEVEL 31 MEQ/L (21-32); CHLORIDE LEVEL 101 MEQ/L (98-107); CREATININE FOR GFR 0.93 MG/DL (0.70-1.30); GLOMERULAR FILTRATION RATE > 60.0 (>35); GLUCOSE, FASTING 126 MG/DL (70-100); SODIUM LEVEL 138 MEQ/L (136-145)
[2020-11-24] MEDS: FUROSEMIDE injection 250 MG in D5W 225 ML IV SCH (17:13)
[2020-11-24] MEDS: RIVAROXABAN 10 MG TAB (XARELTO) PO SCH (17:13)
[2020-11-24] MEDS: TAMSULOSIN 0.4 MG CAP PO SCH (21:31)
[2020-11-24] MEDS: LORATADINE 10 MG TAB PO SCH (21:32)
[2020-11-24] MEDS: ATORVASTATIN 10 MG TAB PO SCH (21:32)
[2020-11-24 22:00] VITALS: BP 119/67
[2020-11-25] MEDS: LEVOTHYROXINE 125MCG TABLET (0.125MG) PO SCH (05:38)
[2020-11-25 06:00] VITALS: BP 128/62
--- NOTE | 2020-11-25 08:08 | IPNPDOC ---
Date Seen The patient was seen on 11/25/20. Progress Note Hospitalist progress note dictated. If note is needed urgently, pls call medical records and have hypertype STAT transcribe Dr. Torres's Progress note . VS, I&O, 24H, Fishbone Vital Signs/I&O Vital Signs Date Time Temp Pulse Resp B/P (MAP) Pulse Ox O2 Delivery O2 Flow Rate FiO2 11/25/20 06:00 97.6 82 20 128/62 (84) 97 Nasal Cannula 2.0 11/21/20 06:00 31 I&O- Last 24 Hours up to 6 AM 11/25/20 06:00 Intake Total 1540 ml Output Total 2175 ml Balance -635 ml Laboratory Data 24H LABS Laboratory Tests 2 11/24/20 10:37: Nucleated Red Blood Cells % (auto) 0.0, Anion Gap 3L, Glomerular Filtration Rate > 60.0, Calcium Level 8.6L 11/24/20 15:38: Anion Gap 6L, Glomerular Filtration Rate > 60.0, Calcium Level 8.6L CBC/BMP Laboratory Tests 11/24/20 10:37 11/24/20 15:38 Microbiology Microbiology 11/22/20 Respiratory Virus Panel (PCR) ([facility]) - Final, Complete MEGAN TORRES MD Nov 25, 2020 08:08
[2020-11-25 08:38] LABS: HEMATOCRIT 33.8 % (42.0-52.0); HEMOGLOBIN 10.7 g/dl (13.5-17.5); MEAN CORPUSCULAR HEMOGLOBIN 29.6 pg (27.0-33.0); MEAN CORPUSCULAR HGB CONC 31.7 g/dl (32.0-36.5); MEAN CORPUSCULAR VOLUME 93.6 fl (80.0-96.0); PLATELET COUNT, AUTOMATED 220 10^3/uL (150-450); RED BLOOD COUNT 3.61 10^6/uL (4.30-6.10); WHITE BLOOD COUNT 10.7 10^3/uL (4.0-10.0)
[2020-11-25 08:53] LABS: BLOOD UREA NITROGEN 36 MG/DL (7-18); CALCIUM LEVEL 8.2 MG/DL (8.8-10.2); CARBON DIOXIDE LEVEL 35 MEQ/L (21-32); CHLORIDE LEVEL 98 MEQ/L (98-107); CREATININE FOR GFR 0.99 MG/DL (0.70-1.30); GLOMERULAR FILTRATION RATE > 60.0 (>35); GLUCOSE, FASTING 153 MG/DL (70-100); MAGNESIUM LEVEL 2.3 MG/DL (1.8-2.4); POTASSIUM SERUM 3.7 MEQ/L (3.5-5.1); SODIUM LEVEL 139 MEQ/L (136-145)
[2020-11-25] MEDS: MOM 30ML SUSPENSION UDC PO SCH (10:09)
[2020-11-25] MEDS: allopurinoL 300 MG TAB PO SCH (10:09)
[2020-11-25] MEDS: SERTRALINE 100 MG TAB PO SCH (10:09)
[2020-11-25] MEDS: FAMOTIDINE 20 MG TAB PO SCH (10:10)
[2020-11-25] MEDS: AMIODARONE 200 MG TAB (PACERONE) PO SCH (10:10)
[2020-11-25] MEDS: MIRTAZAPINE 15 MG TAB PO SCH (10:10)
[2020-11-25] MEDS: DOCUSATE SODIUM 100MG CAPSULE PO SCH ×2 (10:10→20:11)
[2020-11-25] MEDS: ACETAMINOPHEN TAB 650MG DOSE (2X325MG) PO PRN (10:10)
[2020-11-25] MEDS: POLYVINYL ALCOHOL OPHTH SOLN 15 ML(LIQUITEARS) OU SCH ×3 (10:11→20:12)
[2020-11-25] MEDS: FERROUS SULFATE 325MG TAB PO SCH (10:11)
[2020-11-25] MEDS: MULTIVITAMINS/MINERALS THERAP 1 TAB PO SCH (10:11)
--- NOTE | 2020-11-25 10:28 | REP ---
INDICATION: chf check resolution. COMPARISON: Comparison portable chest x-ray November 24, 2020. TECHNIQUE: Portable upright AP chest radiograph. FINDINGS: Patient is status post prior median sternotomy. Bipolar pacemaker remains in the enlarged heart unchanged. Oxygen delivery tubing and monitoring electrodes are present. Flow relatively low level of inspiration with bibasilar discoid atelectatic changes. No significant pleural effusion is evident.. IMPRESSION: Cardiomegaly with pacemaker. Bibasilar platelike atelectasis. No evidence of pleural effusion or pulmonary edema.. <Electronically signed by Antonio Pozo > 11/25/20 1022
--- NOTE | 2020-11-25 12:28 | IPN ---
PROGRESS NOTE DATE: 11/25/2020 SUBJECTIVE: Patient seen and examined at the bedside. Chart has been reviewed. Overnight, the patient diuresed 1.5 liters out and was negative 100 mL. Current weight is 76.2 kg, admission weight was 70.91 kg. He denies any chest pain, pressure, tightness, or shortness of breath. This morning, he appears to be much more comfortable, eating his breakfast with associate director of nursing at the bedside. No signs of choking or aspiration. No fever or chills. No cough overnight. The patient continues to have discomfort at the right hip, but evaluated by orthopedic surgeon Dr. Connelly felt to be stable. The patient continues to have lower extremity edema, but slightly improved from yesterday. OBJECTIVE: VITAL SIGNS: Temperature 97.6, pulse 82, respiratory rate 20, blood pressure 128/62, 97% on 2 liters nasal cannula. GENERAL: Awake, alert, and oriented to himself. Answers questions slowly. Very hard of hearing, but appropriate. No use of respiratory accessory muscles. Slight JVD. No thyromegaly. No cervical lymphadenopathy. Moist mucous membranes. LUNGS: Diminished, but fine crackles at the bases. HEART: S1, S2. Sinus rhythm. ABDOMEN: Soft, nontender, and nondistended. Positive bowel sounds x4 quadrants. EXTREMITIES: Positive pitting edema to the sacrum. Right hip postop changes. LABORATORY DATA: On 11/25/2020, CBC, metabolic panel, ionized calcium, and magnesium are all still pending. Respiratory panel is negative. IMAGING STUDIES: Chest x-ray 11/24/2020, bilateral pleural effusions. Mild interstitial coarsening. Cardiac size is upper normal. Sternotomy wires and pacemaker are unchanged. ASSESSMENT/PLAN: This is an 89-year-old male with history of chronic AFib, diastolic heart failure, coronary artery disease (CAD), coronary artery bypass grafting (CABG), BPH, hypothyroidism, gout, anxiety, depression, reflux, rectal prolapse with rectal bleed who presented to [facility] after a mechanical fall with a new right femoral fracture. IMPRESSION: 1. Right femoral fracture status post right hemiarthroplasty on 11/19/2020, on Xarelto despite history of rectal bleed and rectal prolapse. Slightly anemic, but no indication for red blood cells (RBC) transfusion. We are checking CBC serially. Transfuse as needed if hemoglobin is less than 8 or becomes symptomatic. Postoperative management per orthopedic surgery. The patient is to be transitioned to aspirin at hospital discharge. 2. Acute decompensated congestive heart failure (CHF), diastolic dysfunction with preserved systolic ejection fraction. The patient was net negative, has been changed to Lasix intravenous drip due to episodes of low blood pressure with boluses of Lasix. Patient still remains in positive fluid balance with a 2 kg weight gain from admission until now. Echo has been reviewed. He is kept on strict I&Os (intake and output) daily with a 1.8 liter fluid restriction. 3. Chronic atrial fibrillation not on anticoagulation due to history of rectal bleed from rectal prolapse. Currently on Xarelto as inpatient. Will transition to aspirin once the patient is discharged from the hospital. He is currently rate controlled in sinus rhythm on amiodarone. 4. History of coronary artery disease (CAD) and coronary artery bypass grafting (CABG) with acute decompensated diastolic heart failure. Troponins are unremarkable with no acute ischemia. Continue on home medications with holding parameters. 5. Hypothyroidism on Synthroid. 6. BPH on Tamsulosin. 7. Gout on allopurinol. 8. Anxiety and depression on mirtazapine and sertraline. 9. Reflux on famotidine. 10. History of rectal bleed and rectal prolapse with anemia not requiring red blood cells (RBC) transfusion. DISPOSITION: He remains fluid overloaded. We will continue with Lasix drip for now. May increase to 10 mL/hour if the patient's creatinine is stable to a net negative goal daily. Continue with daily weight. MTDD
[2020-11-25 14:00] VITALS: BP 116/65
[2020-11-25] MEDS: PERCOCET 5MG/325MG TAB PO PRN (15:20)
--- NOTE | 2020-11-25 16:29 | IPN ---
PROGRESS NOTE DATE: 11/25/2020 CHIEF COMPLAINT: Postop day approximately six right hip hemiarthroplasty. HISTORY OF PRESENT ILLNESS: This 89-year-old man underwent right hip hemiarthroplasty. He is doing well [facility] the [facility] [address] [facility] I was called yesterday evening due to concern from the nurse on that day due to redness around the incision, no drainage, and no need for dressing changes. No constitutional symptoms. No fevers. The nursing staff on this morning has reported no overnight drainage, fever, chills, constitutional symptoms, spreading redness, or concern at the incision. PHYSICAL EXAMINATION: Well-appearing 89-year-old man. He is able to follow commands. He is a little bit hard of hearing. In terms of the right hip incision, it appears clean and dry. Prineo dressing was in situ. There was no drainage. Wound edges appear well opposed. There is very mild erythema that has been present since the surgery. Normal sensation and motor function of the foot. The foot is warm and well perfused. LABORATORY DATA: His white blood cell count appears to be trending downwards over the last few days. ASSESSMENT AND PLAN: This 89-year-old man postop from right hip hemiarthroplasty is doing reasonably well. I am not concerned that he has developed a postop wound infection, although this is certainly in the differential. Will continue to monitor him, but appears stable since surgery with trending downward white count and no other symptoms.
[2020-11-25] MEDS: FUROSEMIDE injection 250 MG in D5W 225 ML IV SCH (16:51)
[2020-11-25] MEDS: RIVAROXABAN 10 MG TAB (XARELTO) PO SCH (17:53)
[2020-11-25] MEDS: TAMSULOSIN 0.4 MG CAP PO SCH (20:11)
[2020-11-25] MEDS: ATORVASTATIN 10 MG TAB PO SCH (20:12)
[2020-11-25] MEDS: LORATADINE 10 MG TAB PO SCH (20:12)
[2020-11-25 22:00] VITALS: BP 117/67
[2020-11-26] MEDS: PERCOCET 5MG/325MG TAB PO PRN (00:13)
[2020-11-26] MEDS: LEVOTHYROXINE 125MCG TABLET (0.125MG) PO SCH (05:50)
[2020-11-26] MEDS ORDERED: ECOT81TA5 PO (07:19)
[2020-11-26 07:43] LABS: HEMATOCRIT 34.1 % (42.0-52.0); HEMOGLOBIN 11.1 g/dl (13.5-17.5); MEAN CORPUSCULAR HEMOGLOBIN 30.4 pg (27.0-33.0); MEAN CORPUSCULAR HGB CONC 32.6 g/dl (32.0-36.5); MEAN CORPUSCULAR VOLUME 93.4 fl (80.0-96.0); PLATELET COUNT, AUTOMATED 257 10^3/uL (150-450); RED BLOOD COUNT 3.65 10^6/uL (4.30-6.10); WHITE BLOOD COUNT 10.2 10^3/uL (4.0-10.0)
[2020-11-26 08:22] LABS: BLOOD UREA NITROGEN 34 MG/DL (7-18); CALCIUM LEVEL 8.3 MG/DL (8.8-10.2); CARBON DIOXIDE LEVEL 37 MEQ/L (21-32); CHLORIDE LEVEL 97 MEQ/L (98-107); CREATININE FOR GFR 0.95 MG/DL (0.70-1.30); GLOMERULAR FILTRATION RATE > 60.0 (>35); GLUCOSE, FASTING 109 MG/DL (70-100); MAGNESIUM LEVEL 2.3 MG/DL (1.8-2.4); NT-PRO BNP 2025 PG/ML (<450); POTASSIUM SERUM 3.5 MEQ/L (3.5-5.1); SODIUM LEVEL 139 MEQ/L (136-145)
--- NOTE | 2020-11-26 09:25 | DS.PDOC ---
Discharge Summary General Date of Admission Nov 19, 2020 at 02:24 Date of Discharge 11/26/20 discharged to [facility] Discharge Summary Hospitalist discharge summary dictated job #[id number]. If urgently needed, pls call vinodype at [phone] for STAT technologist development. Vital Signs/I&Os Vital Signs Date Time Temp Pulse Resp B/P (MAP) Pulse Ox O2 Delivery O2 Flow Rate FiO2 11/26/20 00:43 18 95 Nasal Cannula 2.0 11/25/20 22:00 97.8 80 117/67 (84) 11/21/20 06:00 31 I&O- Last 24 Hours up to 6 AM 11/26/20 06:00 Intake Total 1920 ml Output Total 1401 ml Balance 519 ml Laboratory Data Labs 24H Laboratory Tests 2 11/26/20 07:32: Nucleated Red Blood Cells % (auto) 0.0, Anion Gap 5L, Glomerular Filtration Rate > 60.0, Calcium Level 8.3L, Whole Blood Ionized Calcium 4.1L, Magnesium Level 2.3, HA-Tdo-N-Type Natriuretic Peptide CBC/BMP Laboratory Tests 11/26/20 07:32 Microbiology Microbiology 11/22/20 Respiratory Virus Panel (PCR) (WILLIAM) - Final, Complete Discharge Medications Scheduled Allopurinol (Zyloprim) 300 Mg Tab, 150 MG PO DAILY, (Reported) Amiodarone HCl (Amiodarone HCl) 200 Mg Tab, 200 MG PO DAILY, (Reported) Aspirin (Ecotrin) 81 Mg Tablet.dr, 81 MG PO DAILY for pain Atorvastatin Calcium (Atorvastatin Calcium) 10 Mg Tab, 10 MG PO QHS, (Reported) Carvedilol (Carvedilol) 3.125 Mg Tablet, 3.125 MG PO BID, (Reported) Famotidine (Famotidine) 20 Mg Tablet, 40 MG PO DAILY, (Reported) Ferrous Sulfate (Ferrous Sulfate) 325 Mg Tablet, 325 MG PO DAILY, (Reported) Furosemide (Furosemide) 20 Mg Tablet, 20 MG PO DAILY, (Reported) Lactose-Reduced Food (Ensure Enlive) 237 Ml Liquid, 120 ML PO BID, (Reported) Levothyroxine Sodium (Synthroid) 125 Mcg Tablet, 125 MCG PO DAILY, (Reported) Loratadine (Loratadine) 10 Mg Tablet, 10 MG PO QHS, (Reported) Mirtazapine (Remeron) 30 Mg Tablet, 30 MG PO DAILY, (Reported) Multivitamins (Thera M Plus Tablet) 1 Tab Tab, 1 TAB PO DAILY, (Reported) Propylene Glycol/Peg 400/Pf (Systane 0.3-0.4% Eye Drop) 1 Each Droperette, 1 DROP OU QID, (Reported) Sertraline Hcl (Zoloft) 100 Mg Tablet, 100 MG PO DAILY, (Reported) Tamsulosin HCl (Flomax) 0.4 Mg Capsule, 0.4 MG PO QHS, (Reported) Scheduled PRN Acetaminophen (Tylenol Extra Strength) 500 Mg Tablet, 1,000 MG PO Q8H PRN for PAIN, (Reported) Ammonium Lactate (Ammonium Lactate) 12% Cream..g., 1 DOSE TOP BID PRN for RASH, (Reported) Bisacodyl (Bisacodyl) 10 Mg Supp.rect, [address] DAILY PRN for CONSTIPATION, (Reported) Fluticasone Propionate (Flonase Allergy Relief) 50 Mcg/Act Spr, 1 SPRAY NA DAILY PRN for RHINITIS, (Reported) Loperamide HCl (Imodium A-D) 2 Mg Tablet, 2 MG PO QID PRN for DIARRHEA, (Reported) Milk Of Magnesia (Milk of Magnesia) 2,400 Mg/10 Ml Oral.susp, 10 ML PO DAILY PRN for CONSTIPATION, (Reported) Nitroglycerin (Nitrostat) 0.4 Mg Subl, 0.4 MG SL NITRO PRN for CHEST PAIN, (Reported) Sodium Phosphate,Weld-Dibasic (Fleet Enema) 133 Ml Enema, [address] DAILY PRN for CONSTIPATION, (Reported) Allergies Coded Allergies: No Known Allergies (Verified Allergy, Unknown, 03/12/19) MEGAN BROOKE MD Nov 26, 2020 09:18
[2020-11-26] MEDS: MOM 30ML SUSPENSION UDC PO SCH (09:45)
[2020-11-26] MEDS: DOCUSATE SODIUM 100MG CAPSULE PO SCH (09:46)
[2020-11-26] MEDS: allopurinoL 300 MG TAB PO SCH (09:46)
[2020-11-26] MEDS: SERTRALINE 100 MG TAB PO SCH (09:46)
[2020-11-26] MEDS: FERROUS SULFATE 325MG TAB PO SCH (09:46)
[2020-11-26] MEDS: MIRTAZAPINE 15 MG TAB PO SCH (09:46)
[2020-11-26] MEDS: AMIODARONE 200 MG TAB (PACERONE) PO SCH (09:46)
[2020-11-26] MEDS: MULTIVITAMINS/MINERALS THERAP 1 TAB PO SCH (09:47)
[2020-11-26] MEDS: POLYVINYL ALCOHOL OPHTH SOLN 15 ML(LIQUITEARS) OU SCH (09:47)
[2020-11-26] MEDS: FAMOTIDINE 20 MG TAB PO SCH (09:47)
--- NOTE | 2020-11-26 13:12 | DSES ---
DISCHARGE SUMMARY DATE OF ADMISSION: 11/19/2020 DATE OF ANTICIPATED DISCHARGE: 11/26/2020 CONSULTANTS IN THIS ADMISSION: Orthopaedic surgeon, Dr. Jluis Connelly, Dr. Ruma Lenz read the echocardiogram on 11/22/2020. PROCEDURES DURING THIS ADMISSION: 11/19/2020, right hip cemented hemiarthroplasty. PRIMARY DISCHARGE DIAGNOSES: 1. Mechanical fall. 2. Right hip fracture status post right cemented hemiarthroplasty. 3. Acute on chronic diastolic congestive heart failure exacerbation. 4. Paroxysmal atrial fibrillation, not on anticoagulation. 5. History of tachybrady syndrome status post pacemaker. 6. History of coronary artery disease (CAD). 7. History of hypertension. 8. Dyslipidemia. 9. BPH. 10. Gout. 11. History of rectal prolapse status post repair. 12. History of rectal bleeding while on Xarelto. 13. Anxiety/depression. 14. Gastroesophageal reflux disease (GERD). 15. Anemia of chronic disease. 16. Moderately severe pulmonary hypertension with pulmonary artery (PA) pressure of 50 mmHg. DISCHARGE MEDICATIONS: - aspirin 81 mg daily - acetaminophen 1 gram every 8 hours as needed - Zyloprim 150 daily - amiodarone 200 daily - ammonia lactate topically twice a day as needed - atorvastatin 10 mg nightly - bisacodyl 10 mg as needed for constipation - Coreg 3.125 twice a day - famotidine 40 daily - ferrous sulfate 325 daily - Flonase one spray inhaled as needed - Lasix 20 daily - lactose reduced Ensure Enlive 120 mL by mouth twice a day - Synthroid 125 mcg daily - loperamide 2 mg four times a day as needed - loratadine 10 mg nightly - milk of magnesium 10 mL daily as needed - mirtazapine 30 mg daily - multivitamin one tablet daily - nitroglycerin 0.4 as needed - Systane one drop both eyes four times a day - Zoloft 100 daily - Fleet enema as needed daily - Flomax 0.4 mg nightly DISCHARGE INSTRUCTIONS: Postoperative management per Dr. Connelly, orthopaedic surgeon. Followup in the office within 1 week of discharge. Followup with primary care and heel builder machine within 1 week of discharge. 1.8 liter fluid restriction, weight daily, call heel builder machine if two pound or more weight gain. HOSPITAL COURSE: This is an 89-year-old male, had a mechanical fall, and presented with right hip fracture on 11/19/2020, medically optimized by hospitalist, and underwent right cemented hemiarthroplasty by Dr. Connelly. Patient developed postoperative fluid overload, found to be in acute decompensated diastolic congestive heart failure, was diuresed with Lasix 40 mg IV every 8 hours but remained in positive balance. Patient's admission weight was 70.91 kg, peaked at 76.4 kg. Patient had shortness of breath. Chest x-ray showed bilateral pleural effusions. Echocardiogram showed diastolic dysfunction with ejection fraction of 65%, grade 2 ventricular paced, mild mitral and tricuspid insufficiency with at least moderately severe pulmonary hypertension with PA pressure of 50 mmHg. Patient was diuresed and was net negative on 11/23/2020 and 11/24/2020. Despite being positive balance patient says his breathing is improved. Repeat chest x-ray on 11/25/2020 shows atelectasis with no evidence of pleural edema or effusion. Patient initially did not do well with boluses of Lasix with blood pressure dropping down to systolic of 93/67. He was then changed over to IV Lasix drip of 5 mL/hour with improvement of his shortness of breath. Was found to have clearance of the pleural effusions on repeat chest x-ray. Patient is resumed back on his home medications with holding parameters for systolic pressure less than 130 mmHg. Despite having some redness at the hip site, Dr. Connelly did not want any changes in the plan. He was not concerned about any postoperative infection at this time. Patient had not had a fever and had a white count of 10.1. Patient is otherwise medically stable for hospital discharge back to [facility]), postoperative management and followup per orthopaedic surgery. PHYSICAL EXAMINATION ON DISCHARGE: Temperature 97.8, pulse 80, respiratory rate 18, blood pressure 117/67, 95% on 2 liters nasal cannula. Generally: Patient is very hard of hearing. No jugular venous distension (JVD), no thyromegaly. Moist mucous membranes. Lungs are clear to auscultation. Fine crepitations at bilateral bases. Heart: S1, S2, sinus rhythm. Abdomen is soft, nontender, nondistended, positive bowel sounds. Postoperative right hip. Extremities: No cyanosis, clubbing, or any pitting edema. LABORATORY DATA: White count 10, hemoglobin 11, hematocrit 34, platelet count 257, sodium 139, potassium 3.5, chloride 97, bicarbonate 37, BUN 34, creatinine 0.95, glucose of 109. Microbiology: Respiratory panel negative. IMAGING STUDIES: 11/19/2020 femoral x-ray no acute abnormality. Hip x-ray 11/19/2020, acute displaced right femoral neck fracture. CT cervical spine 11/19/2020, no acute findings. CT chest 11/22/2020, moderate bilateral effusions, atelectasis, cardiomegaly, small hepatic cyst previously has decreased in size. Repeat chest x-ray 11/25/2020, no evidence of pleural effusion or pulmonary edema, bibasilar platelike atelectasis, cardiomegaly with pacemaker. TIME SPENT ON DISCHARGE: 30 minutes. HELEND
== END 2020-11-26 11:47 | DRG 521 ==
LOC: M ED 00:30 → M ED INP 02:24 → ENRESERV 03:15 → M MSPAV 04:14 → M MS5PR 16:01 → M MSPAV 11-22 18:25
PROVIDERS: ADMIT Family Medicine; ATTEND General Practice
PROC: 0SRR0J9 Replacement of Right Hip Joint, Femoral Surface with Synthetic Substitute, Cemented, Open Approach (ICD-10-PCS; principal; 2020-11-19 15:00)
DX: S72.001A Fracture of unspecified part of neck of right femur, initial encounter for closed fracture (principal); I50.33 Acute on chronic diastolic (congestive) heart failure; I48.20 Chronic atrial fibrillation, unspecified; W18.30XA Fall on same level, unspecified, initial encounter; Y92.128 Other place in nursing home as the place of occurrence of the external cause; Y93.01 Activity, walking, marching and hiking; Y99.8 Other external cause status; I25.10 Atherosclerotic heart disease of native coronary artery without angina pectoris; I49.5 Sick sinus syndrome; I11.0 Hypertensive heart disease with heart failure; E78.5 Hyperlipidemia, unspecified; E03.9 Hypothyroidism, unspecified; Z66 Do not resuscitate; F03.90 Unspecified dementia, unspecified severity, without behavioral disturbance, psychotic disturbance, mood disturbance, and anxiety; N40.0 Benign prostatic hyperplasia without lower urinary tract symptoms; R09.02 Hypoxemia; M10.9 Gout, unspecified; F41.9 Anxiety disorder, unspecified; I27.20 Pulmonary hypertension, unspecified; D63.8 Anemia in other chronic diseases classified elsewhere; K21.9 Gastro-esophageal reflux disease without esophagitis; F32.9 Major depressive disorder, single episode, unspecified; Z96.651 Presence of right artificial knee joint; Z98.41 Cataract extraction status, right eye; Z98.42 Cataract extraction status, left eye; Z95.5 Presence of coronary angioplasty implant and graft; Z95.0 Presence of cardiac pacemaker; Z79.899 Other long term (current) drug therapy; Z87.19 Personal history of other diseases of the digestive system

== ENCOUNTER → 2020-11-30 | Outpatient (REF) | payer MEDICARE, OTHER, MEDICAID ==
[~2020-11-30] MED LIST changes: +ACET-897 PO; +AMMO12CR7 TOP; +BISA10SU4 PR; +ECOT81TA5 PO; +ENSU1LIQ36 PO; +FERR1TAB8 PO; +FLEEENE12 PR; +LORA-622 PO; +MOM30SS PO; +ZOLO100T PO
[2020-11-30 10:40] LABS: HEMATOCRIT 32.3 % (42.0-52.0); HEMOGLOBIN 10.2 g/dl (13.5-17.5); MEAN CORPUSCULAR HEMOGLOBIN 29.5 pg (27.0-33.0); MEAN CORPUSCULAR HGB CONC 31.6 g/dl (32.0-36.5); MEAN CORPUSCULAR VOLUME 93.4 fl (80.0-96.0); PLATELET COUNT, AUTOMATED 212 10^3/uL (150-450); RED BLOOD COUNT 3.46 10^6/uL (4.30-6.10); WHITE BLOOD COUNT 20.4 10^3/uL (4.0-10.0)
[2020-11-30 10:55] LABS: BLOOD UREA NITROGEN 38 MG/DL (7-18); CALCIUM LEVEL 8.7 MG/DL (8.8-10.2); CARBON DIOXIDE LEVEL 31 MEQ/L (21-32); CHLORIDE LEVEL 99 MEQ/L (98-107); CREATININE FOR GFR 1.08 MG/DL (0.70-1.30); GLOMERULAR FILTRATION RATE > 60.0 (>35); GLUCOSE, FASTING 138 MG/DL (70-100); POTASSIUM SERUM 3.9 MEQ/L (3.5-5.1); SODIUM LEVEL 138 MEQ/L (136-145)
--- NOTE | 2020-11-30 16:30 | REPPI ---
INDICATION: RIGHT FEMER }S/P FALL ROOM S261-2. COMPARISON: None. TECHNIQUE: Four views of the right femur are obtained portably. FINDINGS: Four views of the right femur demonstrate right knee arthroplasty and right hip hemiarthroplasty components in good position. No femur fracture is seen. Vascular calcification is noted and there are surgical clips in the popliteal soft tissues. There is a surgical clip in the right inguinal soft tissues as well.. No fracture or subluxation is seen. No opaque foreign body noted. IMPRESSION: Status post right knee arthroplasty and right hip hemiarthroplasty. No traumatic abnormality noted.. <Electronically signed by Antonio Pozo > 11/30/20 [id number]
--- NOTE | 2020-11-30 16:31 | REPPI ---
INDICATION: CHF. COMPARISON: Comparison portable chest x-ray November 25, 2020.. TECHNIQUE: Semi-erect AP radiographs, two views. FINDINGS: The lungs are exposed at a poor level of inspiration similar to the prior study. There is coarse bibasilar platelike atelectasis right greater than left. Prior sternotomy wires are again seen. Moderate cardiomegaly is observed unchanged. A bipolar pacemaker leads remain in place via the left side as before. Pulmonary vasculature is somewhat cephalized. No definite pulmonary edema. No ray pleural effusion seen. IMPRESSION: Cardiomegaly with pacemaker and prior sternotomy. Low level of inspiration with bibasilar discoid atelectasis. Pulmonary vascular cephalization, mild CHF pattern. <Electronically signed by Antonio Pozo > 11/30/20 [id number]
== END ==
PROVIDERS: ATTEND Internal Medicine
DX: J98.11 Atelectasis (principal); I51.7 Cardiomegaly; M10.9 Gout, unspecified; I48.91 Unspecified atrial fibrillation; D64.9 Anemia, unspecified; D72.829 Elevated white blood cell count, unspecified; Z95.0 Presence of cardiac pacemaker

== ENCOUNTER → 2020-12-01 | Outpatient (CLI) | payer MEDICARE, OTHER, MEDICAID ==
--- NOTE | 2020-12-01 14:49 | REP ---
INDICATION: INABILITY TO MOVE IN BED PT IN CT HOLDING AREA. COMPARISON: 11/30/2020. TECHNIQUE: Two views right hip. FINDINGS: There is no fracture or dislocation. Tell it prosthesis of the proximal right femur is unchanged in appearance and position. Metallic clips are seen the soft tissues adjacent to the lesser trochanter. There are vascular calcifications also seen in that region. IMPRESSION: No acute findings. <Electronically signed by Vladislav Peck > 12/01/20 [id number]
== END ==
LOC: M RAD 14:05
PROVIDERS: ATTEND Physician Assistant
DX: Z74.09 Other reduced mobility (principal)

== ENCOUNTER → 2020-12-01 | Outpatient (REF) | payer MEDICARE, OTHER, MEDICAID ==
[2020-12-01 10:05] LABS: HEMATOCRIT 33.5 % (42.0-52.0); HEMOGLOBIN 10.5 g/dl (13.5-17.5); MEAN CORPUSCULAR HEMOGLOBIN 29.7 pg (27.0-33.0); MEAN CORPUSCULAR HGB CONC 31.3 g/dl (32.0-36.5); MEAN CORPUSCULAR VOLUME 94.6 fl (80.0-96.0); PLATELET COUNT, AUTOMATED 246 10^3/uL (150-450); RED BLOOD COUNT 3.54 10^6/uL (4.30-6.10); WHITE BLOOD COUNT 16.6 10^3/uL (4.0-10.0)
[2020-12-01 10:31] LABS: BLOOD UREA NITROGEN 33 MG/DL (7-18); CALCIUM LEVEL 8.6 MG/DL (8.8-10.2); CARBON DIOXIDE LEVEL 32 MEQ/L (21-32); CHLORIDE LEVEL 101 MEQ/L (98-107); CREATININE FOR GFR 0.96 MG/DL (0.70-1.30); GLOMERULAR FILTRATION RATE > 60.0 (>35); GLUCOSE, FASTING 115 MG/DL (70-100); POTASSIUM SERUM 3.9 MEQ/L (3.5-5.1); SODIUM LEVEL 140 MEQ/L (136-145)
== END ==
PROVIDERS: ATTEND Internal Medicine
DX: I50.9 Heart failure, unspecified (principal)

== ENCOUNTER → 2020-12-02 | Outpatient (REF) | payer MEDICARE, OTHER, MEDICAID ==
[2020-12-02 09:27] LABS: HEMATOCRIT 32.6 % (42.0-52.0); HEMOGLOBIN 10.1 g/dl (13.5-17.5); MEAN CORPUSCULAR HEMOGLOBIN 29.3 pg (27.0-33.0); MEAN CORPUSCULAR VOLUME 94.5 fl (80.0-96.0); PLATELET COUNT, AUTOMATED 295 10^3/uL (150-450); RED BLOOD COUNT 3.45 10^6/uL (4.30-6.10); WHITE BLOOD COUNT 12.6 10^3/uL (4.0-10.0)
[2020-12-02 09:58] LABS: BLOOD UREA NITROGEN 33 MG/DL (7-18); CARBON DIOXIDE LEVEL 30 MEQ/L (21-32); CHLORIDE LEVEL 101 MEQ/L (98-107); CREATININE FOR GFR 0.93 MG/DL (0.70-1.30); GLOMERULAR FILTRATION RATE > 60.0 (>35); GLUCOSE, FASTING 96 MG/DL (70-100); NT-PRO BNP 2792 PG/ML (<450); POTASSIUM SERUM 4.4 MEQ/L (3.5-5.1); SODIUM LEVEL 138 MEQ/L (136-145)
== END ==
PROVIDERS: ATTEND Internal Medicine
DX: I50.9 Heart failure, unspecified (principal)

== ENCOUNTER → 2020-12-07 | Outpatient (REF) | PROVIDERS: ATTEND Internal Medicine | DX: M54.5 Low back pain (principal) ==

== ENCOUNTER → 2020-12-07 | Outpatient (CLI) | payer MEDICARE, OTHER, MEDICAID ==
--- NOTE | 2020-12-07 12:31 | REP ---
INDICATION: LOW BACK PAIN. COMPARISON: Comparison right hip radiographs December 01, 2020 and November 19, 2020 radiographs are compared.. TECHNIQUE: AP view of the pelvis. FINDINGS: Single AP view of the pelvis demonstrate right hip hemiarthroplasty in good position. Bony pelvic ring is intact. Left hip joint space is preserved. Symphysis pubis and SI joints are unremarkable. Vascular calcification is again noted. There are degenerative disc changes at L4-5 and L3-4 in the lower lumbar spine. Visualized bowel gas pattern is normal. IMPRESSION: Status post right hip hemiarthroplasty. 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 Vascular calcification. No acute abnormality seen. <Electronically signed by Antonio Pozo > 12/07/20 [id number]
--- NOTE | 2020-12-07 12:34 | REP ---
INDICATION: LOW BACK PAIN. COMPARISON: Comparison lumbar spine radiographs are from May 05, 2009.. TECHNIQUE: Five views of the lumbar spine are provided. FINDINGS: There is a levoconvex lumbar curvature which is more pronounced today than on the prior study. A right heart pacemaker and median sternotomy wires are new findings. A right hip hemiarthroplasty is been performed. No bony destructive lesion is seen. Vertebral body heights are preserved. There is straightening of the normal lumbar lordosis on the lateral radiograph. Advanced degenerative disc disease is seen throughout the lumbar spine. This is most pronounced at L3-4 and L2-3. Vacuum phenomenon is seen at L2-3 and there is discogenic sclerosis. Disc space narrowing and sclerosis are present at L3-4 and to a lesser extent at 4 5 and 1 2 as well as at T12-L1. There are osteoarthritic facet arthropathy changes in the mid cervical spine and L4-5 associated with the scoliosis. Psoas margins are symmetric. SI joints are unremarkable. Degenerative disc changes have progressed considerably since the 2009 prior study. IMPRESSION: Degenerative spondylosis changes radiographically more pronounced than on the 2009 prior exam. Levoconvex scoliosis. Osteoarthritic facet disease. Straightening. No acute bony abnormality. <Electronically signed by Antonio Pozo > 12/07/20 [id number]
== END ==
LOC: M RAD 11:55
PROVIDERS: ATTEND Physician Assistant
DX: M47.816 Spondylosis without myelopathy or radiculopathy, lumbar region (principal); M48.061 Spinal stenosis, lumbar region without neurogenic claudication; M46.96 Unspecified inflammatory spondylopathy, lumbar region; M61.9 Calcification and ossification of muscle, unspecified; Z96.641 Presence of right artificial hip joint

== ENCOUNTER → 2020-12-08 | Outpatient (REF) | payer MEDICARE, OTHER, MEDICAID ==
[2020-12-08 10:08] LABS: HEMATOCRIT 31.8 % (42.0-52.0); HEMOGLOBIN 9.9 g/dl (13.5-17.5); MEAN CORPUSCULAR HEMOGLOBIN 29.6 pg (27.0-33.0); MEAN CORPUSCULAR HGB CONC 31.1 g/dl (32.0-36.5); MEAN CORPUSCULAR VOLUME 95.2 fl (80.0-96.0); PLATELET COUNT, AUTOMATED 294 10^3/uL (150-450); RED BLOOD COUNT 3.34 10^6/uL (4.30-6.10); WHITE BLOOD COUNT 10.9 10^3/uL (4.0-10.0)
[2020-12-08 10:39] LABS: BLOOD UREA NITROGEN 20 MG/DL (7-18); CARBON DIOXIDE LEVEL 27 MEQ/L (21-32); CHLORIDE LEVEL 105 MEQ/L (98-107); CREATININE FOR GFR 0.86 MG/DL (0.70-1.30); GLOMERULAR FILTRATION RATE > 60.0 (>35); GLUCOSE, FASTING 86 MG/DL (70-100); NT-PRO BNP 2116 PG/ML (<450); POTASSIUM SERUM 4.6 MEQ/L (3.5-5.1); SODIUM LEVEL 139 MEQ/L (136-145)
--- NOTE | 2020-12-08 15:54 | REPPI ---
INDICATION: CHF RECHECK FROM 11/30/20. COMPARISON: 11/30/2020 TECHNIQUE: AP erect chest FINDINGS: Sternotomy wires and a dual lead pacer over the left mid chest with leads terminating in the right atrium and right ventricle. There is cardiomegaly with left atrial and left ventricular enlargement again seen. There is a better level of inflation than on the previous study. There are less basilar opacities on both sides but still some atelectasis or infiltrates and effusions suggested left greater than right. However the vascular redistribution is improved and pulmonary vessel margins are more distinct in the left upper lobe than on the previous study indicating lessening of interstitial edema. The aorta is calcified at the arch and tortuous. Airway intact. IMPRESSION: 1. Some improvement of the vascular congestion and interstitial edema. Basilar infiltrates, atelectasis and chronic fibrotic changes again seen with some effusions left greater than right. <Electronically signed by John Diaz > 12/08/20 [id number]
== END ==
PROVIDERS: ATTEND Internal Medicine
DX: R91.8 Other nonspecific abnormal finding of lung field (principal); I50.9 Heart failure, unspecified

== ENCOUNTER → 2020-12-10 | Outpatient (REF) | payer MEDICARE, OTHER, MEDICAID ==
[2020-12-10 21:44] LABS: INFLUENZA A AMPLIFICATION NEGATIVE (NEGATIVE); INFLUENZA B AMPLIFICATION NEGATIVE (NEGATIVE)
== END ==
PROVIDERS: ATTEND Internal Medicine
DX: Z11.59 Encounter for screening for other viral diseases (principal)

== ENCOUNTER → 2020-12-21 | Outpatient (REF) | payer MEDICARE, OTHER, MEDICAID | PROVIDERS: ATTEND Internal Medicine | DX: Z20.822 Contact with and (suspected) exposure to COVID-19 (principal) ==

== ENCOUNTER → 2020-12-23 | Outpatient (REF) | payer MEDICARE, OTHER, MEDICAID ==
--- NOTE | 2020-12-23 15:26 | REPPI ---
INDICATION: WHEEZING. 256-1. COMPARISON: Comparison chest x-ray December 08, 2020.. TECHNIQUE: Upright AP chest radiograph. FINDINGS: Patient is status post prior median sternotomy. A bipolar pacemaker is seen in the enlarged heart unchanged. Extensive vascular calcification is seen in the soft tissues of the neck and in the mediastinum unchanged. There is platelike atelectasis in the right base. No definite new infiltrate is seen. There are chronic pleuroparenchymal opacities on the right indicative of calcific pleural plaquing. This is unchanged from comparison chest CT. IMPRESSION: No acute infiltrate. Platelike atelectasis right base. Calcific pleural plaquing on the right. Cardiomegaly with vascular cephalization and pacemaker again noted. <Electronically signed by Antonio Pozo > 12/23/20 [id number]
== END ==
PROVIDERS: ATTEND Internal Medicine
DX: J98.11 Atelectasis (principal); I51.7 Cardiomegaly; R06.2 Wheezing; Z95.0 Presence of cardiac pacemaker

== ENCOUNTER → 2020-12-28 | Outpatient (REF) | payer MEDICARE, OTHER, MEDICAID ==
[2020-12-28 11:53] LABS: HEMATOCRIT 36.4 % (42.0-52.0); HEMOGLOBIN 11.2 g/dl (13.5-17.5); MEAN CORPUSCULAR HEMOGLOBIN 29.4 pg (27.0-33.0); MEAN CORPUSCULAR HGB CONC 30.8 g/dl (32.0-36.5); MEAN CORPUSCULAR VOLUME 95.5 fl (80.0-96.0); PLATELET COUNT, AUTOMATED 175 10^3/uL (150-450); RED BLOOD COUNT 3.81 10^6/uL (4.30-6.10); WHITE BLOOD COUNT 7.3 10^3/uL (4.0-10.0)
[2020-12-28 12:25] LABS: BLOOD UREA NITROGEN 24 MG/DL (7-18); CALCIUM LEVEL 9.5 MG/DL (8.8-10.2); CARBON DIOXIDE LEVEL 24 MEQ/L (21-32); CHLORIDE LEVEL 104 MEQ/L (98-107); CREATININE FOR GFR 0.86 MG/DL (0.70-1.30); GLOMERULAR FILTRATION RATE > 60.0 (>35); GLUCOSE, FASTING 104 MG/DL (70-100); POTASSIUM SERUM 4.8 MEQ/L (3.5-5.1); SODIUM LEVEL 138 MEQ/L (136-145)
== END ==
PROVIDERS: ATTEND Internal Medicine
DX: I50.9 Heart failure, unspecified (principal); Z20.822 Contact with and (suspected) exposure to COVID-19
CPT/HCPCS: 36415; 80048; 85027; U0003

== ENCOUNTER → 2021-01-26 | Outpatient (REF) | payer MEDICARE, OTHER, MEDICAID ==
[2021-01-26 11:10] LABS: HEMATOCRIT 36.5 % (42.0-52.0); HEMOGLOBIN 11.1 g/dl (13.5-17.5); MEAN CORPUSCULAR HGB CONC 30.4 g/dl (32.0-36.5); MEAN CORPUSCULAR VOLUME 95.3 fl (80.0-96.0); PLATELET COUNT, AUTOMATED 168 10^3/uL (150-450); RED BLOOD COUNT 3.83 10^6/uL (4.30-6.10); WHITE BLOOD COUNT 7.7 10^3/uL (4.0-10.0)
[2021-01-26 11:37] LABS: BLOOD UREA NITROGEN 32 MG/DL (7-18); CALCIUM LEVEL 8.8 MG/DL (8.8-10.2); CARBON DIOXIDE LEVEL 27 MEQ/L (21-32); CHLORIDE LEVEL 106 MEQ/L (98-107); CREATININE FOR GFR 0.87 MG/DL (0.70-1.30); GLOMERULAR FILTRATION RATE > 60.0 (>35); GLUCOSE, FASTING 133 MG/DL (70-100); POTASSIUM SERUM 4.2 MEQ/L (3.5-5.1); SODIUM LEVEL 139 MEQ/L (136-145)
== END ==
PROVIDERS: ATTEND Physician Assistant
DX: Z13.89 Encounter for screening for other disorder (principal); Z79.899 Other long term (current) drug therapy